=== PATIENT | male | born 1985 | race Two or more races ===

== ENCOUNTER 2019-12-21 11:53 | Outpatient (REF) | payer MEDICARE, MEDICAID, SELFPAY ==
[2019-12-21 13:50] LABS: MANUAL DIFF FLAG NO
[2019-12-21 13:59] LABS: Basophils Percent Auto 0.6 % (0-2); Eosinophils Percent Auto 0.6 % (0-4); Hematocrit 42.8 % (42-52); Hemoglobin 13.4 g/dl (14.0-18.0); Imm Gran Abs Auto 0.02 X10*3/uL (0.00-0.03); Imm Gran Pct Auto 0.3 % (0.0-0.4); Lymphocytes Absolute Auto 2.6 X10*3/uL (1.2-4.9); Lymphocytes Percent Auto 40.7 % (20-40); Mean Corpuscular HGB Conc 31.3 g/dl (31.0-36.0); Mean Corpuscular Hemoglobin 26.1 pg (27.0-33.0); Mean Corpuscular Volume 83.4 fL (80-98); Mean Platelet Volume 9.7 fL (9.4-12.4); Monocytes Absolute Auto 0.5 X10*3/uL (0.1-1.2); Monocytes Percent Auto 7.9 % (2-11); Neutrophils Absolute Auto 3.2 X10*3/uL (2.0-8.3); Neutrophils Percent Auto 49.9 % (45-73); Platelet Count 263 X10*3/uL (160-400); Red Blood Count 5.13 X10*6/uL (4.60-5.80); Red Cell Distribution Width 15.4 % (11.0-16.0); White Blood Count 6.5 X10*3/uL (4.8-10.8)
[2019-12-21 14:29] LABS: Estimated Average Glucose 151 mg/dL; Hemoglobin A1c % 6.9 %
[2019-12-21 14:31] LABS: Anion Gap 16 (12-20); Blood Urea Nitrogen 10 mg/dL (9-16); Calcium 9.2 mg/dL (8.4-10.2); Carbon Dioxide 20 mmol/L (22-29); Chloride 106 mmol/L (96-108); Estimated Glomerular Filt Rate > 60; Glucose Random 181 mg/dL (60-115); Potassium 4.1 mmol/l (3.3-5.1); Sodium 138 mmol/L (135-145)
[2019-12-21 14:47] LABS: TSH reflex Free T4 1.07 mIU/mL (0.32-4.0)
[2019-12-23 06:56] LABS: LDL Cholesterol Direct 110 mg/dL (<100)
== END 2019-12-21 11:54 | disposition home or self-care (01) ==
LOC: HO.HMGCLDS 11:53
PROVIDERS: PCP Internal Medicine; Visit Provider Internal Medicine
DX: E78.9 Disorder of lipoprotein metabolism, unspecified (principal); Z72.0 Tobacco use; K21.9 Gastro-esophageal reflux disease without esophagitis; J45.909 Unspecified asthma, uncomplicated; E13.9 Other specified diabetes mellitus without complications; Z79.4 Long term (current) use of insulin; F33.9 Major depressive disorder, recurrent, unspecified; F41.1 Generalized anxiety disorder
CPT/HCPCS: 36415; 80048; 83036; 83721; 84443; 85025

== ENCOUNTER 2020-10-24 13:14 | Outpatient (REF) | payer MEDICARE, MEDICAID, SELFPAY ==
[2020-10-24 14:01] LABS: Hematocrit 41.4 % (42-52)
[2020-10-24 14:19] LABS: Creatinine Urine 161.81 mg/dL
[2020-10-24 14:34] LABS: Estimated Average Glucose 160 mg/dL; Hemoglobin A1c % 7.2 %
[2020-10-24 14:35] LABS: Alanine Aminotransferase 22 U/L (0-40); Albumin Level 4.1 g/dL (3.5-5.0); Alkaline Phosphatase 72 U/L (39-117); Anion Gap 13 (12-20); Aspartate Amino Transferase 11 U/L (5-37); Bilirubin Direct < 0.2 mg/dL (0.0-0.5); Bilirubin Total 0.2 mg/dL (0.0-1.0); Blood Urea Nitrogen 9 mg/dL (9-16); Calcium 9.1 mg/dL (8.4-10.2); Carbon Dioxide 22 mmol/L (22-29); Chloride 108 mmol/L (96-108); Estimated Glomerular Filt Rate > 60; Glucose Random 206 mg/dL (60-115); Potassium 4.4 mmol/L (3.3-5.1); Sodium 139 mmol/L (135-145); Total Protein 6.8 g/dL (6.5-8.0)
[2020-10-24 14:40] LABS: Microalbum/Creatinine Ratio Ur 9.2 ug/mg cr
[2020-10-25 08:12] LABS: Syphilis Screen Nonreactive (Nonreactive)
[2020-10-25 08:30] LABS: HBc Num1 0.05 S/CO (0.00-0.79); HBsAGNum1 0.22 S/CO (0.00-0.99); HIV AB/AG Nonreactive (Nonreactive); HIV Num 1 0.08 S/CO (0.00-0.99); Hepatitis A Antibody IgM 0.18 Index (0-0.79); Hepatitis B Core Antibody Nonreactive (Nonreactive); Hepatitis B Surface Antigen Negative (Negative); ~HepC Num1 0.08 S/CO (0.00-0.79); ~Hepatitis A Antibody IgM Nonreactive (Nonreactive); ~Hepatitis C Antibody Nonreactive (Nonreactive)
[2020-10-25 08:42] LABS: HBS Num1 19.54 mIU/mL (0-7.99); ~Hepatitis B Surface Antibody REACTIVE (Nonreactive)
[2020-10-25 15:47] LABS: Herpes Simplex Type 2 IgG <0.90 index
== END 2020-10-24 13:15 | disposition home or self-care (01) ==
LOC: HO.HMGCLDS 13:14
PROVIDERS: PCP Internal Medicine; Visit Provider Internal Medicine
DX: E78.9 Disorder of lipoprotein metabolism, unspecified (principal); E66.01 Morbid (severe) obesity due to excess calories; Z68.42 Body mass index [BMI] 45.0-49.9, adult; E11.65 Type 2 diabetes mellitus with hyperglycemia; I10 Essential (primary) hypertension; J45.40 Moderate persistent asthma, uncomplicated; Z20.2 Contact with and (suspected) exposure to infections with a predominantly sexual mode of transmission; Z79.4 Long term (current) use of insulin; Z72.0 Tobacco use
CPT/HCPCS: 36415; 80053; 82043; 82248; 83036; 85014; 85018; 86695; 86696; 86704; 86706; 86709; 86780; 86803; 87340; 87389

== ENCOUNTER → 2020-11-28 13:37 | Outpatient (BNVA) | payer MEDICARE, MEDICAID, SELFPAY | PROVIDERS: PCP Internal Medicine; Visit Provider Nurse Practitioner Gerontology | DX: E11.65 Type 2 diabetes mellitus with hyperglycemia (principal); E78.5 Hyperlipidemia, unspecified; I10 Essential (primary) hypertension; F17.200 Nicotine dependence, unspecified, uncomplicated; E66.09 Other obesity due to excess calories; F41.8 Other specified anxiety disorders; Z68.41 Body mass index [BMI] 40.0-44.9, adult; J30.2 Other seasonal allergic rhinitis; T78.49XA Other allergy, initial encounter; Z88.8 Allergy status to other drugs, medicaments and biological substances; Z79.4 Long term (current) use of insulin; Z79.899 Other long term (current) drug therapy | CPT/HCPCS: 82947; Q3014 ==

== ENCOUNTER → 2020-12-12 12:22 | Outpatient (BNVA) | payer MEDICARE, MEDICAID, SELFPAY | PROVIDERS: PCP Internal Medicine; Visit Provider Nurse Practitioner Gerontology | DX: E11.65 Type 2 diabetes mellitus with hyperglycemia (principal); E78.5 Hyperlipidemia, unspecified; E66.01 Morbid (severe) obesity due to excess calories; I10 Essential (primary) hypertension; Z79.4 Long term (current) use of insulin; Z68.42 Body mass index [BMI] 45.0-49.9, adult | CPT/HCPCS: 82947; 99212 ==

== ENCOUNTER 2020-12-13 14:01 | Outpatient (REF) | payer MEDICARE, MEDICAID, SELFPAY ==
--- NOTE | ~2020-12-13 | XR_ITS ---
EXAMINATION: XR CHEST CLINICAL INFORMATION: Unspecified asthma. Acute exacerbation. COMPARISON: 03/02/2019 TECHNIQUE: 2 views of the chest were obtained. FINDINGS: Lungs are well-inflated and clear. Trachea is midline in position. No interstitial disease, consolidation or mass. No pulmonary edema, pleural effusion or pneumothorax. Cardiac silhouette and pulmonary vessels are normal in size. The mediastinum and samuel have normal contour. There are several old, healed left anterior rib fractures. Otherwise, the visualized bones, and upper abdomen, are unremarkable. XR/XR chest 2V IMPRESSION: No acute cardiopulmonary abnormality.
== END 2020-12-13 14:02 | disposition home or self-care (01) ==
LOC: HO.HMGCX 14:01
PROVIDERS: PCP Internal Medicine; Visit Provider Physician Assistant Medical
DX: J45.901 Unspecified asthma with (acute) exacerbation (principal); R05.9 Cough, unspecified
CPT/HCPCS: 71046

== ENCOUNTER 2020-12-13 14:36 | Outpatient (REF) | payer MEDICARE, MEDICAID, SELFPAY | END 2020-12-13 14:37 | disposition home or self-care (01) | LOC: HO.LAB 14:36 | PROVIDERS: Visit Provider Physician Assistant Medical | DX: Z20.822 Contact with and (suspected) exposure to COVID-19 (principal); R05.9 Cough, unspecified; J45.901 Unspecified asthma with (acute) exacerbation | CPT/HCPCS: U0003; U0005 ==

== ENCOUNTER 2021-02-12 14:33 | Outpatient (REF) | payer MEDICARE, MEDICAID, SELFPAY ==
[2021-02-12 16:54] LABS: Estimated Average Glucose 163 mg/dL; Hemoglobin A1c % 7.3 %
[2021-02-12 16:56] LABS: Alanine Aminotransferase 22 U/L (0-40); Albumin Level 4.2 g/dL (3.5-5.0); Alkaline Phosphatase 57 U/L (39-117); Anion Gap 13 (12-20); Aspartate Amino Transferase 17 U/L (5-37); Bilirubin Total 0.4 mg/dL (0.0-1.0); Blood Urea Nitrogen 7 mg/dL (9-16); Calcium 9.5 mg/dL (8.4-10.2); Carbon Dioxide 22 mmol/L (22-29); Chloride 107 mmol/L (96-108); Cholesterol 175 mg/dL; Estimated Glomerular Filt Rate > 60; Glucose Fasting 120 mg/dL (60-99); HDL Cholesterol 33 mg/dL; LDL Cholesterol Calculated 119 mg/dl; Potassium 3.6 mmol/L (3.3-5.1); Sodium 138 mmol/L (135-145); Triglycerides 116 mg/dL
[2021-02-14 02:32] LABS: LDL Cholesterol Direct 129 mg/dL (<100)
== END 2021-02-12 14:34 | disposition home or self-care (01) ==
LOC: HO.HMGCLDS 14:33
PROVIDERS: Absent Provider Nurse Practitioner Gerontology; PCP Internal Medicine; Visit Provider Internal Medicine
DX: E11.65 Type 2 diabetes mellitus with hyperglycemia (principal); E66.01 Morbid (severe) obesity due to excess calories; E78.9 Disorder of lipoprotein metabolism, unspecified; I10 Essential (primary) hypertension; J45.40 Moderate persistent asthma, uncomplicated; K21.9 Gastro-esophageal reflux disease without esophagitis; Z68.42 Body mass index [BMI] 45.0-49.9, adult; Z72.0 Tobacco use; Z79.4 Long term (current) use of insulin
CPT/HCPCS: 36415; 80048; 80053; 80061; 83036; 83721

== ENCOUNTER → 2021-07-03 13:39 | Outpatient (BNVA) | payer MEDICARE, MEDICAID, SELFPAY | PROVIDERS: PCP Internal Medicine; Visit Provider Nurse Practitioner Gerontology | DX: E78.5 Hyperlipidemia, unspecified (principal); E66.01 Morbid (severe) obesity due to excess calories; I10 Essential (primary) hypertension; E11.65 Type 2 diabetes mellitus with hyperglycemia; Z79.4 Long term (current) use of insulin; Z68.41 Body mass index [BMI] 40.0-44.9, adult | CPT/HCPCS: 82947; 83036; 99212 ==

== ENCOUNTER 2022-10-04 14:12 | Outpatient (AMB) | payer MEDICARE, MEDICAID, SELFPAY ==
[2022-10-04 14:14] VITALS: BP 140/90; PULSE 107; O2SAT 97; BMI 37.8
--- NOTE | 2022-10-04 14:14 | MHC.PC.OV ---
Vital Signs 10/04/22 14:14 Height 5 ft 9 in Weight 256 lb 4 oz BMI 37.8 BP 140/90 H Blood Pressure Location Lt brachial Position Sitting Pulse 107 H Pulse Source Pulse Oximeter Pulse Oximetry (%) 97 Oxygen Delivery Method Room Air Intake Visit Reasons: Medication follow up, due for diabetic eye exam Allergies iodine [IODINE] Allergy (Unknown, Verified 10/04/22 14:15) RASH, unknown Environmental Allergy (Unknown, Uncoded 01/11/22 15:40) Unknown Loverisol Allergy (Unknown, Uncoded 01/11/22 15:40) unknown SEASONAL ALLERGIES Allergy (Unknown, Uncoded 01/11/22 15:40) ASTHMA Medication List - Last Reconciled 10/04/22 by Manav Jones MD albuterol sulfate 90 mcg/actuation (ProAir HFA) 2 puffs inhalation Q4H PRN albuterol sulfate 90 mcg/actuation 2 puffs inhalation Q6H PRN 30 days alcohol swabs (Alcohol Prep Pads) 2 pad topical DAILY 90 days blood sugar diagnostic (EmergentDetectionuch Ultra Test strips) 4x daily blood-glucose meter (EmergentDetectionuch Ultra2 Meter kit) As directed bupropion HCl 150 mg PO QAM bupropion HCl 300 mg PO DAILY divalproex 500 mg PO BID dulaglutide (Trulicity) 0.75 mg (0.5 mL) subcut QWEEK hydroxyzine HCl 10 mg PO BEDTIME PRN insulin glargine U-300 conc (Toujeo Max U-300 SoloStar) 80 units (0.2667 mL) subcut DAILY lancets (FreeStyle Lancets) As directed 3 times a day lancets (Wenjuan.comTouch UltraSoft Lancets) 4x daily loratadine 10 mg PO DAILY losartan 25 mg PO QAM metoprolol tartrate 50 mg PO BID montelukast 10 mg PO BEDTIME pantoprazole 40 mg PO DAILY 90 days pen needle, diabetic (Comfort EZ Pen [place]) USE DIRECTED ONCE DAILY risperidone 3 mg PO simvastatin 80 mg PO BEDTIME 90 days topiramate 200 mg PO BID Tobacco use date assessed: 10/04/22 Dental Screening Dental Screen Date: 10/04/22 Did you have a dental visit in the last 12 months?: Yes Did you have a dental problem in the last 6 months where you did not have access to dental care?: No Was dental information given to patient?: No HPI Medication follow up, due for diabetic eye exam HPI Details Patient is a 37-year-old male came in today for his follow-up appointment, He was last seen December of last year and did not come in for follow-up after that Patient is currently on Toujeo 80 units, Trulicity 0.75 mg/week Intolerant of metformin due to diarrhea Hemoglobin A1c is due Asthma is stable patient is taking Symbicort 2 puffs b.i.d.. Patient is also on montelukast. Hypertension: Patient is taking losartan 25 mg daily and metoprolol 50 mg b.i.d. blood pressure is slightly elevated today at 140/90 Dyspepsia stable with omeprazole 40 mg, need refill Patient is also on simvastatin 80 mg for lipid control Patient have intellectual disability And psychiatric illness which is being managed by psychiatry Patient also is obese with a BMI of 37.8 losing weight gradually Due for labs Follow-up 3 months [facility] Medical History Anxiety, generalized Asthma Bipolar disorder Chronic GERD Current use of insulin Depression, major, recurrent DM2 (diabetes mellitus, type 2) Essential hypertension History of alcohol abuse Hyperlipidemia LDL goal <100 Lipid disorder Obesity due to excess calories Schizophrenia Sleep apnea Suicide attempt by multiple drug overdose Tobacco abuse Type 2 diabetes mellitus with hyperglycemia, with long-term current use of insulin Surgical History History of foot surgery History of surgery Family History Father No problems noted. Mother Breast cancer Diabetes Mental health disorder Paternal Aunt Diabetes Social History Household Members: None Housing: Apartment Alcohol intake: former Patient Tobacco Use Status: Current everyday Tobacco user Cigarette Packs Per Day: 0.5 e-Cigarette/Vaping Use: Never Used Substance Use Type: Marijuana Current occupational status: unemployed Cognitive needs: No Hearing needs: No Vision needs: No Questionnaire Thrive Questionnaire Date Thrive assessed: 05/15/21 AUDIT C Alcohol Use Questionnaire (AUDIT-C) 1. How often do you have a drink containing alcohol?: 2-4 times a month 2. How many drinks containing alcohol do you have on a typical day when you are drinking?: 1 or 2 3. How often do you have six or more drinks on one occasion?: Never Total Score: 2 Score Reviewed/Action Taken: Yes KOKI-7 AMB Questionnaire KOIK-7 Date KOKI - 7 assessed: 05/15/21 Source: Developed by Drs. Gianfranco Cardoso, Cait Centeno, Mark Montano and colleagues, with an educational janice from [employer]. Review of Systems Const Denies chills and Denies fever(s) ENT Denies epistaxis and Denies nasal discharge Card Denies chest pain Resp Denies chest congestion, Denies cough and Denies hemoptysis GI Denies diarrhea and Denies nausea Skin/Breast Denies rash Neuro Reports no additional complaints Psych Reports no additional complaints Endo Reports no additional complaints Physical exam (Primary Care) Vital Signs: Last Vital Signs Pulse 107 H 10/04/22 14:14 BP 140/90 H 10/04/22 14:14 Pulse Ox 97 10/04/22 14:14 Oxygen Delivery Method Room Air 10/04/22 14:14 BMI result Body Mass Index 37.8 Tobacco/Smoking Status: Tobacco use Status Tobacco use date assessed 10/04/22 10/04/22 14:19 Patient Tobacco Use Status Current everyday Tobacco 10/04/22 14:16 e-Cigarette/Vaping Use Never Used 10/04/22 14:19 Thrive Assessment: Date of Thrive Assessment Date Thrive assessed 05/15/21 10/04/22 14:16 Const General: cooperative, comfortable and no acute distress Orientation/consciousness: patient oriented x3 HENMN Head: Yes normocephalic Eyes General: appearance normal, both eyes and all related structures Neck Neck: Yes supple Resp Effort & Inspection: normal respiratory effort, no cough and no stridor Cardio Rhythm: regular rhythm Heart sounds: S1 normal heart sound present and S2 normal heart sound present Skin General skin exam: turgor normal Neuro General: patient oriented x3, tone normal and moves all extremities Extrem Right lower extremity: no edema Left lower extremity: no edema Assessment and Plan Assessment & Plan (1) DM2 (diabetes mellitus, type 2): Code(s): E11.9 - Type 2 diabetes mellitus without complications (2) Psychiatric illness: Code(s): F99 - Mental disorder, not otherwise specified (3) Intellectual disability: Code(s): F79 - Unspecified intellectual disabilities (4) Lipid disorder: Code(s): E78.9 - Disorder of lipoprotein metabolism, unspecified (5) Current use of insulin: Code(s): 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 (6) Tobacco abuse: Code(s): Z72.0 - Tobacco use (7) Hyperlipidemia LDL goal <100: Code(s): E78.5 - Hyperlipidemia, unspecified (8) Type 2 diabetes mellitus with hyperglycemia, with long-term current use of insulin: Code(s): E11.65 - Type 2 diabetes mellitus with hyperglycemia; 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 (9) Depression, major, recurrent: Code(s): F33.9 - Major depressive disorder, recurrent, unspecified (10) Anxiety, generalized: Code(s): F41.1 - Generalized anxiety disorder (11) Chronic GERD: Code(s): K21.9 - Gastro-esophageal reflux disease without esophagitis (12) Schizophrenia: Code(s): F20.9 - Schizophrenia, unspecified (13) Obesity due to excess calories: Code(s): E66.09 - Other obesity due to excess calories Qualifiers: Obesity classification: adult class 3 (BMI >= 40) Serious obesity comorbidity presence: with serious comorbidity Body mass index: BMI 45.0-49.9 Qualified Code(s): E66.01 - Morbid (severe) obesity due to excess calories; Z68.42 - Body mass index [BMI] 45.0-49.9, adult (14) Essential hypertension: Code(s): I10 - Essential (primary) hypertension (15) Asthma, moderate persistent: Code(s): J45.40 - Moderate persistent asthma, uncomplicated Plan Patient is a 37-year-old male came in today for his follow-up appointment, He was last seen December of last year and did not come in for follow-up after that Patient is currently on Toujeo 80 units, Trulicity 0.75 mg/week Intolerant of metformin due to diarrhea Hemoglobin A1c is due Asthma is stable patient is taking Symbicort 2 puffs b.i.d.. Patient is also on montelukast. Hypertension: Patient is taking losartan 25 mg daily and metoprolol 50 mg b.i.d. blood pressure is slightly elevated today at 140/90 Dyspepsia stable with omeprazole 40 mg, need refill Patient is also on simvastatin 80 mg for lipid control Patient have intellectual disability And psychiatric illness which is being managed by psychiatry Patient also is obese with a BMI of 37.8 losing weight gradually Due for labs Follow-up 3 months Orders: Orders Comprehensive Met. 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 Hemoglobin A1c Today E11.65 - Type 2 diabetes mellitus with hyperglycemia, E11.9 - Type 2 diabetes mellitus without complications, E78.5 - Hyperlipidemia, unspecified, E78.9 - Disorder of lipoprotein metabolism, unspecified, F79 - Unspecified intellectual disabilities, F99 - Mental disorder, not otherwise specified, Z72.0 - Tobacco use, 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 LDL Cholesterol Direct Today E11.65 - Type 2 diabetes mellitus with hyperglycemia, E11.9 - Type 2 diabetes mellitus without complications, E78.5 - Hyperlipidemia, unspecified, E78.9 - Disorder of lipoprotein metabolism, unspecified, F79 - Unspecified intellectual disabilities, F99 - Mental disorder, not otherwise specified, Z72.0 - Tobacco use, Z79.4 - snf (current) use of insulin TSH reflex Free T4 Today E11.65 - Type 2 diabetes mellitus with hyperglycemia, E11.9 - Type 2 diabetes mellitus without complications, E78.5 - Hyperlipidemia, unspecified, E78.9 - Disorder of lipoprotein metabolism, unspecified, F79 - Unspecified intellectual disabilities, F99 - Mental disorder, not otherwise specified, Z72.0 - Tobacco use, 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 Microalbumin, Random (w Creat) Today E11.65 - Type 2 diabetes mellitus with hyperglycemia, E11.9 - Type 2 diabetes mellitus without complications, E78.5 - Hyperlipidemia, unspecified, E78.9 - Disorder of lipoprotein metabolism, unspecified, F79 - Unspecified intellectual disabilities, F99 - Mental disorder, not otherwise specified, Z72.0 - Tobacco use, 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 Complete Blood Count Auto Diff Today E11.65 - Type 2 diabetes mellitus with hyperglycemia, E11.9 - Type 2 diabetes mellitus without complications, E78.5 - Hyperlipidemia, unspecified, E78.9 - Disorder of lipoprotein metabolism, unspecified, F79 - Unspecified intellectual disabilities, F99 - Mental disorder, not otherwise specified, Z72.0 - Tobacco use, 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 Medications: Refilled pantoprazole 40 mg PO DAILY 90 tabs 0RF 90 days simvastatin 80 mg PO BEDTIME 90 tabs 0RF 90 days E78.9 - Disorder of lipoprotein metabolism, unspecified metoprolol tartrate 50 mg PO BID 180 tabs 0RF losartan 25 mg PO QAM 90 tabs 0RF loratadine 10 mg PO DAILY 90 tabs 0RF dulaglutide (Trulicity) 0.75 mg (0.5 mL) subcut QWEEK 6 mL 2RF E11.65 - Type 2 diabetes mellitus with hyperglycemia insulin glargine U-300 conc (Toujeo Max U-300 SoloStar) 80 units (0.2667 mL) subcut DAILY 24 mL 1RF E11.65 - Type 2 diabetes mellitus with hyperglycemia, Z79.4 - snf (current) use of insulin Coding Level of Care Code Est Pt Level 4 (10687) Diagnoses DM2 (diabetes mellitus, type 2) E11.9 Psychiatric illness F99 Intellectual disability F79 Lipid disorder E78.9 Current use of insulin Z79.4 Tobacco abuse Z72.0 Hyperlipidemia LDL goal <100 E78.5 Type 2 diabetes mellitus with hyperglycemia, with long-term current use of insulin E11.65; Z79.4 Depression, major, recurrent F33.9 Anxiety, generalized F41.1 Chronic GERD K21.9 Schizophrenia F20.9 Obesity due to excess calories E66.01; Z68.42 Obesity classification: adult class 3 (BMI >= 40) Serious obesity comorbidity presence: with serious comorbidity Body mass index: BMI 45.0-49.9 Essential hypertension I10 Asthma, moderate persistent J45.40
== END 2022-10-04 14:38 | disposition home or self-care (01) ==
PROVIDERS: PCP Internal Medicine; Visit Provider Internal Medicine
DX: E11.65 Type 2 diabetes mellitus with hyperglycemia (principal); Z79.4 Long term (current) use of insulin; F33.9 Major depressive disorder, recurrent, unspecified; K21.9 Gastro-esophageal reflux disease without esophagitis; F99 Mental disorder, not otherwise specified; F79 Unspecified intellectual disabilities; E78.9 Disorder of lipoprotein metabolism, unspecified; Z72.0 Tobacco use; E78.5 Hyperlipidemia, unspecified; F41.1 Generalized anxiety disorder; F20.9 Schizophrenia, unspecified; E66.01 Morbid (severe) obesity due to excess calories
CPT/HCPCS: 99214

== ENCOUNTER 2022-10-04 14:40 | Outpatient (REF) | payer MEDICARE, MEDICAID, SELFPAY ==
[2022-10-04 16:41] LABS: MANUAL DIFF FLAG NO
[2022-10-04 16:48] LABS: Basophils Percent Auto 0.5 % (0-2); Eosinophils Absolute Auto 0.1 X10*3/uL (0.0-0.4); Eosinophils Percent Auto 0.6 % (0-4); Hematocrit 39.1 % (42.0-52.0); Hemoglobin 12.5 g/dl (14.0-18.0); Imm Gran Abs Auto 0.04 X10*3/uL (0.00-0.03); Imm Gran Pct Auto 0.5 % (0.0-0.4); Lymphocytes Absolute Auto 2.2 X10*3/uL (1.2-4.9); Lymphocytes Percent Auto 25.6 % (20-40); Mean Corpuscular Hemoglobin 24.1 pg (27.0-33.0); Mean Corpuscular Volume 75.5 fL (80.0-98.0); Mean Platelet Volume 9.8 fL (9.4-12.4); Monocytes Absolute Auto 0.7 X10*3/uL (0.1-1.2); Monocytes Percent Auto 8.6 % (2-11); Neutrophils Absolute Auto 5.5 x10*3/uL (2.0-8.3); Neutrophils Percent Auto 64.2 % (45-73); Platelet Count 326 X10*3/uL (160-400); Red Blood Count 5.18 X10*6/uL (4.60-5.80); Red Cell Distribution Width 16.5 % (11.0-16.0); White Blood Count 8.6 X10*3/uL (4.8-10.8)
[2022-10-04 17:24] LABS: Alanine Aminotransferase 14 U/L (0-40); Albumin Level 4.5 g/dL (3.5-5.0); Alkaline Phosphatase 57 U/L (39-117); Anion Gap 14 (12-20); Aspartate Amino Transferase 12 U/L (5-37); Bilirubin Total 0.3 mg/dL (0.0-1.0); Blood Urea Nitrogen 11 mg/dL (9-16); Calcium 10.7 mg/dL (8.4-10.2); Carbon Dioxide 23 mmol/L (22-29); Chloride 107 mmol/L (96-108); Estimated Glomerular Filt Rate > 60; Glucose Random 135 mg/dL (60-115); Potassium 4.1 mmol/L (3.3-5.1); Sodium 140 mmol/L (135-145); Total Protein 7.9 g/dL (6.5-8.0)
[2022-10-05 03:23] LABS: Estimated Average Glucose 111 mg/dL; Hemoglobin A1c % 5.5 %
[2022-10-05 16:09] LABS: LDL Cholesterol Direct 99 mg/dL (<100)
== END 2022-10-04 14:41 | disposition home or self-care (01) ==
LOC: HO.HMGCLDS 14:40
PROVIDERS: PCP Internal Medicine; Visit Provider Internal Medicine
DX: E11.65 Type 2 diabetes mellitus with hyperglycemia (principal); E78.5 Hyperlipidemia, unspecified; E78.9 Disorder of lipoprotein metabolism, unspecified; F79 Unspecified intellectual disabilities; F99 Mental disorder, not otherwise specified; Z72.0 Tobacco use; Z79.4 Long term (current) use of insulin
CPT/HCPCS: 36415; 80053; 83036; 83721; 84443; 85025

== ENCOUNTER 2023-01-08 14:06 | Outpatient (AMB) | payer MEDICARE, MEDICAID, SELFPAY ==
--- NOTE | 2023-01-08 14:10 | A.OFFPC_ITS ---
Vital Signs 01/08/23 14:12 Height 5 ft 9 in Weight 256 lb BMI 37.8 BP 110/74 Blood Pressure Location Rt brachial Position Sitting Pulse 84 Pulse Source Pulse Oximeter Pulse Oximetry (%) 98 Oxygen Delivery Method Room Air Intake Visit Reasons: 3 month follow up Allergies iodine [IODINE] Allergy (Unknown, Verified 01/08/23 14:13) RASH, unknown Environmental Allergy (Unknown, Uncoded 01/08/23 14:13) Unknown Loverisol Allergy (Unknown, Uncoded 01/08/23 14:13) unknown SEASONAL ALLERGIES Allergy (Unknown, Uncoded 01/08/23 14:13) ASTHMA Medication List - Last Reconciled 01/08/23 by Manav Jones MD albuterol sulfate 90 mcg/actuation (ProAir HFA) 2 puffs inhalation Q4H PRN albuterol sulfate 90 mcg/actuation 2 puffs inhalation Q6H PRN 30 days alcohol swabs (Alcohol Prep Pads) 2 pad topical BID 90 days blood sugar diagnostic (Confideuch Ultra Test strips) 4x daily blood-glucose meter (Confideuch Ultra2 Meter kit) As directed bupropion HCl 150 mg PO QAM bupropion HCl 300 mg PO DAILY divalproex 500 mg PO BID dulaglutide (Trulicity) 0.75 mg (0.5 mL) subcut QWEEK hydroxyzine HCl 10 mg PO BEDTIME PRN insulin glargine U-300 conc (Toujeo Max U-300 SoloStar) 60 units (0.2 mL) subcut DAILY lancets 4x daily lancets (FreeStyle Lancets) As directed 3 times a day loratadine 10 mg PO DAILY losartan 25 mg PO QAM metoprolol tartrate 50 mg PO BID montelukast 10 mg PO BEDTIME pantoprazole 40 mg PO DAILY 90 days pen needle, diabetic (Comfort EZ Pen [place]) USE DIRECTED ONCE DAILY risperidone 3 mg PO simvastatin 80 mg PO BEDTIME 90 days topiramate 200 mg PO BID Tobacco use date assessed: 01/08/23 Dental Screening Dental Screen Date: 01/08/23 Did you have a dental visit in the last 12 months?: Yes Did you have a dental problem in the last 6 months where you did not have access to dental care?: No Was dental information given to patient?: Patient has dentist HPI 3 month follow up HPI Details Patient is a 37-year-old male came in today for his follow-up appointment Patient is currently on Toujeo 60 units, Trulicity 0.75 mg/week Intolerant of metformin due to diarrhea His last hemoglobin A1c was 5.5% in September that is when his Toujeo from 80 units to 60 units Asthma is stable patient is taking Symbicort 2 puffs b.i.d.. Patient is also on montelukast. Hypertension: Patient is taking losartan 25 mg daily and metoprolol 50 mg b.i.d. blood pressure is well controlled Dyspepsia stable with omeprazole 40 mg, need refill Patient is also on simvastatin 80 mg for lipid control Patient have intellectual disability Patient have a history of schizophrenia, major depression and anxiety Currently taking medication through Psychiatry Patient also is obese with a BMI of 37.8 losing weight gradually Labs to be done before next visit/order placed Follow-up 3 months [facility] Medical History DM2 (diabetes mellitus, type 2) Bipolar disorder Obesity due to excess calories Hyperlipidemia LDL goal <100 Essential hypertension Type 2 diabetes mellitus with hyperglycemia, with long-term current use of insulin Sleep apnea Tobacco abuse Suicide attempt by multiple drug overdose History of alcohol abuse Schizophrenia Lipid disorder Chronic GERD Asthma Anxiety, generalized Depression, major, recurrent Current use of insulin Surgical History History of foot surgery History of surgery Family History Father No problems noted. Mother Breast cancer Diabetes Mental health disorder Paternal Aunt Diabetes Social History Household Members: None Housing: Apartment Alcohol intake: former Patient Tobacco Use Status: Current everyday Tobacco user Cigarette Packs Per Day: 0.5 e-Cigarette/Vaping Use: Never Used Substance Use Type: Marijuana Current occupational status: unemployed Cognitive needs: No Hearing needs: No Vision needs: No Questionnaire PHQ-9 Over the last 2 weeks, how often have you been bothered by any of the following problems? 1. Little interest or pleasure in doing things: not at all 2. Feeling down, depressed, or hopeless: not at all 3. Trouble falling or staying asleep, or sleeping too much: not at all 4. Feeling tired or having little energy: not at all 5. Poor appetite or overeating: not at all 6. Feeling bad about yourself - or that you are a failure or have let yourself or your family down: not at all 7. Trouble concentrating on things, such as reading the newspaper or watching television: not at all 8. Moving or speaking so slowly that other people could have noticed. Or the opposite - being so fidgety or restless that you have been moving around a lot more than usual: not at all 9. Thoughts that you would be better off or of hurting yourself in some way: not at all Total score: 0 Depression Screening Interpretation: Negative Depression Screening Done: Yes 79252 - PHQ-9 Billing: Yes Source: Developed by Drs. Gianfranco Cardoso, Cait Centeno, Mark Montano and colleagues, with an educational janice from [employer]. Thrive Questionnaire Date Thrive assessed: 01/08/23 I am a: Patient What is your living situation today?: I have a steady place to live Within the past 12 months, did the food you bought not last and you didn't have the money to get more?: Never true Within the past 12 months, did you worry whether your food would run out before you got money to buy more?: Never true Do you have trouble paying for medicines?: No Do you have trouble getting transportation to medical appointments?: No Do you have trouble paying your heating and electricity bill?: No Do you have trouble taking care of your child, family member or friend?: No Do you have trouble with day-to-day activities such as bathing, preparing meals, shopping, managing finances, etc.?: No Are you currently unemployed and looking for a job?: No Are you interested in more education?: No Please select the resources that you would like help with: None Currently or been in a relationship where the following occur: no concerns reported KOKI-7 AMB Questionnaire KOKI-7 Date KOKI - 7 assessed: 01/08/23 Feeling nervous, anxious, or on edge: 0 = Not at all Not being able to stop or control worryin = Not at all Worrying too much about different things: 0 = Not at all Trouble relaxin = Not at all Being so restless that it is hard to sit still: 0 = Not at all Becoming easily annoyed or irritable: 0 = Not at all Feeling afraid as if something awful might happen: 0 = Not at all Total KOKI-7 score (0-4 normal; 5-9 mild; 10-14 moderate; 15-21 severe): 0 Source: Developed by Drs. Gianfranco Cardoso, Cait Centeno, Mark Montano and colleagues, with an educational janice from [employer]. KOKI-7 Assessment Billing KOKI-7 Assessment Tool: KOKI-7 Assessment 40616 Review of Systems Const Denies chills and Denies fever(s) ENT Denies epistaxis and Denies nasal discharge Card Denies chest pain Resp Denies chest congestion, Denies cough and Denies hemoptysis GI Denies diarrhea and Denies nausea Skin/Breast Denies rash Neuro Reports no additional complaints Psych Reports no additional complaints Endo Reports no additional complaints Physical exam (Primary Care) Vital Signs: Last Vital Signs Pulse 84 01/08/23 14:12 BP 110/74 01/08/23 14:12 Pulse Ox 98 01/08/23 14:12 Oxygen Delivery Method Room Air 01/08/23 14:12 BMI result Body Mass Index 37.8 Tobacco/Smoking Status: Tobacco use Status Tobacco use date assessed 01/08/23 01/08/23 14:13 Patient Tobacco Use Status Current everyday Tobacco 01/08/23 14:12 e-Cigarette/Vaping Use Never Used 01/08/23 14:12 PHQ-9: PHQ-9 Score PHQ-9: Total score 0 01/08/23 14:18 Depression Screening Interpretation: Negative Thrive Assessment: Date of Thrive Assessment Date Thrive assessed 01/08/23 01/08/23 14:18 Currently or been in a relationship where the following occur: no concerns reported Const General: cooperative, comfortable and no acute distress Orientation/consciousness: patient oriented x3 HENLA Head: Yes normocephalic Eyes General: appearance normal, both eyes and all related structures Neck Neck: Yes supple Resp Effort & Inspection: normal respiratory effort, no cough and no stridor Cardio Rhythm: regular rhythm Heart sounds: S1 normal heart sound present and S2 normal heart sound present Skin General skin exam: turgor normal Neuro General: patient oriented x3, tone normal and moves all extremities Extrem Right lower extremity: no edema Left lower extremity: no edema Assessment and Plan Assessment & Plan (1) Type 1 diabetes mellitus with morbid obesity: Code(s): E10.69 - Type 1 diabetes mellitus with other specified complication; E66.01 - Morbid (severe) obesity due to excess calories (2) Asthma, moderate persistent: Code(s): J45.40 - Moderate persistent asthma, uncomplicated Qualifiers: Asthma complication type: uncomplicated Qualified Code(s): J45.40 - Moderate persistent asthma, uncomplicated (3) Essential hypertension: Code(s): I10 - Essential (primary) hypertension (4) Obesity due to excess calories: Code(s): E66.09 - Other obesity due to excess calories Qualifiers: Obesity classification: adult class 3 (BMI >= 40) Serious obesity comorbidity presence: with serious comorbidity Body mass index: BMI 45.0-49.9 Qualified Code(s): E66.01 - Morbid (severe) obesity due to excess calories; Z68.42 - Body mass index [BMI] 45.0-49.9, adult (5) Schizophrenia: Code(s): F20.9 - Schizophrenia, unspecified Qualifiers: Schizophrenia type: paranoid schizophrenia Qualified Code(s): F20.0 - Paranoid schizophrenia (6) Lipid disorder: Code(s): E78.9 - Disorder of lipoprotein metabolism, unspecified (7) Chronic GERD: Code(s): K21.9 - Gastro-esophageal reflux disease without esophagitis (8) Depression, major, recurrent: Code(s): F33.9 - Major depressive disorder, recurrent, unspecified Qualifiers: Active/Remission status: in partial remission Qualified Code(s): F33.41 - Major depressive disorder, recurrent, in partial remission (9) Current use of insulin: Code(s): Z79.4 - intermodal customer service (current) use of insulin Plan Patient is a 37-year-old male came in today for his follow-up appointment Patient is currently on Toujeo 60 units, Trulicity 0.75 mg/week Intolerant of metformin due to diarrhea His last hemoglobin A1c was 5.5% in September that is when his Toujeo from 80 units to 60 units Asthma is stable patient is taking Symbicort 2 puffs b.i.d.. Patient is also on montelukast. Hypertension: Patient is taking losartan 25 mg daily and metoprolol 50 mg b.i.d. blood pressure is well controlled Dyspepsia stable with omeprazole 40 mg, need refill Patient is also on simvastatin 80 mg for lipid control Patient have intellectual disability Patient have a history of schizophrenia, major depression and anxiety Currently taking medication through Psychiatry Patient also is obese with a BMI of 37.8 losing weight gradually Labs to be done before next visit/order placed Follow-up 3 months Orders: Orders Hemoglobin A1c Today E10.69 - Type 1 diabetes mellitus with other specified complication, E66.01 - Morbid (severe) obesity due to excess calories, E66.09 - Other obesity due to excess calories, E78.9 - Disorder of lipoprotein metabolism, unspecified, F20.9 - Schizophrenia, unspecified, F33.9 - Major depressive disorder, recurrent, unspecified, I10 - Essential (primary) hypertension, J45.40 - Moderate persistent asthma, uncomplicated, K21.9 - Gastro-esophageal reflux disease without esophagitis, Z79.4 - intermodal customer service (current) use of insulin Complete Blood Count Auto Diff Today E10.69 - Type 1 diabetes mellitus with other specified complication, E66.01 - Morbid (severe) obesity due to excess calories, E66.09 - Other obesity due to excess calories, E78.9 - Disorder of lipoprotein metabolism, unspecified, F20.9 - Schizophrenia, unspecified, F33.9 - Major depressive disorder, recurrent, unspecified, I10 - Essential (primary) hypertension, J45.40 - Moderate persistent asthma, uncomplicated, K21.9 - Gastro-esophageal reflux disease without esophagitis, Z79.4 - intermodal customer service (current) use of insulin Microalbumin, Random (w Creat) Today E10.69 - Type 1 diabetes mellitus with other specified complication, E66.01 - Morbid (severe) obesity due to excess calories, E66.09 - Other obesity due to excess calories, E78.9 - Disorder of lipoprotein metabolism, unspecified, F20.9 - Schizophrenia, unspecified, F33.9 - Major depressive disorder, recurrent, unspecified, I10 - Essential (primary) hypertension, J45.40 - Moderate persistent asthma, uncomplicated, K21.9 - Gastro-esophageal reflux disease without esophagitis, Z79.4 - long-term (current) use of 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 Panel Today E10.69 - Type 1 diabetes mellitus with other specified complication, E66.01 - Morbid (severe) obesity due to excess calories, E66.09 - Other obesity due to excess calories, E78.9 - Disorder of lipoprotein metabolism, unspecified, F20.9 - Schizophrenia, unspecified, F33.9 - Major depressive disorder, recurrent, unspecified, I10 - Essential (primary) hypertension, J45.40 - Moderate persistent asthma, uncomplicated, K21.9 - Gastro-esophageal reflux disease without esophagitis, Z79.4 - long-term (current) use of insulin LDL Cholesterol Direct Today E10.69 - Type 1 diabetes mellitus with other specified complication, E66.01 - Morbid (severe) obesity due to excess calories, E66.09 - Other obesity due to excess calories, E78.9 - Disorder of lipoprotein metabolism, unspecified, F20.9 - Schizophrenia, unspecified, F33.9 - Major depressive disorder, recurrent, unspecified, I10 - Essential (primary) hypertension, J45.40 - Moderate persistent asthma, uncomplicated, K21.9 - Gastro-esophageal reflux disease without esophagitis, Z79.4 - intermodal customer service (current) use of insulin Medications: Changed From insulin glargine U-300 conc (Toujeo Max U-300 SoloStar) 60 units (0.2 mL) subcut DAILY 24 mL 1RF E11.65 - Type 2 diabetes mellitus with hyperglycemia, Z79.4 - intermodal customer service (current) use of insulin To insulin glargine U-300 conc (Toujeo Max U-300 SoloStar) 50 units (0.1667 mL) subcut DAILY 24 mL 1RF E11.65 - Type 2 diabetes mellitus with hyperglycemia, Z79.4 - intermodal customer service (current) use of insulin From insulin glargine U-300 conc (Toujeo Max U-300 SoloStar) 50 units (0.1667 mL) subcut DAILY 24 mL 1RF E11.65 - Type 2 diabetes mellitus with hyperglycemia, Z79.4 - long-term (current) use of insulin To insulin glargine U-300 conc (Toujeo Max U-300 SoloStar) 60 units (0.2 mL) subcut DAILY 24 mL 1RF E11.65 - Type 2 diabetes mellitus with hyperglycemia, Z79.4 - intermodal customer service (current) use of insulin Coding Level of Care Code Est Pt Level 4 (03682) Diagnoses Type 1 diabetes mellitus with morbid obesity E10.69; E66.01 Moderate persistent asthma without complication J45.40 Asthma complication type: uncomplicated Essential hypertension I10 Class 3 severe obesity due to excess calories with serious comorbidity and body mass index (BMI) of 45.0 to 49.9 in adult E66.01; Z68.42 Obesity classification: adult class 3 (BMI >= 40) Serious obesity comorbidity presence: with serious comorbidity Body mass index: BMI 45.0-49.9 Paranoid schizophrenia F20.0 Schizophrenia type: paranoid schizophrenia Lipid disorder E78.9 Chronic GERD K21.9 Recurrent major depressive disorder, in partial remission F33.41 Active/Remission status: in partial remission Current use of insulin Z79.4 Additional Codes KOKI-7 Assessment Billing - OKKI-7 Assessment Tool: KOKI-7 Assessment [id number] ([id number])
[2023-01-08 14:12] VITALS: BP 110/74; PULSE 84; O2SAT 98; BMI 37.8
== END 2023-01-08 15:33 | disposition home or self-care (01) ==
PROVIDERS: PCP Internal Medicine; Visit Provider Internal Medicine
DX: E10.69 Type 1 diabetes mellitus with other specified complication (principal); E66.01 Morbid (severe) obesity due to excess calories; Z68.42 Body mass index [BMI] 45.0-49.9, adult; F20.0 Paranoid schizophrenia; F33.41 Major depressive disorder, recurrent, in partial remission; Z79.4 Long term (current) use of insulin; J45.40 Moderate persistent asthma, uncomplicated; I10 Essential (primary) hypertension; E78.9 Disorder of lipoprotein metabolism, unspecified; K21.9 Gastro-esophageal reflux disease without esophagitis
CPT/HCPCS: 99214

== ENCOUNTER 2023-07-08 15:18 | Outpatient (AMB) | payer MEDICARE, MEDICAID, SELFPAY ==
--- NOTE | 2023-07-08 15:22 | A.OFFPC_ITS ---
Vital Signs 07/08/23 15:23 Height 5 ft 9 in Weight 245 lb 6 oz BMI 36.2 BP 126/82 Blood Pressure Location Rt brachial Position Sitting Pulse 87 Pulse Source Pulse Oximeter Pulse Oximetry (%) 98 Oxygen Delivery Method Room Air Intake Visit Reasons: 9 month follow up Allergies iodine [IODINE] Allergy (Unknown, Verified 07/08/23 15:28) RASH, unknown Environmental Allergy (Unknown, Uncoded 01/08/23 14:13) Unknown Loverisol Allergy (Unknown, Uncoded 01/08/23 14:13) unknown SEASONAL ALLERGIES Allergy (Unknown, Uncoded 01/08/23 14:13) ASTHMA Medication List - Last Reconciled 07/08/23 by Manav Jones MD albuterol sulfate 90 mcg/actuation (ProAir HFA) 2 puffs inhalation Q4H PRN albuterol sulfate 90 mcg/actuation 2 puffs inhalation Q6H PRN 30 days alcohol swabs (Alcohol Prep Pads) 2 pad topical BID 90 days blood sugar diagnostic (OneTouch Ultra Test strips) 4x daily blood-glucose meter ([employer] Holding[employer] Ultra2 Meter kit) As directed bupropion HCl XL 150 mg PO QAM bupropion HCl XL 300 mg PO DAILY divalproex 500 mg PO BID dulaglutide (Trulicity) 0.75 mg (0.5 mL) subcut QWEEK hydroxyzine HCl 10 mg PO BEDTIME PRN insulin glargine U-300 conc (Toujeo Max U-300 SoloStar) 60 units (0.2 mL) subcut DAILY lancets 4x daily lancets (FreeStyle Lancets) As directed 3 times a day loratadine 10 mg PO DAILY losartan 25 mg PO QAM metoprolol tartrate 50 mg PO BID montelukast 10 mg PO BEDTIME pen needle, diabetic (Comfort EZ Pen Sparks) USE DIRECTED ONCE DAILY risperidone 3 mg PO simvastatin 80 mg PO BEDTIME 90 days topiramate 200 mg PO BID Tobacco use date assessed: 07/08/23 Dental Screening Dental Screen Date: 07/08/23 Did you have a dental visit in the last 12 months?: No Did you have a dental problem in the last 6 months where you did not have access to dental care?: No Was dental information given to patient?: No HPI 9 month follow up HPI Details Patient is a 38-year-old male came in today for his follow-up appointment Patient was last seen December of last year He is due for labs, order placed Patient is currently on Toujeo 60 units, Trulicity 0.75 mg/week, Intolerant of metformin due to diarrhea His last hemoglobin A1c was well-controlled Asthma is stable patient is taking Symbicort 2 puffs b.i.d.. Patient is also on montelukast. Hypertension: Patient is taking losartan 25 mg daily and metoprolol 50 mg b.i.d. blood pressure is well controlled Dyspepsia stable with omeprazole 40 mg, need refill Patient is also on simvastatin 80 mg for lipid control Patient have intellectual disability Patient have a history of schizophrenia, major depression and anxiety Currently taking medication through Psychiatry BMI is elevated, he is losing weight gradually Follow-up 3 months [facility] Medical History DM2 (diabetes mellitus, type 2) Bipolar disorder Obesity due to excess calories Hyperlipidemia LDL goal <100 Essential hypertension Type 2 diabetes mellitus with hyperglycemia, with long-term current use of insulin Sleep apnea Tobacco abuse Suicide attempt by multiple drug overdose History of alcohol abuse Schizophrenia Lipid disorder Chronic GERD Asthma Anxiety, generalized Depression, major, recurrent Current use of insulin Surgical History History of foot surgery History of surgery Family History Father No problems noted. Mother Breast cancer Diabetes Mental health disorder Paternal Aunt Diabetes Social History Household Members: None Housing: Apartment Alcohol intake: former Patient Tobacco Use Status: Current everyday Tobacco user Cigarette Packs Per Day: 0.5 e-Cigarette/Vaping Use: Never Used Substance Use Type: Marijuana Current occupational status: unemployed Cognitive needs: No Hearing needs: No Vision needs: No Questionnaire PHQ-9 Over the last 2 weeks, how often have you been bothered by any of the following problems? 1. Little interest or pleasure in doing things: not at all 2. Feeling down, depressed, or hopeless: not at all 3. Trouble falling or staying asleep, or sleeping too much: not at all 4. Feeling tired or having little energy: not at all 5. Poor appetite or overeating: not at all 6. Feeling bad about yourself - or that you are a failure or have let yourself or your family down: not at all 7. Trouble concentrating on things, such as reading the newspaper or watching television: not at all 8. Moving or speaking so slowly that other people could have noticed. Or the opposite - being so fidgety or restless that you have been moving around a lot more than usual: not at all 9. Thoughts that you would be better off or of hurting yourself in some way: not at all Total score: 0 Depression Screening Interpretation: Negative Depression Screening Done: Yes 55128 - PHQ-9 Billing: Yes Source: Developed by Drs. Gianfranco Cardoso, Cait Centeno, Mark Montano and colleagues, with an educational janice from [employer]. Thrive Questionnaire Date Thrive assessed: 07/08/23 I am a: Patient What is your living situation today?: I have a steady place to live Within the past 12 months, did the food you bought not last and you didn't have the money to get more?: Never true Within the past 12 months, did you worry whether your food would run out before you got money to buy more?: Never true Do you have trouble paying for medicines?: No Do you have trouble getting transportation to medical appointments?: No Do you have trouble paying your heating and electricity bill?: No Do you have trouble taking care of your child, family member or friend?: No Do you have trouble with day-to-day activities such as bathing, preparing meals, shopping, managing finances, etc.?: No Are you currently unemployed and looking for a job?: No Are you interested in more education?: No Please select the resources that you would like help with: None Currently or been in a relationship where the following occur: no concerns reported THRIVE Score: 0 AUDIT C Alcohol Use Questionnaire (AUDIT-C) 1. How often do you have a drink containing alcohol?: 2-4 times a month 2. How many drinks containing alcohol do you have on a typical day when you are drinking?: 1 or 2 3. How often do you have six or more drinks on one occasion?: Never Total Score: 2 Score Reviewed/Action Taken: Yes KOKI-7 AMB Questionnaire KOKI-7 Date KOKI - 7 assessed: 07/08/23 Feeling nervous, anxious, or on edge: 0 = Not at all Not being able to stop or control worryin = Not at all Worrying too much about different things: 0 = Not at all Trouble relaxin = Not at all Being so restless that it is hard to sit still: 0 = Not at all Becoming easily annoyed or irritable: 0 = Not at all Feeling afraid as if something awful might happen: 0 = Not at all Total KOKI-7 score (0-4 normal; 5-9 mild; 10-14 moderate; 15-21 severe): 0 Source: Developed by Drs. Gianfranco Cardoso, Cait Centeno, Mark Montano and colleagues, with an educational janice from [employer]. KOKI-7 Assessment Billing KOKI-7 Assessment Tool: KOKI-7 Assessment 76960 Review of Systems Const Denies chills and Denies fever(s) ENT Denies epistaxis and Denies nasal discharge Card Denies chest pain Resp Denies chest congestion, Denies cough and Denies hemoptysis GI Denies diarrhea and Denies nausea Skin/Breast Denies rash Neuro Reports no additional complaints Psych Reports no additional complaints Endo Reports no additional complaints Physical exam (Primary Care) Vital Signs: Last Vital Signs Pulse 87 07/08/23 15:23 BP 126/82 07/08/23 15:23 Pulse Ox 98 07/08/23 15:23 Oxygen Delivery Method Room Air 07/08/23 15:23 BMI result Body Mass Index 36.2 Tobacco/Smoking Status: Tobacco use Status Tobacco use date assessed 07/08/23 07/08/23 15:28 Patient Tobacco Use Status Current everyday Tobacco 07/08/23 15:28 e-Cigarette/Vaping Use Never Used 07/08/23 15:28 PHQ-9: PHQ-9 Score PHQ-9: Total score 0 07/08/23 15:43 Depression Screening Interpretation: Negative Thrive Assessment: Date of Thrive Assessment Date Thrive assessed 07/08/23 07/08/23 15:43 Currently or been in a relationship where the following occur: no concerns reported Const General: cooperative, comfortable and no acute distress Orientation/consciousness: patient oriented x3 HENMT Head: Yes normocephalic Eyes General: appearance normal, both eyes and all related structures Neck Neck: Yes supple Resp Effort & Inspection: normal respiratory effort, no cough and no stridor Cardio Rhythm: regular rhythm Heart sounds: S1 normal heart sound present and S2 normal heart sound present Skin General skin exam: turgor normal Neuro General: patient oriented x3, tone normal and moves all extremities Extrem Right lower extremity: no edema Left lower extremity: no edema Assessment and Plan Assessment & Plan (1) Essential hypertension: Code(s): I10 - Essential (primary) hypertension (2) Type 2 diabetes mellitus with hyperglycemia, with long-term current use of insulin: Code(s): E11.65 - Type 2 diabetes mellitus with hyperglycemia; Z79.4 - MCC (current) use of insulin (3) Asthma, moderate persistent: Code(s): J45.40 - Moderate persistent asthma, uncomplicated Qualifiers: Asthma complication type: uncomplicated Qualified Code(s): J45.40 - Moderate persistent asthma, uncomplicated (4) Lipid disorder: Code(s): E78.9 - Disorder of lipoprotein metabolism, unspecified (5) Chronic GERD: Code(s): K21.9 - Gastro-esophageal reflux disease without esophagitis (6) Schizophrenia: Code(s): F20.9 - Schizophrenia, unspecified Qualifiers: Schizophrenia type: paranoid schizophrenia Qualified Code(s): F20.0 - Paranoid schizophrenia (7) Tobacco abuse: Code(s): Z72.0 - Tobacco use (8) Depression, major, recurrent: Code(s): F33.9 - Major depressive disorder, recurrent, unspecified Qualifiers: Active/Remission status: in partial remission Qualified Code(s): F33.41 - Major depressive disorder, recurrent, in partial remission (9) Current use of insulin: Code(s): Z79.4 - long term care social worker (current) use of insulin (10) Anxiety, generalized: Code(s): F41.1 - Generalized anxiety disorder (11) Obesity due to excess calories: Code(s): E66.09 - Other obesity due to excess calories Qualifiers: Body mass index: BMI 45.0-49.9 Obesity classification: adult class 3 (BMI >= 40) Serious obesity comorbidity presence: with serious comorbidity Qualified Code(s): E66.01 - Morbid (severe) obesity due to excess calories; Z68.42 - Body mass index [BMI] 45.0-49.9, adult (12) Intellectual disability: Code(s): F79 - Unspecified intellectual disabilities Plan Patient is a 38-year-old male came in today for his follow-up appointment Patient was last seen December of last year He is due for labs, order placed Patient is currently on Toujeo 60 units, Trulicity 0.75 mg/week, Intolerant of metformin due to diarrhea His last hemoglobin A1c was well-controlled Asthma is stable patient is taking only albuterol inhaler as needed. Patient is also on montelukast. Hypertension: Patient is taking losartan 25 mg daily and metoprolol 50 mg b.i.d. blood pressure is well controlled Dyspepsia stable with omeprazole 40 mg, need refill Patient is also on simvastatin 80 mg for lipid control Patient have intellectual disability Patient have a history of schizophrenia, major depression and anxiety Currently taking medication through Psychiatry BMI is elevated, he is losing weight gradually Follow-up 3 months Orders: Orders Hemoglobin A1c Today E11.65 - Type 2 diabetes mellitus with hyperglycemia, E66.01 - Morbid (severe) obesity due to excess calories, E78.9 - Disorder of lipoprotein metabolism, unspecified, F20.0 - Paranoid schizophrenia, F33.41 - Major depressive disorder, recurrent, in partial remission, F41.1 - Generalized anxiety disorder, F79 - Unspecified intellectual disabilities, I10 - Essential (primary) hypertension, J45.40 - Moderate persistent asthma, uncomplicated, K21.9 - Gastro-esophageal reflux disease without esophagitis, Z68.42 - Body mass index [BMI] 45.0-49.9, adult, Z72.0 - Tobacco use, Z79.4 - MCC (current) use of 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 Panel Today E11.65 - Type 2 diabetes mellitus with hyperglycemia, E66.01 - Morbid (severe) obesity due to excess calories, E78.9 - Disorder of lipoprotein metabolism, unspecified, F20.0 - Paranoid schizophrenia, F33.41 - Major depressive disorder, recurrent, in partial remission, F41.1 - Generalized anxiety disorder, F79 - Unspecified intellectual disabilities, I10 - Essential (primary) hypertension, J45.40 - Moderate persistent asthma, uncomplicated, K21.9 - Gastro-esophageal reflux disease without esophagitis, Z68.42 - Body mass index [BMI] 45.0-49.9, adult, Z72.0 - Tobacco use, Z79.4 - long term care social worker (current) use of insulin LDL Cholesterol Direct Today E11.65 - Type 2 diabetes mellitus with hyperglycemia, E66.01 - Morbid (severe) obesity due to excess calories, E78.9 - Disorder of lipoprotein metabolism, unspecified, F20.0 - Paranoid schizophrenia, F33.41 - Major depressive disorder, recurrent, in partial remission, F41.1 - Generalized anxiety disorder, F79 - Unspecified intellectual disabilities, I10 - Essential (primary) hypertension, J45.40 - Moderate persistent asthma, uncomplicated, K21.9 - Gastro-esophageal reflux disease without esophagitis, Z68.42 - Body mass index [BMI] 45.0-49.9, adult, Z72.0 - Tobacco use, Z79.4 - long term care social worker (current) use of insulin Complete Blood Count Auto Diff Today E11.65 - Type 2 diabetes mellitus with hyperglycemia, E66.01 - Morbid (severe) obesity due to excess calories, E78.9 - Disorder of lipoprotein metabolism, unspecified, F20.0 - Paranoid schizophrenia, F33.41 - Major depressive disorder, recurrent, in partial remission, F41.1 - Generalized anxiety disorder, F79 - Unspecified intellectual disabilities, I10 - Essential (primary) hypertension, J45.40 - Moderate persistent asthma, uncomplicated, K21.9 - Gastro-esophageal reflux disease without esophagitis, Z68.42 - Body mass index [BMI] 45.0-49.9, adult, Z72.0 - Tobacco use, Z79.4 - MCC (current) use of insulin Microalbumin, Random (w Creat) Today E11.65 - Type 2 diabetes mellitus with hyperglycemia, E66.01 - Morbid (severe) obesity due to excess calories, E78.9 - Disorder of lipoprotein metabolism, unspecified, F20.0 - Paranoid schizophrenia, F33.41 - Major depressive disorder, recurrent, in partial remission, F41.1 - Generalized anxiety disorder, F79 - Unspecified intellectual disabilities, I10 - Essential (primary) hypertension, J45.40 - Moderate persistent asthma, uncomplicated, K21.9 - Gastro-esophageal reflux disease without esophagitis, Z68.42 - Body mass index [BMI] 45.0-49.9, adult, Z72.0 - Tobacco use, Z79.4 - MCC (current) use of insulin Medications: Refilled albuterol sulfate 90 mcg/actuation 2 puffs inhalation Q6H PRN 6.7 grams 4RF shortness of breath or wheezing 30 days Coding Level of Care Code Est Pt Level 4 (62943) Complex EM visit Add On G2211 Diagnoses Essential hypertension I10 Type 2 diabetes mellitus with hyperglycemia, with long-term current use of insulin E11.65; Z79.4 Moderate persistent asthma without complication J45.40 Asthma complication type: uncomplicated Lipid disorder E78.9 Chronic GERD K21.9 Paranoid schizophrenia F20.0 Schizophrenia type: paranoid schizophrenia Tobacco abuse Z72.0 Recurrent major depressive disorder, in partial remission F33.41 Active/Remission status: in partial remission Current use of insulin Z79.4 Anxiety, generalized F41.1 Class 3 severe obesity due to excess calories with serious comorbidity and body mass index (BMI) of 45.0 to 49.9 in adult E66.01; Z68.42 Body mass index: BMI 45.0-49.9 Obesity classification: adult class 3 (BMI >= 40) Serious obesity comorbidity presence: with serious comorbidity Intellectual disability F79 Additional Codes KOKI-7 Assessment Billing - KOKI-7 Assessment Tool: KOKI-7 Assessment [id number] ([id number])
[2023-07-08 15:23] VITALS: BP 126/82; PULSE 87; O2SAT 98; BMI 36.2
== END 2023-07-08 15:45 | disposition home or self-care (01) ==
PROVIDERS: PCP Internal Medicine; Visit Provider Internal Medicine
DX: E11.65 Type 2 diabetes mellitus with hyperglycemia (principal); Z79.4 Long term (current) use of insulin; F20.0 Paranoid schizophrenia; F33.41 Major depressive disorder, recurrent, in partial remission; E66.01 Morbid (severe) obesity due to excess calories; Z68.42 Body mass index [BMI] 45.0-49.9, adult; I10 Essential (primary) hypertension; J45.40 Moderate persistent asthma, uncomplicated; E78.9 Disorder of lipoprotein metabolism, unspecified; K21.9 Gastro-esophageal reflux disease without esophagitis; Z72.0 Tobacco use; F41.1 Generalized anxiety disorder
CPT/HCPCS: 99214; G2211

== ENCOUNTER 2023-11-28 09:25 | Outpatient (AMB) | payer MEDICARE, MEDICAID, SELFPAY ==
--- NOTE | 2023-11-28 09:32 | MHC.PC.OV ---
Vital Signs 11/28/23 09:34 Height 5 ft 9 in Weight 240 lb 6 oz BMI 35.5 BP 124/76 Blood Pressure Location Rt brachial Position Sitting Pulse 80 Pulse Source Pulse Oximeter Pulse Oximetry (%) 98 Oxygen Delivery Method Room Air Intake Visit Reasons: Meds follow up Allergies iodine [IODINE] Allergy (Unknown, Verified 11/28/23 09:42) RASH, unknown Environmental Allergy (Unknown, Uncoded 01/08/23 14:13) Unknown Loverisol Allergy (Unknown, Uncoded 01/08/23 14:13) unknown SEASONAL ALLERGIES Allergy (Unknown, Uncoded 01/08/23 14:13) ASTHMA Medication List - Last Reconciled 11/28/23 by Manav Jones MD albuterol sulfate 90 mcg/actuation (ProAir HFA) 2 puffs inhalation Q4H PRN albuterol sulfate 90 mcg/actuation 2 puffs inhalation Q6H PRN 30 days alcohol swabs (Alcohol Prep Pads) 2 pad topical BID 90 days blood sugar diagnostic (Bourbon & BootsTouch Ultra Test strips) 4x daily blood-glucose meter (Bourbon & BootsTouch Ultra2 Meter kit) As directed bupropion HCl XL 150 mg PO QAM divalproex 500 mg PO BID dulaglutide (Trulicity) 0.75 mg (0.5 mL) subcut QWEEK hydroxyzine HCl 25 mg PO QID insulin glargine U-300 conc (Toujeo Max U-300 SoloStar) 60 units (0.2 mL) subcut DAILY lancets 4x daily lancets (FreeStyle Lancets) As directed 3 times a day loratadine 10 mg PO DAILY losartan 25 mg PO QAM melatonin 6 mg PO BEDTIME metoprolol tartrate 50 mg PO BID montelukast 10 mg PO BEDTIME omeprazole 40 mg PO DAILY pen needle, diabetic (Comfort EZ Pen [place]) USE DIRECTED ONCE DAILY risperidone 3 mg PO simvastatin 80 mg PO BEDTIME 90 days topiramate 200 mg PO BID Tobacco use date assessed: 11/28/23 Dental Screening Dental Screen Date: 11/28/23 Did you have a dental visit in the last 12 months?: Yes Did you have a dental problem in the last 6 months where you did not have access to dental care?: No Was dental information given to patient?: Patient has dentist HPI Meds follow up HPI Details Patient is a 38-year-old male came in today for his follow-up appointment Patient has become noncompliant with her office visits Last time seen was June of this year He also has not done any labs since last year Patient is currently on Toujeo 60 units, Trulicity 0.75 mg/week, Intolerant of metformin due to diarrhea Due for hemoglobin check Asthma is stable patient is taking Symbicort 2 puffs b.i.d.. Patient is also on montelukast. Hypertension: Patient is taking losartan 25 mg daily and metoprolol 50 mg b.i.d. blood pressure is well controlled Dyspepsia stable with omeprazole 40 mg, need refill Patient is also on simvastatin 80 mg for lipid control Patient have intellectual disability have a history of schizophrenia, major depression and anxiety Currently taking medication through Psychiatry BMI is elevated, he is losing weight gradually Follow-up 3 months [facility] Medical History DM2 (diabetes mellitus, type 2) Bipolar disorder Obesity due to excess calories Hyperlipidemia LDL goal <100 Essential hypertension Type 2 diabetes mellitus with hyperglycemia, with long-term current use of insulin Sleep apnea Tobacco abuse Suicide attempt by multiple drug overdose History of alcohol abuse Schizophrenia Lipid disorder Chronic GERD Asthma Anxiety, generalized Depression, major, recurrent Current use of insulin Surgical History History of foot surgery History of surgery Family History Father No problems noted. Mother Breast cancer Diabetes Mental health disorder Paternal Aunt Diabetes Social History Household Members: None Housing: Apartment Alcohol intake: former Patient Tobacco Use Status: Current everyday Tobacco user Cigarette Packs Per Day: 0.5 e-Cigarette/Vaping Use: Never Used Substance Use Type: Marijuana Current occupational status: unemployed Cognitive needs: No Hearing needs: No Vision needs: No Questionnaire PHQ-9 Over the last 2 weeks, how often have you been bothered by any of the following problems? 1. Little interest or pleasure in doing things: not at all 2. Feeling down, depressed, or hopeless: not at all 3. Trouble falling or staying asleep, or sleeping too much: not at all 4. Feeling tired or having little energy: not at all 5. Poor appetite or overeating: not at all 6. Feeling bad about yourself - or that you are a failure or have let yourself or your family down: not at all 7. Trouble concentrating on things, such as reading the newspaper or watching television: nearly every day 8. Moving or speaking so slowly that other people could have noticed. Or the opposite - being so fidgety or restless that you have been moving around a lot more than usual: not at all 9. Thoughts that you would be better off or of hurting yourself in some way: not at all Total score: 3 Depression Screening Interpretation: Negative Depression Screening Done: Yes 25389 - PHQ-9 Billing: Yes Source: Developed by Drs. Gianfranco Cardoso, Cait Centeno, Mark Montano and colleagues, with an educational janice from [employer]. Thrive Questionnaire Date Thrive assessed: 11/28/23 I am a: Patient What is your living situation today?: I do not have a steady places to live I am temporarily staying with others Within the past 12 months, did the food you bought not last and you didn't have the money to get more?: Often true Within the past 12 months, did you worry whether your food would run out before you got money to buy more?: Often true Do you have trouble paying for medicines?: Yes Do you have trouble getting transportation to medical appointments?: Yes Do you have trouble paying your heating and electricity bill?: Yes Do you have trouble taking care of your child, family member or friend?: Yes Do you have trouble with day-to-day activities such as bathing, preparing meals, shopping, managing finances, etc.?: I choose not to answer this question Are you interested in more education?: I choose not to answer this question Please select the resources that you would like help with: Housing/Senior Care, Food, Paying for medicine, Transportation, Utilities, Daily support and Job search/training Currently or been in a relationship where the following occur: I choose not to answer THRIVE Score: 5 AUDIT C Alcohol Use Questionnaire (AUDIT-C) 1. How often do you have a drink containing alcohol?: 2-4 times a month 2. How many drinks containing alcohol do you have on a typical day when you are drinking?: 3 or 4 3. How often do you have six or more drinks on one occasion?: Less than monthly Total Score: 4 Score Reviewed/Action Taken: Yes KOKI-7 AMB Questionnaire KOKI-7 Date KOKI - 7 assessed: 07/08/23 Feeling nervous, anxious, or on edge: 2 = More than half the days Not being able to stop or control worryin = Several days Worrying too much about different things: 1 = Several days Trouble relaxin = Several days Being so restless that it is hard to sit still: 1 = Several days Becoming easily annoyed or irritable: 1 = Several days Feeling afraid as if something awful might happen: 0 = Not at all Total KOKI-7 score (0-4 normal; 5-9 mild; 10-14 moderate; 15-21 severe): 7 Source: Developed by Drs. Gianfranco Cardoso, Cait Centeno, Mark Montano and colleagues, with an educational janice from [employer]. KOKI-7 Assessment Billing KOKI-7 Assessment Tool: KOKI-7 Assessment 74133 Review of Systems Const Denies chills and Denies fever(s) ENT Denies epistaxis and Denies nasal discharge Card Denies chest pain Resp Denies chest congestion, Denies cough and Denies hemoptysis GI Denies diarrhea and Denies nausea Skin/Breast Denies rash Neuro Reports no additional complaints Psych Reports no additional complaints Endo Reports no additional complaints Physical exam (Primary Care) Vital Signs: Last Vital Signs Pulse 80 11/28/23 09:34 BP 124/76 11/28/23 09:34 Pulse Ox 98 11/28/23 09:34 Oxygen Delivery Method Room Air 11/28/23 09:34 BMI result Body Mass Index 35.5 Tobacco/Smoking Status: Tobacco use Status Tobacco use date assessed 11/28/23 11/28/23 09:43 Patient Tobacco Use Status Current everyday Tobacco 11/28/23 09:33 e-Cigarette/Vaping Use Never Used 11/28/23 09:33 PHQ-9: PHQ-9 Score PHQ-9: Total score 3 11/28/23 09:51 Depression Screening Interpretation: Negative Thrive Assessment: Date of Thrive Assessment Date Thrive assessed 11/28/23 11/28/23 09:43 Currently or been in a relationship where the following occur: I choose not to answer Const General: cooperative, comfortable and no acute distress Orientation/consciousness: patient oriented x3 HENMT Head: Yes normocephalic Eyes General: appearance normal, both eyes and all related structures Neck Neck: Yes supple Resp Effort & Inspection: normal respiratory effort, no cough and no stridor Cardio Rhythm: regular rhythm Heart sounds: S1 normal heart sound present and S2 normal heart sound present Skin General skin exam: turgor normal Neuro General: patient oriented x3, tone normal and moves all extremities Extrem Right lower extremity: no edema Left lower extremity: no edema Coding Level of Care Code Est Pt Level 4 (39460) Complex EM visit Add On G2211 Diagnoses Type 2 diabetes mellitus with hyperglycemia, with long-term current use of insulin E11.65; Z79.4 Essential hypertension I10 Class 3 severe obesity due to excess calories with serious comorbidity and body mass index (BMI) of 45.0 to 49.9 in adult E66.01; Z68.42 Body mass index: BMI 45.0-49.9 Obesity classification: adult class 3 (BMI >= 40) Serious obesity comorbidity presence: with serious comorbidity Tobacco abuse Z72.0 Paranoid schizophrenia F20.0 Schizophrenia type: paranoid schizophrenia Lipid disorder E78.9 Chronic GERD K21.9 Anxiety, generalized F41.1 Recurrent major depressive disorder, in partial remission F33.41 Active/Remission status: in partial remission Moderate persistent asthma without complication J45.40 Asthma complication type: uncomplicated Intellectual disability F79 Additional Codes KOKI-7 Assessment Billing - KOKI-7 Assessment Tool: KOKI-7 Assessment 44755 ([id number]) Assessment & Plan Assessment & Plan (1) Type 2 diabetes mellitus with hyperglycemia, with long-term current use of insulin: Code(s): E11.65 - Type 2 diabetes mellitus with hyperglycemia; Z79.4 - extermination supervisor (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) use of insulin Category: Medical (2) Essential hypertension: Code(s): I10 - Essential (primary) hypertension Category: Medical (3) Obesity due to excess calories: Code(s): E66.09 - Other obesity due to excess calories Category: Medical Qualifiers: Body mass index: BMI 45.0-49.9 Obesity classification: adult class 3 (BMI >= 40) Serious obesity comorbidity presence: with serious comorbidity Qualified Code(s): E66.01 - Morbid (severe) obesity due to excess calories; Z68.42 - Body mass index [BMI] 45.0-49.9, adult (4) Tobacco abuse: Code(s): Z72.0 - Tobacco use Category: Medical (5) Schizophrenia: Code(s): F20.9 - Schizophrenia, unspecified Category: Medical Qualifiers: Schizophrenia type: paranoid schizophrenia Qualified Code(s): F20.0 - Paranoid schizophrenia (6) Lipid disorder: Code(s): E78.9 - Disorder of lipoprotein metabolism, unspecified Category: Medical (7) Chronic GERD: Code(s): K21.9 - Gastro-esophageal reflux disease without esophagitis Category: Medical (8) Anxiety, generalized: Code(s): F41.1 - Generalized anxiety disorder Category: Medical (9) Depression, major, recurrent: Code(s): F33.9 - Major depressive disorder, recurrent, unspecified Category: Medical Qualifiers: Active/Remission status: in partial remission Qualified Code(s): F33.41 - Major depressive disorder, recurrent, in partial remission (10) Asthma, moderate persistent: Code(s): J45.40 - Moderate persistent asthma, uncomplicated Category: Medical Qualifiers: Asthma complication type: uncomplicated Qualified Code(s): J45.40 - Moderate persistent asthma, uncomplicated (11) Intellectual disability: Code(s): F79 - Unspecified intellectual disabilities Category: Medical Plan Patient is a 38-year-old male came in today for his follow-up appointment Patient has become noncompliant with her office visits Last time seen was June of this year He also has not done any labs since last year Patient is currently on Toujeo 60 units, Trulicity 0.75 mg/week, Intolerant of metformin due to diarrhea Due for hemoglobin check Asthma is stable patient is taking Symbicort 2 puffs b.i.d.. Patient is also on montelukast. Hypertension: Patient is taking losartan 25 mg daily and metoprolol 50 mg b.i.d. blood pressure is well controlled Dyspepsia stable with omeprazole 40 mg, need refill Patient is also on simvastatin 80 mg for lipid control Patient have intellectual disability have a history of schizophrenia, major depression and anxiety Currently taking medication through Psychiatry BMI is elevated, he is losing weight gradually Follow-up 3 months Medications: New omeprazole 40 mg PO DAILY 90 caps 0RF Refilled insulin glargine U-300 conc (Toujeo Max U-300 SoloStar) 60 units (0.2 mL) subcut DAILY 24 mL 1RF E11.65 - Type 2 diabetes mellitus with hyperglycemia, Z79.4 - long-term (current) use of insulin loratadine 10 mg PO DAILY 90 tabs 2RF losartan 25 mg PO QAM 90 tabs 0RF metoprolol tartrate 50 mg PO BID 180 tabs 2RF dulaglutide (Trulicity) 0.75 mg (0.5 mL) subcut QWEEK 6 mL 1RF E11.65 - Type 2 diabetes mellitus with hyperglycemia montelukast 10 mg PO BEDTIME 90 tabs 2RF simvastatin 80 mg PO BEDTIME 90 tabs 0RF 90 days E78.9 - Disorder of lipoprotein metabolism, unspecified
[2023-11-28 09:34] VITALS: BP 124/76; PULSE 80; O2SAT 98; BMI 35.5
== END 2023-11-28 09:50 | disposition home or self-care (01) ==
PROVIDERS: PCP Internal Medicine; Visit Provider Internal Medicine
DX: E11.65 Type 2 diabetes mellitus with hyperglycemia (principal); Z79.4 Long term (current) use of insulin; E66.813 Obesity, class 3; Z68.42 Body mass index [BMI] 45.0-49.9, adult; F20.0 Paranoid schizophrenia; F33.41 Major depressive disorder, recurrent, in partial remission; I10 Essential (primary) hypertension; Z72.0 Tobacco use; E78.9 Disorder of lipoprotein metabolism, unspecified; K21.9 Gastro-esophageal reflux disease without esophagitis; F41.1 Generalized anxiety disorder; J45.40 Moderate persistent asthma, uncomplicated

== ENCOUNTER → 2023-11-28 09:25 | Outpatient (BNVA) | payer MEDICARE, MEDICAID, SELFPAY | PROVIDERS: PCP Internal Medicine; Visit Provider Internal Medicine | DX: E11.65 Type 2 diabetes mellitus with hyperglycemia (principal); Z79.4 Long term (current) use of insulin; I10 Essential (primary) hypertension; E66.01 Morbid (severe) obesity due to excess calories; Z68.42 Body mass index [BMI] 45.0-49.9, adult; F20.0 Paranoid schizophrenia; K21.9 Gastro-esophageal reflux disease without esophagitis; F41.1 Generalized anxiety disorder; F33.41 Major depressive disorder, recurrent, in partial remission; Z72.0 Tobacco use | CPT/HCPCS: 96127; 99212 ==

== ENCOUNTER 2023-11-28 09:51 | Outpatient (REF) | payer MEDICARE, MEDICAID, SELFPAY ==
[2023-11-28 13:06] LABS: MANUAL DIFF FLAG NO
[2023-11-28 13:10] LABS: Basophils Percent Auto 0.5 % (0-2); Eosinophils Absolute Auto 0.1 X10*3/uL (0.0-0.4); Eosinophils Percent Auto 1.5 % (0-4); Hematocrit 37.3 % (42.0-52.0); Hemoglobin 11.2 g/dl (14.0-18.0); Imm Gran Abs Auto 0.02 X10*3/uL (0.00-0.03); Imm Gran Pct Auto 0.3 % (0.0-0.4); Lymphocytes Absolute Auto 2.7 X10*3/uL (1.2-4.9); Lymphocytes Percent Auto 45.1 % (20-40); Mean Corpuscular Volume 73.4 fL (80.0-98.0); Mean Platelet Volume 9.6 fL (9.4-12.4); Monocytes Absolute Auto 0.6 X10*3/uL (0.1-1.2); Monocytes Percent Auto 10.5 % (2-11); Neutrophils Absolute Auto 2.6 x10*3/uL (2.0-8.3); Neutrophils Percent Auto 42.1 % (45-73); Platelet Count 247 X10*3/uL (160-400); Red Blood Count 5.08 X10*6/uL (4.60-5.80); Red Cell Distribution Width 19.9 % (11.0-16.0); White Blood Count 6.1 X10*3/uL (4.8-10.8)
[2023-11-28 13:33] LABS: Estimated Average Glucose 111 mg/dL; Hemoglobin A1C 105.6682 umol/L; Hemoglobin A1c % 5.5 % (<6.0); Total Hemoglobin (HGBA1C) 2852.3457 umol/L
[2023-11-28 13:51] LABS: Alanine Aminotransferase 14 U/L (0-40); Albumin Level 4.2 g/dL (3.5-5.0); Alkaline Phosphatase 61 U/L (39-117); Anion Gap 10 (12-20); Aspartate Amino Transferase 10 U/L (5-37); Bilirubin Total 0.2 mg/dL (0.0-1.0); Blood Urea Nitrogen 11 mg/dL (9-16); Calcium 9.6 mg/dL (8.4-10.2); Carbon Dioxide 25 mmol/L (22-29); Chloride 108 mmol/L (96-108); Estimated Glomerular Filt Rate > 60; Glucose Random 121 mg/dL (60-115); Sodium 139 mmol/L (135-145); Total Protein 7.4 g/dL (6.5-8.0)
[2023-11-28 14:16] LABS: Creatinine Urine 106.57 mg/dL; Microalbum/Creatinine Ratio Ur 7.5 ug/mg cr (<30)
[2023-12-01 14:43] LABS: LDL Cholesterol Direct 109 mg/dL (<100)
== END 2023-11-28 09:52 | disposition home or self-care (01) ==
LOC: HO.HMGCLDS 09:51
PROVIDERS: PCP Internal Medicine; Visit Provider Internal Medicine
DX: E78.9 Disorder of lipoprotein metabolism, unspecified (principal); K21.9 Gastro-esophageal reflux disease without esophagitis; F20.0 Paranoid schizophrenia; Z72.0 Tobacco use; F33.41 Major depressive disorder, recurrent, in partial remission; Z79.4 Long term (current) use of insulin; F41.1 Generalized anxiety disorder; I10 Essential (primary) hypertension; E66.01 Morbid (severe) obesity due to excess calories; Z68.42 Body mass index [BMI] 45.0-49.9, adult; E11.65 Type 2 diabetes mellitus with hyperglycemia; J45.40 Moderate persistent asthma, uncomplicated; F79 Unspecified intellectual disabilities
CPT/HCPCS: 36415; 80053; 82043; 82570; 83036; 83721; 85025

== ENCOUNTER 2024-03-12 11:49 | Outpatient (REF) | payer MEDICARE, MEDICAID, SELFPAY ==
[2024-03-12 16:05] LABS: MANUAL DIFF FLAG NO
[2024-03-12 16:11] LABS: Basophils Percent Auto 0.6 % (0-2); Eosinophils Absolute Auto 0.1 X10*3/uL (0.0-0.4); Eosinophils Percent Auto 2.1 % (0-4); Hematocrit 38.1 % (42.0-52.0); Hemoglobin 11.8 g/dl (14.0-18.0); Imm Gran Abs Auto 0.02 X10*3/uL (0.00-0.03); Imm Gran Pct Auto 0.3 % (0.0-0.4); Lymphocytes Absolute Auto 2.3 X10*3/uL (1.2-4.9); Lymphocytes Percent Auto 36.8 % (20-40); Mean Corpuscular Hemoglobin 23.1 pg (27.0-33.0); Mean Corpuscular Volume 74.7 fL (80.0-98.0); Mean Platelet Volume 9.9 fL (9.4-12.4); Monocytes Absolute Auto 0.7 X10*3/uL (0.1-1.2); Monocytes Percent Auto 10.8 % (2-11); Neutrophils Absolute Auto 3.1 x10*3/uL (2.0-8.3); Neutrophils Percent Auto 49.4 % (45-73); Platelet Count 245 X10*3/uL (160-400); Red Cell Distribution Width 19.9 % (11.0-16.0); White Blood Count 6.3 X10*3/uL (4.8-10.8)
[2024-03-12 16:40] LABS: Estimated Average Glucose 120 mg/dL; Hemoglobin A1C 124.0862 umol/L; Hemoglobin A1c % 5.8 % (<6.0); Total Hemoglobin (HGBA1C) 3115.3301 umol/L
[2024-03-12 16:48] LABS: Creatinine Urine 176.17 mg/dL; Microalbum/Creatinine Ratio Ur 4.5 ug/mg cr (<30)
[2024-03-12 17:10] LABS: Alanine Aminotransferase 34 U/L (0-40); Albumin Level 4.1 g/dL (3.5-5.0); Alkaline Phosphatase 56 U/L (39-117); Anion Gap 9 (12-20); Aspartate Amino Transferase 22 U/L (5-37); Bilirubin Total 0.2 mg/dL (0.0-1.0); Blood Urea Nitrogen 10 mg/dL (9-16); Calcium 9.2 mg/dL (8.4-10.2); Carbon Dioxide 24 mmol/L (22-29); Chloride 112 mmol/L (96-108); Estimated Glomerular Filt Rate > 60; Glucose Random 95 mg/dL (60-115); Potassium 4.1 mmol/L (3.3-5.1); Sodium 141 mmol/L (135-145); TSH reflex Free T4 1.17 uIU/mL (0.32-4.0); Total Protein 7.6 g/dL (6.5-8.0)
[2024-03-15 05:19] LABS: LDL Cholesterol Direct 81 mg/dL (<100)
== END 2024-03-12 11:50 | disposition home or self-care (01) ==
LOC: HO.HMGCLDS 11:49
PROVIDERS: PCP Internal Medicine; Visit Provider Internal Medicine
DX: Z00.00 Encounter for general adult medical examination without abnormal findings (principal); E10.69 Type 1 diabetes mellitus with other specified complication; E66.01 Morbid (severe) obesity due to excess calories; F79 Unspecified intellectual disabilities; J45.40 Moderate persistent asthma, uncomplicated; I10 Essential (primary) hypertension; F20.0 Paranoid schizophrenia; E78.9 Disorder of lipoprotein metabolism, unspecified; K21.9 Gastro-esophageal reflux disease without esophagitis; F41.1 Generalized anxiety disorder; F33.41 Major depressive disorder, recurrent, in partial remission; J06.9 Acute upper respiratory infection, unspecified; Z72.0 Tobacco use; Z79.4 Long term (current) use of insulin
CPT/HCPCS: 36415; 80053; 82043; 82570; 83036; 83721; 84443; 85025; 96127; 99212

== ENCOUNTER 2024-03-12 11:49 | Outpatient (AMB) | payer MEDICARE, MEDICAID, SELFPAY ==
--- NOTE | 2024-03-12 11:56 | A.OFFPC_ITS ---
Vital Signs 03/12/24 11:57 Height 5 ft 9 in Intake Visit Reasons: AWV Allergies iodine [IODINE] Allergy (Unknown, Verified 03/12/24 11:57) RASH, unknown Environmental Allergy (Unknown, Uncoded 01/08/23 14:13) Unknown Loverisol Allergy (Unknown, Uncoded 01/08/23 14:13) unknown SEASONAL ALLERGIES Allergy (Unknown, Uncoded 01/08/23 14:13) ASTHMA Tobacco use date assessed: 03/12/24 Dental Screening Dental Screen Date: 03/12/24 [facility] Medical History DM2 (diabetes mellitus, type 2) Bipolar disorder Obesity due to excess calories Hyperlipidemia LDL goal <100 Essential hypertension Type 2 diabetes mellitus with hyperglycemia, with long-term current use of insulin Sleep apnea Tobacco abuse Suicide attempt by multiple drug overdose History of alcohol abuse Schizophrenia Lipid disorder Chronic GERD Asthma Anxiety, generalized Depression, major, recurrent Current use of insulin Surgical History History of foot surgery History of surgery Family History Father No problems noted. Mother Breast cancer Diabetes Mental health disorder Paternal Aunt Diabetes Social History Household Members: None Housing: Apartment Alcohol intake: former Patient Tobacco Use Status: Current everyday Tobacco user Cigarette Packs Per Day: 0.5 e-Cigarette/Vaping Use: Never Used Substance Use Type: Marijuana Current occupational status: unemployed Cognitive needs: No Hearing needs: No Vision needs: No Questionnaire PHQ-9 Over the last 2 weeks, how often have you been bothered by any of the following problems? 1. Little interest or pleasure in doing things: not at all 2. Feeling down, depressed, or hopeless: not at all 3. Trouble falling or staying asleep, or sleeping too much: not at all 4. Feeling tired or having little energy: not at all 5. Poor appetite or overeating: several days 6. Feeling bad about yourself - or that you are a failure or have let yourself or your family down: not at all 7. Trouble concentrating on things, such as reading the newspaper or watching television: nearly every day 8. Moving or speaking so slowly that other people could have noticed. Or the opposite - being so fidgety or restless that you have been moving around a lot more than usual: not at all 9. Thoughts that you would be better off or of hurting yourself in some way: not at all Total score: 4 Source: Developed by Drs. Gianfranco Cardoso, Cait Centeno, Mark Montano and colleagues, with an educational janice from [employer]. Thrive Questionnaire Date Thrive assessed: 03/12/24 KOKI-7 AMB Questionnaire KOKI-7 Date KOKI - 7 assessed: 07/08/23 Source: Developed by Drs. Gianfranco Cardoso, Cait Centeno, Mark Montano and colleagues, with an educational janice from [employer]. Physical exam (Primary Care) Tobacco/Smoking Status: Tobacco use Status Tobacco use date assessed 11/28/23 11/28/23 09:43 Patient Tobacco Use Status Current everyday Tobacco 11/28/23 09:33 e-Cigarette/Vaping Use Never Used 11/28/23 09:33 Thrive Assessment: Date of Thrive Assessment Date Thrive assessed 03/12/24 03/12/24 11:50 Coding
[2024-03-12 11:57] VITALS: BP 122/74; PULSE 86; O2SAT 98; BMI 39.1
--- NOTE | 2024-03-12 12:07 | A.OFFVIS_ITS ---
Intake Vital Signs 03/12/24 11:57 Height 5 ft 9 in Weight 265 lb 2 oz BMI 39.1 BP 122/74 Blood Pressure Location Lt brachial Position Sitting Pulse 86 Pulse Source Pulse Oximeter Pulse Oximetry (%) 98 Oxygen Delivery Method Room Air Intake Visit Reasons: AWV Allergies iodine [IODINE] Allergy (Unknown, Verified 03/12/24 11:57) RASH, unknown Environmental Allergy (Unknown, Uncoded 01/08/23 14:13) Unknown Loverisol Allergy (Unknown, Uncoded 01/08/23 14:13) unknown SEASONAL ALLERGIES Allergy (Unknown, Uncoded 01/08/23 14:13) ASTHMA Medication List - Last Reconciled 03/12/24 by Manav Jones MD albuterol sulfate 90 mcg/actuation (ProAir HFA) 2 puffs inhalation Q4H PRN albuterol sulfate 90 mcg/actuation 2 puffs inhalation Q6H PRN 30 days alcohol swabs (Alcohol Prep Pads) 2 pad topical BID 90 days blood sugar diagnostic ([place] LithotripsyTouch Ultra Test strips) 4x daily blood-glucose meter ([employer] Ultra2 Meter kit) As directed bupropion HCl XL 150 mg PO QAM divalproex 500 mg PO BID dulaglutide (Trulicity) 0.75 mg (0.5 mL) subcut QWEEK hydroxyzine HCl 25 mg PO QID insulin glargine U-300 conc (Toujeo Max U-300 SoloStar) 60 units (0.2 mL) subcut DAILY lancets 4x daily lancets (FreeStyle Lancets) As directed 3 times a day loratadine 10 mg PO DAILY losartan 25 mg PO QAM melatonin 6 mg PO BEDTIME metoprolol tartrate 50 mg PO BID montelukast 10 mg PO BEDTIME omeprazole 40 mg PO DAILY pen needle, diabetic (Comfort EZ Pen [place]) USE DIRECTED ONCE DAILY risperidone 3 mg PO simvastatin 80 mg PO BEDTIME 90 days topiramate 200 mg PO BID HPI AWV HPI Details Health Maintenance - Recommendation for annual eye examinat ion was discussed. - Instruction to obtain a blood test as part of routine health evaluation, as it was last performed approximately four months ago. Assessment and Plan 38-year-old male with a history of diabe lety mellitus, major depression, anxiety, allergies, hypertension chronic GERD, obesity, lipid disorder psychiatric disorder Established with Psychiatry presenting with acute cough of approximately two weeks duration, without accompanying fever or chills. The cough severity is considerable, and despite the use of DayQuil, symptoms persist. Lung auscultation reveals clear breath sounds. Routine health maintenance is also addressed with instructions for a blood test and a recommendation for an annual eye examination. 2. Acute Cough Persistent cough over two weeks with clear lung sounds upon examination. Prescribed medication to be taken once in the morning and once at night to alleviate symptoms. Monitor response to treatment. 3. Eye Examination Recommended an annual eye exam, with arrangements for scheduling an appointment for the patient. [facility] The patient resides with his sister, who may assist with health appointments and care arrangements. HPI Comments History of Present Illness Details AWV medical/social history reviewed Past medical history reviewed [facility] / care team list updated Surgical/ hospitalization history reviewed Current medications including OTC and supplements reviewed Family history reviewed Tobacco controlled form updated Alcohol use form updated Illicit drug use in social history reviewed Current diagnosis of depression screening updated Appropriate PHQ 2/PHQ-9 completed MMSE completed . Fall risk: Assessed Fall history: None Have you had any falls with injury in the past year? No Have you had 2 or more falls in the past year? No Fall risk assessment completed HRA filled out by the patient reviewed by provider and scanned . Examination IPPE/AWE: Balance intact Romberg intact Tandem walk intact walk-in turn intact rise from sit to stand intact . Hearing whisper test pass Medication list reviewed, patient is stable on medications All other providers patient is seeing discussed and noted PPP handed to patient [facility] Medical History DM2 (diabetes mellitus, type 2) Bipolar disorder Obesity due to excess calories Hyperlipidemia LDL goal <100 Essential hypertension Type 2 diabetes mellitus with hyperglycemia, with long-term current use of insulin Sleep apnea Tobacco abuse Suicide attempt by multiple drug overdose History of alcohol abuse Schizophrenia Lipid disorder Chronic GERD Asthma Anxiety, generalized Depression, major, recurrent Current use of insulin Surgical History History of foot surgery History of surgery Family History Father No problems noted. Mother Breast cancer Diabetes Mental health disorder Paternal Aunt Diabetes Social History Household Members: None Housing: Apartment Alcohol intake: former Patient Tobacco Use Status: Current everyday Tobacco user Cigarette Packs Per Day: 0.5 e-Cigarette/Vaping Use: Never Used Substance Use Type: Marijuana Current occupational status: unemployed Cognitive needs: No Hearing needs: No Vision needs: No Questionnaire Medicare Wellness Checkup What gender do you identify with?: male During the past 4 weeks, how much have you been bothered by emotional problems such as feeling anxious, depressed, irritable, sad or downhearted, and blue?: moderately During the past 4 weeks, has your physical & emotional health limited your social activities with family, friends, neighbors, or groups?: not at all During the past 4 weeks, how much bodily pain have you generally had?: no pain During the past 4 weeks, was someone available to help you if you needed & wanted help?: yes, quite a bit During the past 4 weeks, what was the hardest physical activity you could do for at least 2 minutes?: very light Can you get to places out of walking distance without help? (For eg., can you travel alone on buses, taxis or drive your car?): Yes Can you go shopping for groceries or clothes without someone's help?: Yes Can you prepare your own meals?: Yes Can you do your housework without help?: No Because of any health problems, do you need the help of another person with your personal care needs such as eating, bathing, dressing or getting around the house?: No Can you handle your own money without help?: No During the past 4 weeks, how would you rate your health in general?: poor During the past 4 weeks how have things been going for you?: good & bad parts about equal Are you having difficulties driving your car?: not applicable, I don't use a car Do you always fasten your seat belt when you are in a car?: no During past 4 weeks, have you been bothered by the following: never: Falling or dizzy when standing up, Trouble eating well? and Teeth or denture problems?, seldom: Sexual problems? and Tiredness or fatigue? and sometimes: Problems using the telephone? Have you fallen 2 or more times in the past year?: No Are you afraid of falling?: No Are you a smoker?: yes, but I'm not ready to quit During the past 4 weeks, how many drinks of wine, beer, or other alcoholic beverages did you have?: 1 drink or less per week Do you exercise for about 20 minutes 3 or more times a week?: no, I usually do not exercise this much Have you been given information to help with the following?: yes: Hazards in your house that might hurt you? and yes: Keeping track of your medications? How often do you have trouble taking medicines the way you have been told to take them?: sometimes I take medicine as prescribed How confident are you that you can control & manage most of your health problems?: not very confident What is your race?: or origin or descent Mini Mental State Exam (MMSE) Orientation What is the (year) (season) (date) (day) (month)?: year, season, date, day and month Where are we (state) (county) (town or city) (hospital) (floor)?: state, county, town or city, hospital/clinic and floor Score Score: 10 Activity of Daily Living Bathing - sponge bath, tub bath or shower: receives no assistance (gets in/out by self, if usual bathing means Dressing - getting clothes from closets & drawers, including inner/outer garments & fasteners.: gets clothes & gets completely dressed without help Toileting - going to the 'toilet room' for urine/bowel elimination & cleaning self/arranging clothes: goes to toilet room, cleans self, arranges clothes without help Transfer: moves in & out of bed and chair without help (may use support object) Continence: controls urination/bowel movements completely by self Feeding: feeds self without help Total Score: 0 Information obtained from: patient Using telephone: independent Traveling: needs assistance Shopping: needs assistance Preparing meals: needs assistance Housework: needs assistance Taking medicine: needs assistance Managing money: dependent PHQ-9 Over the last 2 weeks, how often have you been bothered by any of the following problems? 1. Little interest or pleasure in doing things: not at all 2. Feeling down, depressed, or hopeless: not at all 3. Trouble falling or staying asleep, or sleeping too much: not at all 4. Feeling tired or having little energy: not at all 5. Poor appetite or overeating: several days 6. Feeling bad about yourself - or that you are a failure or have let yourself or your family down: not at all 7. Trouble concentrating on things, such as reading the newspaper or watching television: nearly every day 8. Moving or speaking so slowly that other people could have noticed. Or the opposite - being so fidgety or restless that you have been moving around a lot more than usual: not at all 9. Thoughts that you would be better off or of hurting yourself in some way: not at all Total score: 4 Depression Screening Interpretation: Negative Depression Screening Done: Yes 68377 - PHQ-9 Billing: Yes Source: Developed by Drs. Gianfranco Cardoso, Cait Centeno, Mark Montano and colleagues, with an educational janice from [employer]. Review of Systems Const Denies chills and Denies fever(s) ENT Denies epistaxis and Denies nasal discharge Card Denies chest pain Resp Denies chest congestion and Denies hemoptysis GI Denies diarrhea and Denies nausea Skin/Breast Denies rash Neuro Reports no additional complaints Psych Reports no additional complaints Endo Reports no additional complaints Physical Exam Vital Signs: Last Vital Signs Pulse 86 03/12/24 11:57 BP 122/74 03/12/24 11:57 Pulse Ox 98 03/12/24 11:57 Oxygen Delivery Method Room Air 03/12/24 11:57 BMI result Body Mass Index 39.1 Const General: cooperative, comfortable and no acute distress Orientation/consciousness: patient oriented x3 HEENT Head: Yes normocephalic Eyes General: appearance normal, both eyes and all related structures Neck Other: Supple Neck: Yes supple Resp Effort & Inspection: normal respiratory effort, no cough and no stridor Cardio Rhythm: regular rhythm Heart sounds: S1 normal heart sound present and S2 normal heart sound present Skin General skin exam: turgor normal Neuro Other: Motor sensory intact General: patient oriented x3, tone normal and moves all extremities Extrem Other: No lower extremity swelling. Right lower extremity: no edema Left lower extremity: no edema Psych Other: Normal effect, speech clear Assessment & Plan Assessment & Plan (1) Medicare annual wellness visit, subsequent: Code(s): Z00.00 - Encounter for general adult medical examination without abnormal findings (2) Type 1 diabetes mellitus with morbid obesity: Code(s): E10.69 - Type 1 diabetes mellitus with other specified complication; E66.01 - Morbid (severe) obesity due to excess calories (3) Intellectual disability: Code(s): F79 - Unspecified intellectual disabilities (4) Asthma, moderate persistent: Code(s): J45.40 - Moderate persistent asthma, uncomplicated Qualifiers: Asthma complication type: uncomplicated Qualified Code(s): J45.40 - Moderate persistent asthma, uncomplicated (5) Essential hypertension: Code(s): I10 - Essential (primary) hypertension (6) Tobacco abuse: Code(s): Z72.0 - Tobacco use (7) Schizophrenia: Code(s): F20.9 - Schizophrenia, unspecified Qualifiers: Schizophrenia type: paranoid schizophrenia Qualified Code(s): F20.0 - Paranoid schizophrenia (8) Lipid disorder: Code(s): E78.9 - Disorder of lipoprotein metabolism, unspecified (9) Chronic GERD: Code(s): K21.9 - Gastro-esophageal reflux disease without esophagitis (10) Anxiety, generalized: Code(s): F41.1 - Generalized anxiety disorder (11) Current use of insulin: Code(s): 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 - Instruction to obtain a blood test as part of routine health evaluation, as it was last performed approximately four months ago. Assessment and Plan 38-year-old male with a history of diabetes mellitus, major depression, anxiety, allergies, hypertension chronic GERD, obesity, lipid disorder psychiatric disorder Established with Psychiatry presenting with acute cough of approximately two weeks duration, without accompanying fever or chills. The cough severity is considerable, and despite the use of DayQuil, symptoms persist. Lung auscultation reveals clear breath sounds. Routine health maintenance is also addressed with instructions for a blood test and a recommendation for an annual eye examination. 2. Acute Cough Persistent cough over two weeks with clear lung sounds upon examination. Prescribed medication to be taken once in the morning and once at night to alleviate symptoms. Monitor response to treatment. 3. Eye Examination Recommended an annual eye exam, with arrangements for scheduling an appointment for the patient. [facility] The patient resides with his sister, who may assist with health appointments and care arrangements. Orders: Orders Comprehensive Met. 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 LDL Cholesterol Direct Today E10.69 - Type 1 diabetes mellitus with other specified complication, E66.01 - Morbid (severe) obesity due to excess calories, E78.9 - Disorder of lipoprotein metabolism, unspecified, F20.0 - Paranoid schizophrenia, F33.41 - Major depressive disorder, recurrent, in partial remission, F41.1 - Generalized anxiety disorder, F79 - Unspecified intellectual disabilities, I10 - Essential (primary) hypertension, J45.40 - Moderate persistent asthma, uncomplicated, K21.9 - Gastro-esophageal reflux disease without esophagitis, Z72.0 - Tobacco use, Z79.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 Hemoglobin A1c Today E10.69 - Type 1 diabetes mellitus with other specified complication, E66.01 - Morbid (severe) obesity due to excess calories, E78.9 - Disorder of lipoprotein metabolism, unspecified, F20.0 - Paranoid schizophrenia, F33.41 - Major depressive disorder, recurrent, in partial remission, F41.1 - Generalized anxiety disorder, F79 - Unspecified intellectual disabilities, I10 - Essential (primary) hypertension, J45.40 - Moderate persistent asthma, uncomplicated, K21.9 - Gastro-esophageal reflux disease without esophagitis, Z72.0 - Tobacco use, Z79.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 Complete Blood Count Auto Diff Today E10.69 - Type 1 diabetes mellitus with other specified complication, E66.01 - Morbid (severe) obesity due to excess calories, E78.9 - Disorder of lipoprotein metabolism, unspecified, F20.0 - Paranoid schizophrenia, F33.41 - Major depressive disorder, recurrent, in partial remission, F41.1 - Generalized anxiety disorder, F79 - Unspecified intellectual disabilities, I10 - Essential (primary) hypertension, J45.40 - Moderate persistent asthma, uncomplicated, K21.9 - Gastro-esophageal reflux di sease without esophagitis, Z72.0 - Tobacco use, Z79.4 - jail (current) use of insulin TSH reflex Free T4 Today E10.69 - Type 1 diabetes mellitus with other specified complication, E66.01 - Morbid (severe) obesity due to excess calories, E78.9 - Disorder of lipoprotein metabolism, unspecified, F20.0 - Paranoid schizophrenia, F33.41 - Major depressive disorder, recurrent, in partial remission, F41.1 - Generalized anxiety disorder, F79 - Unspecified intellectual disabilities, I10 - Essential (primary) hypertension, J45.40 - Moderate persistent asthma, uncomplicated, K21.9 - Gastro-esophageal reflux disease without esophagitis, Z72.0 - Tobacco use, Z79.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 Microalbumin, Random (w Creat) Today E10.69 - Type 1 diabetes mellitus with other specified complication, E66.01 - Morbid (severe) obesity due to excess calories, E78.9 - Disorder of lipoprotein metabolism, unspecified, F20.0 - Paranoid schizophrenia, F33.41 - Major depressive disorder, recurrent, in partial remission, F41.1 - Generalized anxiety disorder, F79 - Unspecified intellectual disabilities, I10 - Essential (primary) hypertension, J45.40 - Moderate persistent asthma, uncomplicated, K21.9 - Gastro-esophageal reflux disease without esophagitis, Z72.0 - Tobacco use, Z79.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 Referrals Ophthalmology Referral E11.9 - Type 2 diabetes mellitus without complications, Z01.00 - Encounter for examination of eyes and vision without abnormal findings Medications: New benzonatate 100 mg PO BID PRN 20 caps 0RF cough Quality Reporting (2019) Depression/Bipolar (159/160/161/177) PHQ-9: Total score: 4 Coding Level of Care Code Medicare Subsequent (G0439) Est Pt Level 4 (93366) Diagnoses Medicare annual wellness visit, subsequent Z00.00 Type 1 diabetes mellitus with morbid obesity E10.69; E66.01 Intellectual disability F79 Moderate persistent asthma without complication J45.40 Asthma complication type: uncomplicated Essential hypertension I10 Tobacco abuse Z72.0 Paranoid schizophrenia F20.0 Schizophrenia type: paranoid schizophrenia Lipid disorder E78.9 Chronic GERD K21.9 Anxiety, generalized F41.1 Current use of insulin Z79.4 Recurrent major depressive disorder, in partial remission F33.41 Active/Remission status: in partial remission Viral upper respiratory tract infection J06.9 URI type: unspecified viral URI CPT Codes Advance Care Planning - Time spent: 1-15 minutes, not on file ([id number]) Additional Codes PHQ-9 - 25339 - PHQ-9 Billing: Yes ([id number]) Advance Care Planning Forms completed: MOLST Time spent: 1-15 minutes, not on file
== END 2024-03-12 12:28 | disposition home or self-care (01) ==
PROVIDERS: PCP Internal Medicine; Visit Provider Internal Medicine
DX: Z00.00 Encounter for general adult medical examination without abnormal findings (principal); E10.69 Type 1 diabetes mellitus with other specified complication; E66.01 Morbid (severe) obesity due to excess calories; F20.0 Paranoid schizophrenia; Z79.4 Long term (current) use of insulin; F33.41 Major depressive disorder, recurrent, in partial remission; Z68.39 Body mass index [BMI] 39.0-39.9, adult; F79 Unspecified intellectual disabilities; J45.40 Moderate persistent asthma, uncomplicated; I10 Essential (primary) hypertension; Z72.0 Tobacco use; E78.9 Disorder of lipoprotein metabolism, unspecified; K21.9 Gastro-esophageal reflux disease without esophagitis; F41.1 Generalized anxiety disorder; J06.9 Acute upper respiratory infection, unspecified

== ENCOUNTER → 2024-04-30 10:27 | Outpatient (BNVA) | payer MEDICARE, MEDICAID, SELFPAY | PROVIDERS: PCP Internal Medicine ==

== ENCOUNTER 2024-06-15 12:48 | Outpatient (REF) | payer MEDICARE, MEDICAID, SELFPAY ==
[2024-06-15 16:10] LABS: MANUAL DIFF FLAG NO
[2024-06-15 16:24] LABS: Basophils Percent Auto 0.3 % (0-2); Eosinophils Absolute Auto 0.1 X10*3/uL (0.0-0.4); Eosinophils Percent Auto 0.8 % (0-4); Hematocrit 36.8 % (42.0-52.0); Hemoglobin 11.4 g/dl (14.0-18.0); Imm Gran Abs Auto 0.02 X10*3/uL (0.00-0.03); Imm Gran Pct Auto 0.3 % (0.0-0.4); Lymphocytes Absolute Auto 2.1 X10*3/uL (1.2-4.9); Lymphocytes Percent Auto 32.9 % (20-40); Mean Corpuscular Hemoglobin 23.7 pg (27.0-33.0); Mean Corpuscular Volume 76.3 fL (80.0-98.0); Mean Platelet Volume 9.2 fL (9.4-12.4); Monocytes Absolute Auto 0.6 X10*3/uL (0.1-1.2); Monocytes Percent Auto 9.6 % (2-11); Neutrophils Absolute Auto 3.6 x10*3/uL (2.0-8.3); Neutrophils Percent Auto 56.1 % (45-73); Platelet Count 261 X10*3/uL (160-400); Red Blood Count 4.82 X10*6/uL (4.60-5.80); Red Cell Distribution Width 16.8 % (11.0-16.0); White Blood Count 6.4 X10*3/uL (4.8-10.8)
[2024-06-15 16:34] LABS: Estimated Average Glucose 134 mg/dL; Hemoglobin A1c % 6.3 % (<6.0); Total Hemoglobin (HGBA1C) 2963.6225 umol/L
[2024-06-15 19:57] LABS: Alanine Aminotransferase 16 U/L (0-40); Anion Gap 13 (12-20); Aspartate Amino Transferase 18 U/L (5-37); Bilirubin Total 0.2 mg/dL (0.0-1.0); Blood Urea Nitrogen 12 mg/dL (9-16); Calcium 9.3 mg/dL (8.4-10.2); Carbon Dioxide 22 mmol/L (22-29); Chloride 109 mmol/L (96-108); Estimated Glomerular Filt Rate > 60; Glucose Random 144 mg/dL (60-115); Potassium 3.7 mmol/L (3.3-5.1); Sodium 140 mmol/L (135-145); Total Protein 7.1 g/dL (6.5-8.0)
[2024-06-15 20:18] LABS: Alkaline Phosphatase 70 U/L (39-117)
[2024-06-16 08:33] LABS: HBS Num1 12.68 mIU/mL (0-7.99); HIV AB/AG Nonreactive (Nonreactive); HIV Num 1 0.06 S/CO (0.00-0.99); ~HepC Num1 0.13 S/CO (0.00-0.79); ~Hepatitis B Surface Antibody REACTIVE (Nonreactive); ~Hepatitis C Antibody Nonreactive (Nonreactive)
[2024-06-16 08:47] LABS: Syphilis Screen Nonreactive (Nonreactive)
[2024-06-16 12:54] LABS: Herpes Simplex Type 2 IgG <0.90 index
[2024-06-16 23:59] LABS: LDL Cholesterol Direct 89 mg/dL (<100)
== END 2024-06-15 12:49 | disposition home or self-care (01) ==
LOC: HO.HMGCLDS 12:48
PROVIDERS: PCP Internal Medicine; Visit Provider Internal Medicine
DX: E11.65 Type 2 diabetes mellitus with hyperglycemia (principal); I10 Essential (primary) hypertension; J45.40 Moderate persistent asthma, uncomplicated; F33.41 Major depressive disorder, recurrent, in partial remission; F41.1 Generalized anxiety disorder; F79 Unspecified intellectual disabilities; K21.9 Gastro-esophageal reflux disease without esophagitis; E78.9 Disorder of lipoprotein metabolism, unspecified; F20.0 Paranoid schizophrenia; E66.01 Morbid (severe) obesity due to excess calories; Z68.42 Body mass index [BMI] 45.0-49.9, adult; Z79.4 Long term (current) use of insulin; Z20.2 Contact with and (suspected) exposure to infections with a predominantly sexual mode of transmission
CPT/HCPCS: 36415; 80053; 83036; 83721; 85025; 86695; 86696; 86706; 86780; 86803; 87389; 99212

== ENCOUNTER 2024-06-15 12:48 | Outpatient (AMB) | payer MEDICARE, MEDICAID, SELFPAY ==
--- NOTE | 2024-06-15 12:56 | MHC.PC.OV ---
Vital Signs 06/15/24 13:00 Height 5 ft 9 in Weight 267 lb BMI 39.4 BP 112/72 Blood Pressure Location Rt brachial Position Sitting Respiration 16 Pulse 93 Pulse Source Pulse Oximeter Temp 98.3 F Temp Source Oral Pulse Oximetry (%) 98 Oxygen Delivery Method Room Air Intake Visit Reasons: 3m follow up Allergies iodine [IODINE] Allergy (Unknown, Verified 06/15/24 13:00) RASH, unknown Environmental Allergy (Unknown, Uncoded 06/15/24 13:00) Unknown Loverisol Allergy (Unknown, Uncoded 06/15/24 13:00) unknown SEASONAL ALLERGIES Allergy (Unknown, Uncoded 06/15/24 13:00) ASTHMA Medication List - Last Reconciled 06/15/24 by Manav Jones MD acetaminophen 650 mg PO .Q8 PRN albuterol sulfate 90 mcg/actuation 2 puffs inhalation Q4H PRN alcohol swabs (Alcohol Prep Pads) 2 pad topical BID 90 days benzonatate 100 mg PO BID PRN blood sugar diagnostic ([employer] Ultra Test strips) 4x daily blood-glucose meter (O2 Medtech Ultra2 Meter kit) As directed budesonide-formoterol 160-4.5 mcg/actuation (Symbicort) 2 puffs inhalation BID bupropion HCl XL 150 mg PO QAM divalproex 500 mg PO .daily at night dulaglutide (Trulicity) 1.5 mg subcut QWEEK hydroxyzine HCl 25 mg PO DAILY PRN ibuprofen 400 mg PO Q6H PRN insulin glargine U-300 conc (Toujeo Max U-300 SoloStar) 60 units (0.2 mL) subcut DAILY lancets 4x daily lancets (FreeStyle Lancets) As directed 3 times a day loratadine 10 mg PO DAILY losartan 25 mg PO QAM melatonin 6 mg PO BEDTIME metoprolol tartrate 50 mg PO BID montelukast 10 mg PO BEDTIME omeprazole 40 mg PO DAILY pen needle, diabetic (Comfort EZ Pen [place]) USE DIRECTED ONCE DAILY risperidone 3 mg PO DAILY simvastatin 80 mg PO BEDTIME 90 days topiramate 200 mg PO BID Tobacco use date assessed: 06/15/24 Dental Screening Dental Screen Date: 06/15/24 Did you have a dental visit in the last 12 months?: No Did you have a dental problem in the last 6 months where you did not have access to dental care?: No Was dental information given to patient?: Patient has dentist HPI 3m follow up HPI Details History - The patient is a 38-year-old male presenting for regular f.u apt history of diabetes mellitus, major depression, anxiety, allergies, hypertension chronic GERD, obesity, lipid disorder psychiatric disorder Established with Psychiatry - The patient has a history of Type 2 Diabetes Mellitus managed with Trulicity 1.5 mg and long-acting insulin 60 units. - Reports being visited by a nursing service for insulin administration and glucose monitoring. - The last documented HbA1c was 5.5, indicating good diabetes control. - Concerns regarding lack of blood pressure checks and verification of diabetes-related health records . - Current problems include the complexity of medication management and ensuring accurate communications and documentation between healthcare providers. Medications - Trulicity 1.5 mg, once a week, for Type 2 Diabetes Mellitus. - Long-acting insulin, 60 units (adjusted to 55 units), daily for Type 2 Diabetes Mellitus. these meds are missing in his med list, his medication care manager brought in today patient is requesting STD check today [facility] - Nursing service involved in daily insulin administration and glucose monitoring. - Healthcare provider coordination noted to be necessary for medication and blood pressure management. Patient Instructions - Return for laboratory testing every three months. - Reduce insulin dose to 55 units starting immediately. - Ensure blood sugar is monitored daily by nursing staff. - Follow up with healthcare provider in three months or sooner if issues arise. - continue other meds Review of Systems General: No fever no chills neurological: No headaches no dizzines ear nose throat: No sore throat no hearing difficulty no ear pain cardiovascular: No syncope, no chest pain, no palpitations gastrointestinal: No nausea vomiting or diarrhea endocrine: No polyuria polydipsia no heat intolerance genitourinary: No dysuria skin: No new complaints Physical Exam general: No acute distress HEENT: No acute findings neck: Supple respiratory system: Able to talk in full sentences, no audible wheeze no stridor cardiovascular: S1-S2 RRR gastrointestinal: No pain extremities: No new findings 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 awake oriented x3 motor sensory intact skin: Normal turgor [facility] Medical History DM2 (diabetes mellitus, type 2) Bipolar disorder Obesity due to excess calories Hyperlipidemia LDL goal <100 Essential hypertension Type 2 diabetes mellitus with hyperglycemia, with long-term current use of insulin Sleep apnea Tobacco abuse Suicide attempt by multiple drug overdose History of alcohol abuse Schizophrenia Lipid disorder Chronic GERD Asthma Anxiety, generalized Depression, major, recurrent Current use of insulin Surgical History History of foot surgery History of surgery Family History Father No problems noted. Mother Breast cancer Diabetes Mental health disorder Paternal Aunt Diabetes Social History Household Members: None Housing: Apartment Alcohol intake: former Patient Tobacco Use Status: Current everyday Tobacco user Cigarette Packs Per Day: 0.5 e-Cigarette/Vaping Use: Never Used Substance Use Type: Marijuana Current occupational status: unemployed Cognitive needs: No Hearing needs: No Vision needs: No Questionnaire Thrive Questionnaire Date Thrive assessed: 06/15/24 I am a: Parent/Caregiver What is your living situation today?: I do not have a steady places to live I am staying at a senior care Within the past 12 months, did the food you bought not last and you didn't have the money to get more?: Often true Within the past 12 months, did you worry whether your food would run out before you got money to buy more?: Often true Do you have trouble paying for medicines?: Yes Do you have trouble getting transportation to medical appointments?: Yes Do you have trouble paying your heating and electricity bill?: Yes Do you have trouble taking care of your child, family member or friend?: I choose not to answer this question Do you have trouble with day-to-day activities such as bathing, preparing meals, shopping, managing finances, etc.?: Yes Are you currently unemployed and looking for a job?: Yes Are you interested in more education?: No Please select the resources that you would like help with: Housing/Longterm Currently or been in a relationship where the following occur: I choose not to answer THRIVE Score: 5 AUDIT C Alcohol Use Questionnaire (AUDIT-C) 1. How often do you have a drink containing alcohol?: 2-4 times a month 2. How many drinks containing alcohol do you have on a typical day when you are drinking?: 3 or 4 3. How often do you have six or more drinks on one occasion?: Less than monthly Total Score: 4 KOKI-7 AMB Questionnaire KOKI-7 Date KOKI - 7 assessed: 07/08/23 Feeling nervous, anxious, or on edge: 1 = Several days Not being able to stop or control worryin = Not at all Worrying too much about different things: 0 = Not at all Trouble relaxin = Not at all Being so restless that it is hard to sit still: 0 = Not at all Becoming easily annoyed or irritable: 1 = Several days Feeling afraid as if something awful might happen: 0 = Not at all Total KOKI-7 score (0-4 normal; 5-9 mild; 10-14 moderate; 15-21 severe): 2 Source: Developed by Drs. Gianfranco Cardoso, Cait Centeno, Mark Montano and colleagues, with an educational janice from [employer]. Physical exam (Primary Care) Vital Signs: Last Vital Signs Temp 98.3 F 06/15/24 13:00 Pulse 93 06/15/24 13:00 Resp 16 06/15/24 13:00 BP 112/72 06/15/24 13:00 Pulse Ox 98 06/15/24 13:00 Oxygen Delivery Method Room Air 06/15/24 13:00 BMI result Body Mass Index 39.4 Tobacco/Smoking Status: Tobacco use Status Tobacco use date assessed 06/15/24 06/15/24 13:03 Patient Tobacco Use Status Current everyday Tobacco 06/15/24 12:57 e-Cigarette/Vaping Use Never Used 06/15/24 12:57 Thrive Assessment: Date of Thrive Assessment Date Thrive assessed 06/15/24 06/15/24 12:57 Currently or been in a relationship where the following occur: I choose not to answer Coding Level of Care Code Est Pt Level 4 (62022) Complex EM visit Add On G2211 Diagnoses Type 2 diabetes mellitus with hyperglycemia, with long-term current use of insulin E11.65; Z79.4 Essential hypertension I10 Moderate persistent asthma without complication J45.40 Asthma complication type: uncomplicated STD exposure Z20.2 Recurrent major depressive disorder, in partial remission F33.41 Active/Remission status: in partial remission Anxiety, generalized F41.1 Intellectual disability F79 Chronic GERD K21.9 Lipid disorder E78.9 Paranoid schizophrenia F20.0 Schizophrenia type: paranoid schizophrenia Class 3 severe obesity due to excess calories with serious comorbidity and body mass index (BMI) of 45.0 to 49.9 in adult E66.01; Z68.42 Body mass index: BMI 45.0-49.9 Obesity classification: adult class 3 (BMI >= 40) Serious obesity comorbidity presence: with serious comorbidity Assessment & Plan Assessment & Plan (1) Type 2 diabetes mellitus with hyperglycemia, with long-term current use of insulin: Code(s): E11.65 - Type 2 diabetes mellitus with hyperglycemia; Z79.4 - custodial (current) use of insulin Category: Medical (2) Essential hypertension: Code(s): I10 - Essential (primary) hypertension Category: Medical (3) Asthma, moderate persistent: Code(s): J45.40 - Moderate persistent asthma, uncomplicated Category: Medical Qualifiers: Asthma complication type: uncomplicated Qualified Code(s): J45.40 - Moderate persistent asthma, uncomplicated (4) STD exposure: Code(s): Z20.2 - Contact with and (suspected) exposure to infections with a predominantly sexual mode of transmission Category: Medical (5) Depression, major, recurrent: Code(s): F33.9 - Major depressive disorder, recurrent, unspecified Category: Medical Qualifiers: Active/Remission status: in partial remission Qualified Code(s): F33.41 - Major depressive disorder, recurrent, in partial remission (6) Anxiety, generalized: Code(s): F41.1 - Generalized anxiety disorder Category: Medical (7) Intellectual disability: Code(s): F79 - Unspecified intellectual disabilities Category: Medical (8) Chronic GERD: Code(s): K21.9 - Gastro-esophageal reflux disease without esophagitis Category: Medical (9) Lipid disorder: Code(s): E78.9 - Disorder of lipoprotein metabolism, unspecified Category: Medical (10) Schizophrenia: Code(s): F20.9 - Schizophrenia, unspecified Category: Medical Qualifiers: Schizophrenia type: paranoid schizophrenia Qualified Code(s): F20.0 - Paranoid schizophrenia (11) Obesity due to excess calories: Code(s): E66.09 - Other obesity due to excess calories Category: Medical Qualifiers: Body mass index: BMI 45.0-49.9 Obesity classification: adult class 3 (BMI >= 40) Serious obesity comorbidity presence: with serious comorbidity Qualified Code(s): E66.01 - Morbid (severe) obesity due to excess calories; Z68.42 - Body mass index [BMI] 45.0-49.9, adult Plan History - The patient is a 38-year-old male presenting for regular f.u apt history of diabetes mellitus, major depression, anxiety, allergies, hypertension chronic GERD, obesity, lipid disorder psychiatric disorder Established with Psychiatry - The patient has a history of Type 2 Diabetes Mellitus managed with Trulicity 1.5 mg and long-acting insulin 60 units. - Reports being visited by a nursing service for insulin administration and glucose monitoring. - The last documented HbA1c was 5.5, indicating good diabetes control. - Concerns regarding lack of blood pressure checks and verification of diabetes-related health records . - Current problems include the complexity of medication management and ensuring accurate communications and documentation between healthcare providers. Medications - Trulicity 1.5 mg, once a week, for Type 2 Diabetes Mellitus. - Long-acting insulin, 60 units (adjusted to 55 units), daily for Type 2 Diabetes Mellitus. these meds are missing in his med list, his medication care manager brought in today patient is requesting STD check today [facility] - Nursing service involved in daily insulin administration and glucose monitoring. - Healthcare provider coordination noted to be necessary for medication and blood pressure management. Patient Instructions - Return for laboratory testing every three months. - Reduce insulin dose to 55 units starting immediately. - Ensure blood sugar is monitored daily by nursing staff. - Follow up with healthcare provider in three months or sooner if issues arise. - continue other meds Orders: Orders Hemoglobin A1c Today E11.65 - Type 2 diabetes mellitus with hyperglycemia, E66.01 - Morbid (severe) obesity due to excess calories, E78.9 - Disorder of lipoprotein metabolism, unspecified, F20.0 - Paranoid schizophrenia, F33.41 - Major depressive disorder, recurrent, in partial remission, F41.1 - Generalized anxiety disorder, F79 - Unspecified intellectual disabilities, I10 - Essential (primary) hypertension, J45.40 - Moderate persistent asthma, uncomplicated, K21.9 - Gastro-esophageal reflux disease without esophagitis, Z20.2 - Contact with and (suspected) exposure to infections with a predominantly sexual mode of transmission, Z68.42 - Body mass index [BMI] 45.0-49.9, adult, 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 LDL Cholesterol Direct Today E11.65 - Type 2 diabetes mellitus with hyperglycemia, E66.01 - Morbid (severe) obesity due to excess calories, E78.9 - Disorder of lipoprotein metabolism, unspecified, F20.0 - Paranoid schizophrenia, F33.41 - Major depressive disorder, recurrent, in partial remission, F41.1 - Generalized anxiety disorder, F79 - Unspecified intellectual disabilities, I10 - Essential (primary) hypertension, J45.40 - Moderate persistent asthma, uncomplicated, K21.9 - Gastro-esophageal reflux disease without esophagitis, Z20.2 - Contact with and (suspected) exposure to infections with a predominantly sexual mode of transmission, Z68.42 - Body mass index [BMI] 45.0-49.9, adult, 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 Hepatitis B Surface Antibody Today E11.65 - Type 2 diabetes mellitus with hyperglycemia, E66.01 - Morbid (severe) obesity due to excess calories, E78.9 - Disorder of lipoprotein metabolism, unspecified, F20.0 - Paranoid schizophrenia, F33.41 - Major depressive disorder, recurrent, in partial remission, F41.1 - Generalized anxiety disorder, F79 - Unspecified intellectual disabilities, I10 - Essential (primary) hypertension, J45.40 - Moderate persistent asthma, uncomplicated, K21.9 - Gastro-esophageal reflux disease without esophagitis, Z20.2 - Contact with and (suspected) exposure to infections with a predominantly sexual mode of transmission, Z68.42 - Body mass index [BMI] 45.0-49.9, adult, Z79.4 - custodial (current) use of insulin Herpes Simplex Virus Ab IgG Today E11.65 - Type 2 diabetes mellitus with hyperglycemia, E66.01 - Morbid (severe) obesity due to excess calories, E78.9 - Disorder of lipoprotein metabolism, unspecified, F20.0 - Paranoid schizophrenia, F33.41 - Major depressive disorder, recurrent, in partial remission, F41.1 - Generalized anxiety disorder, F79 - Unspecified intellectual disabilities, I10 - Essential (primary) hypertension, J45.40 - Moderate persistent asthma, uncomplicated, K21.9 - Gastro-esophageal reflux disease without esophagitis, Z20.2 - Contact with and (suspected) exposure to infections with a predominantly sexual mode of transmission, Z68.42 - Body mass index [BMI] 45.0-49.9, adult, 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 Syphilis Screen Today E11.65 - Type 2 diabetes mellitus with hyperglycemia, E66.01 - Morbid (severe) obesity due to excess calories, E78.9 - Disorder of lipoprotein metabolism, unspecified, F20.0 - Paranoid schizophrenia, F33.41 - Major depressive disorder, recurrent, in partial remission, F41.1 - Generalized anxiety disorder, F79 - Unspecified intellectual disabilities, I10 - Essential (primary) hypertension, J45.40 - Moderate persistent asthma, uncomplicated, K21.9 - Gastro-esophageal reflux disease without esophagitis, Z20.2 - Contact with and (suspected) exposure to infections with a predominantly sexual mode of transmission, Z68.42 - Body mass index [BMI] 45.0-49.9, adult, 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 Complete Blood Count Auto Diff Today E11.65 - Type 2 diabetes mellitus with hyperglycemia, E66.01 - Morbid (severe) obesity due to excess calories, E78.9 - Disorder of lipoprotein metabolism, unspecified, F20.0 - Paranoid schizophrenia, F33.41 - Major depressive disorder, recurrent, in partial remission, F41.1 - Generalized anxiety disorder, F79 - Unspecified intellectual disabilities, I10 - Essential (primary) hypertension, J45.40 - Moderate persistent asthma, uncomplicated, K21.9 - Gastro-esophageal reflux disease without esophagitis, Z20.2 - Contact with and (suspected) exposure to infections with a predominantly sexual mode of transmission, Z68.42 - Body mass index [BMI] 45.0-49.9, adult, 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 Panel Today E11.65 - Type 2 diabetes mellitus with hyperglycemia, E66.01 - Morbid (severe) obesity due to excess calories, E78.9 - Disorder of lipoprotein metabolism, unspecified, F20.0 - Paranoid schizophrenia, F33.41 - Major depressive disorder, recurrent, in partial remission, F41.1 - Generalized anxiety disorder, F79 - Unspecified intellectual disabilities, I10 - Essential (primary) hypertension, J45.40 - Moderate persistent asthma, uncomplicated, K21.9 - Gastro-esophageal reflux disease without esophagitis, Z20.2 - Contact with and (suspected) exposure to infections with a predominantly sexual mode of transmission, Z68.42 - Body mass index [BMI] 45.0-49.9, adult, Z79.4 - custodial (current) use of insulin HIV Ab/Ag Today E11.65 - Type 2 diabetes mellitus with hyperglycemia, E66.01 - Morbid (severe) obesity due to excess calories, E78.9 - Disorder of lipoprotein metabolism, unspecified, F20.0 - Paranoid schizophrenia, F33.41 - Major depressive disorder, recurrent, in partial remission, F41.1 - Generalized anxiety disorder, F79 - Unspecified intellectual disabilities, I10 - Essential (primary) hypertension, J45.40 - Moderate persistent asthma, uncomplicated, K21.9 - Gastro-esophageal reflux disease without esophagitis, Z20.2 - Contact with and (suspected) exposure to infections with a predominantly sexual mode of transmission, Z68.42 - Body mass index [BMI] 45.0-49.9, adult, Z79.4 - custodial (current) use of insulin Hepatitis C Antibody Today E11.65 - Type 2 diabetes mellitus with hyperglycemia, E66.01 - Morbid (severe) obesity due to excess calories, E78.9 - Disorder of lipoprotein metabolism, unspecified, F20.0 - Paranoid schizophrenia, F33.41 - Major depressive disorder, recurrent, in partial remission, F41.1 - Generalized anxiety disorder, F79 - Unspecified intellectual disabilities, I10 - Essential (primary) hypertension, J45.40 - Moderate persistent asthma, uncomplicated, K21.9 - Gastro-esophageal reflux disease without esophagitis, Z20.2 - Contact with and (suspected) exposure to infections with a predominantly sexual mode of transmission, Z68.42 - Body mass index [BMI] 45.0-49.9, adult, Z79.4 - custodial (current) use of insulin Medications: Changed From insulin glargine U-300 conc (Toujeo Max U-300 SoloStar) 60 units (0.2 mL) subcut DAILY 24 mL 1RF E11.65 - Type 2 diabetes mellitus with hyperglycemia, 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
[2024-06-15 13:00] VITALS: BP 112/72; PULSE 93; RESP 16; TEMP 36.8; O2SAT 98; BMI 39.4
== END 2024-06-15 13:24 | disposition home or self-care (01) ==
LOC: HO.HMCC 12:49
PROVIDERS: PCP Internal Medicine; Visit Provider Internal Medicine
DX: E11.65 Type 2 diabetes mellitus with hyperglycemia (principal); Z79.4 Long term (current) use of insulin; F33.41 Major depressive disorder, recurrent, in partial remission; F20.0 Paranoid schizophrenia; E66.01 Morbid (severe) obesity due to excess calories; Z68.42 Body mass index [BMI] 45.0-49.9, adult; I10 Essential (primary) hypertension; J45.40 Moderate persistent asthma, uncomplicated; Z20.2 Contact with and (suspected) exposure to infections with a predominantly sexual mode of transmission; F41.1 Generalized anxiety disorder; F79 Unspecified intellectual disabilities; K21.9 Gastro-esophageal reflux disease without esophagitis

== ENCOUNTER 2024-09-15 13:01 | Outpatient (AMB) | payer MEDICARE, MEDICAID, SELFPAY ==
--- NOTE | 2024-09-15 13:02 | A.OFFPC_ITS ---
Vital Signs 09/15/24 13:08 Height 5 ft 9 in Weight 291 lb 4 oz BMI 43.0 BP 126/78 Blood Pressure Location Lt brachial Position Sitting Pulse 86 Pulse Source Pulse Oximeter Pulse Oximetry (%) 97 Intake Visit Reasons: 3m follow up Allergies iodine (IODINE) Allergy (Unknown, Verified 09/15/24 13:09) RASH, unknown Environmental Allergy (Unknown, Uncoded 06/15/24 13:00) Unknown Loverisol Allergy (Unknown, Uncoded 06/15/24 13:00) unknown SEASONAL ALLERGIES Allergy (Unknown, Uncoded 06/15/24 13:00) ASTHMA Medication List - Last Reconciled 09/15/24 by Manav Jones MD acetaminophen 650 mg PO .Q8 PRN albuterol sulfate 90 mcg/actuation 2 puffs inhalation Q4H PRN alcohol swabs (Alcohol Prep Pads) 2 pad topical BID 90 days blood sugar diagnostic (PropertyBridgeTouch Ultra Test strips) 4x daily blood-glucose meter (Adisn Ultra2 Meter kit) As directed budesonide-formoterol 160-4.5 mcg/actuation (Symbicort) 2 puffs inhalation BID bupropion HCl XL 150 mg PO QAM divalproex 500 mg PO .daily at night dulaglutide (Trulicity) 1.5 mg subcut QWEEK 90 days hydroxyzine HCl 25 mg PO DAILY PRN ibuprofen 400 mg PO Q6H PRN insulin glargine U-300 conc (Toujeo Max U-300 SoloStar) 55 units (0.1833 mL) subcut DAILY lancets 4x daily lancets (FreeStyle Lancets) As directed 3 times a day loratadine 10 mg PO DAILY losartan 25 mg PO QAM melatonin 6 mg PO BEDTIME metoprolol tartrate 50 mg PO BID montelukast 10 mg PO BEDTIME omeprazole 40 mg PO DAILY pen needle, diabetic (Comfort EZ Pen Sublette) USE DIRECTED ONCE DAILY risperidone 3 mg PO DAILY simvastatin 80 mg PO BEDTIME 90 days topiramate 200 mg PO BID Tobacco use date assessed: 06/15/24 Dental Screening Dental Screen Date: 06/15/24 HPI 3m follow up HPI Details History - The patient is a 39-year-old male pres enting with uncontrolled diabetes mellitus. - The patient reports consistently eleva mattie blood glucose levels, notably reaching 355 mg/dL as reported by a visiting nurse. Recent readings include 307 mg/dL. - The patient acknowledges dietary indis cretions, specifically consuming foods not conducive to diabetes management such as cookies and donuts, noting difficulty in adhering to dietary restrictions while in a rehabilitation facility due to being addicted to street drugs, and will be staying there for up to 6 m to a year - The current regimen of Trulicity (dula glutide) was erroneously dispensed at a dose of 0.75 mg instead of the prescribed 1.5 mg. - Patient self-administers insulin and T rulicity and suspect issues with medication dosing and management. - The patient is newly under the care of [facility], Medical History: - Lipid disorder - Psychiatric disorder - Gastroesophageal reflux disease (GERD) - Allergies - Asthma - Hypertension - Diabetes mellitus, insulin-dependent - Engagement with psychiatric services - Substance use disorder, currently in r ehabilitation for drug misuse Medications: - Loratadine 10 mg - Losartan 25 mg - Metoprolol 50 mg BID - Montelukast once daily - Omeprazole 40 mg - Simvastatin 80 mg - Insulin (self-administered) - Trulicity (erroneously supplied at 0.7 5 mg) Social History: - Currently residing in a rehabilitation facility for substance misuse with an estimated stay between seven and eight months to a year. - Reports difficulty in maintaining a di abetes-friendly diet due to the facility?s food offerings. Diagnostic Results: from 06/18 - Labs: - Hemoglobin A1c (May): 6.3% - Tests: - HIV: Negative - Hepatitis B immunity confirmed - Herpes simplex virus (cold sore virus) : Positive Problem List - Uncontrolled Type 2 Diabetes Mellitus - Lipid disorder - Psychiatric disorder - Gastroesophageal Reflux Disease (GERD) - Asthma - Essential Hypertension - Allergies - non compliance with diet Patient Instructions - Adjust Trulicity dose to 1.5 mg as pre scribed; ensure correct supply from the pharmacy. - Monitor blood glucose regularly and br ing any concerning readings to the attention of healthcare providers. - Adhere to a diabetes-friendly diet haylie iding high-sugar foods such as cookies and donuts. - Follow up with healthcare provider in three months for blood tests and diabetes management review. - continue other meds f/u 3 M, we will do labs at visit Review of Systems - General: No fever no chills - Neurological: No headaches no dizziness - Ear nose throat: No sore throat no hearing difficulty no ear pain - Cardiovascular: No syncope, no chest pain, no palpitations - Gastrointestinal: No nausea vomiting or diarrhea - Endocrine: No polyuria polydipsia no heat intolerance - Genitourinary: No dysuria , no blood in urine Physical Exam - General: No acute distress - HEENT: No acute findings - Neck: Supple - Respiratory system: Able to talk in f ull sentences, no audible wheeze - Cardiovascular: S1-S2 regular in rate and rhythm - Gastrointestinal: No pain - Extremities: No new findings - BUSINESS TRAINER: Alert awake oriented x3 motor se nsory intact - Skin: Normal turgor [facility] Medical History DM2 (diabetes mellitus, type 2) Bipolar disorder Obesity due to excess calories Hyperlipidemia LDL goal <100 Essential hypertension Type 2 diabetes mellitus with hyperglycemia, with long-term current use of insulin Sleep apnea Tobacco abuse Suicide attempt by multiple drug overdose History of alcohol abuse Schizophrenia Lipid disorder Chronic GERD Asthma Anxiety, generalized Depression, major, recurrent Current use of insulin Surgical History History of foot surgery History of surgery Family History Father No problems noted. Mother Breast cancer Diabetes Mental health disorder Paternal Aunt Diabetes Social History Household Members: None Housing: Apartment Alcohol intake: former Patient Tobacco Use Status: Current everyday Tobacco user Cigarette Packs Per Day: 0.5 e-Cigarette/Vaping Use: Never Used Substance Use Type: Marijuana Current occupational status: unemployed Cognitive needs: No Hearing needs: No Vision needs: No Questionnaire PHQ-9 Over the last 2 weeks, how often have you been bothered by any of the following problems? 1. Little interest or pleasure in doing things: not at all 2. Feeling down, depressed, or hopeless: not at all 3. Trouble falling or staying asleep, or sleeping too much: not at all 4. Feeling tired or having little energy: not at all 5. Poor appetite or overeating: several days 6. Feeling bad about yourself - or that you are a failure or have let yourself or your family down: not at all 7. Trouble concentrating on things, such as reading the newspaper or watching television: nearly every day 8. Moving or speaking so slowly that other people could have noticed. Or the opposite - being so fidgety or restless that you have been moving around a lot more than usual: not at all 9. Thoughts that you would be better off or of hurting yourself in some way: not at all Total score: 4 Depression Screening Interpretation: Negative Depression Screening Done: Yes 56077 - PHQ-9 Billing: Yes Source: Developed by Drs. Gianfranco Cardoso, Cait Centeno, Mark Montano and colleagues, with an educational janice from [employer]. Thrive Questionnaire Date Thrive assessed: 09/15/24 I am a: Parent/Caregiver What is your living situation today?: I do not have a steady places to live I am staying at a long-term Within the past 12 months, did the food you bought not last and you didn't have the money to get more?: Often true Within the past 12 months, did you worry whether your food would run out before you got money to buy more?: Often true Do you have trouble paying for medicines?: Yes Do you have trouble getting transportation to medical appointments?: Yes Do you have trouble paying your heating and electricity bill?: Yes Do you have trouble taking care of your child, family member or friend?: I choose not to answer this question Do you have trouble with day-to-day activities such as bathing, preparing meals, shopping, managing finances, etc.?: Yes Are you currently unemployed and looking for a job?: Yes Are you interested in more education?: No Please select the resources that you would like help with: Housing/Custodial Currently or been in a relationship where the following occur: I choose not to answer THRIVE Score: 5 KOKI-7 AMB Questionnaire KOKI-7 Date KOKI - 7 assessed: 09/15/24 Feeling nervous, anxious, or on edge: 1 = Several days Not being able to stop or control worryin = Not at all Worrying too much about different things: 0 = Not at all Trouble relaxin = Not at all Being so restless that it is hard to sit still: 0 = Not at all Becoming easily annoyed or irritable: 1 = Several days Feeling afraid as if something awful might happen: 0 = Not at all Total KOKI-7 score (0-4 normal; 5-9 mild; 10-14 moderate; 15-21 severe): 2 Source: Developed by Drs. Gianfranco Cardoso, Cait Centeno, Mark Montano and colleagues, with an educational janice from [employer]. KOKI-7 Assessment Billing KOKI-7 Assessment Tool: KOKI-7 Assessment 57890 Physical exam (Primary Care) Vital Signs: Last Vital Signs Pulse 86 09/15/24 13:08 BP 126/78 09/15/24 13:08 Pulse Ox 97 09/15/24 13:08 BMI result Body Mass Index 43.0 Tobacco/Smoking Status: Tobacco use Status Tobacco use date assessed 06/15/24 09/15/24 13:02 Patient Tobacco Use Status Current everyday Tobacco 09/15/24 13:02 e-Cigarette/Vaping Use Never Used 09/15/24 13:02 PHQ-9: PHQ-9 Score PHQ-9: Total score 4 09/15/24 13:10 Depression Screening Interpretation: Negative Thrive Assessment: Date of Thrive Assessment Date Thrive assessed 09/15/24 09/15/24 13:10 Currently or been in a relationship where the following occur: I choose not to answer Coding Level of Care Code Est Pt Level 4 (23770) Complex EM visit Add On G2211 Diagnoses Type 2 diabetes mellitus with hyperglycemia, with long-term current use of insulin E11.65; Z79.4 Essential hypertension I10 Moderate persistent asthma without complication J45.40 Asthma complication type: uncomplicated Recurrent major depressive disorder, in partial remission F33.41 Active/Remission status: in partial remission Anxiety, generalized F41.1 Intellectual disability F79 Chronic GERD K21.9 Lipid disorder E78.9 Paranoid schizophrenia F20.0 Schizophrenia type: paranoid schizophrenia Class 3 severe obesity due to excess calories with serious comorbidity and body mass index (BMI) of 45.0 to 49.9 in adult E66.01; Z68.42 Obesity classification: adult class 3 (BMI >= 40) Serious obesity comorbidity presence: with serious comorbidity Body mass index: BMI 45.0-49.9 Additional Codes KOKI-7 Assessment Billing - KOKI-7 Assessment Tool: KOKI-7 Assessment 42485 ([id number]) PHQ-9 - 57440 - PHQ-9 Billing: Yes ([id number]) Assessment & Plan Assessment & Plan (1) Type 2 diabetes mellitus with hyperglycemia, with long-term current use of insulin: Code(s): E11.65 - Type 2 diabetes mellitus with hyperglycemia; Z79.4 - residential (current) use of insulin Category: Medical (2) Essential hypertension: Code(s): I10 - Essential (primary) hypertension Category: Medical (3) Asthma, moderate persistent: Code(s): J45.40 - Moderate persistent asthma, uncomplicated Category: Medical Qualifiers: Asthma complication type: uncomplicated Qualified Code(s): J45.40 - Moderate persistent asthma, uncomplicated (4) Depression, major, recurrent: Code(s): F33.9 - Major depressive disorder, recurrent, unspecified Category: Medical Qualifiers: Active/Remission status: in partial remission Qualified Code(s): F33.41 - Major depressive disorder, recurrent, in partial remission (5) Anxiety, generalized: Code(s): F41.1 - Generalized anxiety disorder Category: Medical (6) Intellectual disability: Code(s): F79 - Unspecified intellectual disabilities Category: Medical (7) Chronic GERD: Code(s): K21.9 - Gastro-esophageal reflux disease without esophagitis Category: Medical (8) Lipid disorder: Code(s): E78.9 - Disorder of lipoprotein metabolism, unspecified Category: Medical (9) Schizophrenia: Code(s): F20.9 - Schizophrenia, unspecified Category: Medical Qualifiers: Schizophrenia type: paranoid schizophrenia Qualified Code(s): F20.0 - Paranoid schizophrenia (10) Obesity due to excess calories: Code(s): E66.09 - Other obesity due to excess calories Category: Medical Qualifiers: Obesity classification: adult class 3 (BMI >= 40) Serious obesity comorbidity presence: with serious comorbidity Body mass index: BMI 45.0-49.9 Qualified Code(s): E66.01 - Morbid (severe) obesity due to excess calories; Z68.42 - Body mass index [BMI] 45.0-49.9, adult Plan History - The patient is a 39-year-old male presenting with uncontrolled diabetes mellitus. - The patient reports consistently elevated blood glucose levels, notably reaching 355 mg/dL as reported by a visiting nurse. Recent readings include 307 mg/dL. - The patient acknowledges dietary indiscretions, specifically consuming foods not conducive to diabetes management such as cookies and donuts, noting difficulty in adhering to dietary restrictions while in a rehabilitation facility due to being addicted to street drugs, and will be staying there for up to 6 m to a year - The current regimen of Trulicity (dulaglutide) was erroneously dispensed at a dose of 0.75 mg instead of the prescribed 1.5 mg. - Patient self-administers insulin and Trulicity and suspect issues with medication dosing and management. - The patient is newly under the care of [facility], Medical History: - Lipid disorder - Psychiatric disorder - Gastroesophageal reflux disease (GERD) - Allergies - Asthma - Hypertension - Diabetes mellitus, insulin-dependent - Engagement with psychiatric services - Substance use disorder, currently in rehabilitation for drug misuse Medications: - Loratadine 10 mg - Losartan 25 mg - Metoprolol 50 mg BID - Montelukast once daily - Omeprazole 40 mg - Simvastatin 80 mg - Insulin (self-administered) - Trulicity (erroneously supplied at 0.75 mg) Social History: - Currently residing in a rehabilitation facility for substance misuse with an estimated stay between seven and eight months to a year. - Reports difficulty in maintaining a diabetes-friendly diet due to the facility?s food offerings. Diagnostic Results: from 06/18 - Labs: - Hemoglobin A1c (May): 6.3% - Tests: - HIV: Negative - Hepatitis B immunity confirmed - Herpes simplex virus (cold sore virus): Positive Problem List - Uncontrolled Type 2 Diabetes Mellitus - Lipid disorder - Psychiatric disorder - Gastroesophageal Reflux Disease (GERD) - Asthma - Essential Hypertension - Allergies - non compliance with diet Patient Instructions - Adjust Trulicity dose to 1.5 mg as prescribed; ensure correct supply from the pharmacy. - Monitor blood glucose regularly and bring any concerning readings to the attention of healthcare providers. - Adhere to a diabetes-friendly diet avoiding high-sugar foods such as cookies and donuts. - Follow up with healthcare provider in three months for blood tests and diabetes management review. - continue other meds f/u 3 M, we will do labs at visit Medications: Refilled dulaglutide (Trulicity) 1.5 mg subcut QWEEK 13 mL 1RF 90 days E11.65 - Type 2 diabetes mellitus with hyperglycemia
[2024-09-15 13:08] VITALS: BP 126/78; PULSE 86; O2SAT 97; BMI 43.0
== END 2024-09-15 13:18 | disposition home or self-care (01) ==
LOC: HO.HMCC 13:02
PROVIDERS: PCP Internal Medicine; Visit Provider Internal Medicine
DX: E11.65 Type 2 diabetes mellitus with hyperglycemia (principal); Z79.4 Long term (current) use of insulin; E66.01 Morbid (severe) obesity due to excess calories; Z68.42 Body mass index [BMI] 45.0-49.9, adult; F20.0 Paranoid schizophrenia; I10 Essential (primary) hypertension; J45.40 Moderate persistent asthma, uncomplicated; F33.41 Major depressive disorder, recurrent, in partial remission; F41.1 Generalized anxiety disorder; F79 Unspecified intellectual disabilities; K21.9 Gastro-esophageal reflux disease without esophagitis; E78.9 Disorder of lipoprotein metabolism, unspecified

== ENCOUNTER → 2024-09-15 13:01 | Outpatient (BNVA) | payer MEDICARE, MEDICAID, SELFPAY | PROVIDERS: PCP Internal Medicine; Visit Provider Internal Medicine | DX: E11.65 Type 2 diabetes mellitus with hyperglycemia (principal); I10 Essential (primary) hypertension; J45.40 Moderate persistent asthma, uncomplicated; F33.41 Major depressive disorder, recurrent, in partial remission; F41.1 Generalized anxiety disorder; F79 Unspecified intellectual disabilities; K21.9 Gastro-esophageal reflux disease without esophagitis; E78.9 Disorder of lipoprotein metabolism, unspecified; F20.0 Paranoid schizophrenia; E66.01 Morbid (severe) obesity due to excess calories; E66.813 Obesity, class 3; Z68.42 Body mass index [BMI] 45.0-49.9, adult; Z79.4 Long term (current) use of insulin | CPT/HCPCS: 96127; 99212 ==

== ENCOUNTER 2024-11-09 13:53 | Outpatient (AMB) | payer MEDICARE, MEDICAID, SELFPAY ==
[2024-11-09 13:56] VITALS: BP 118/80; PULSE 96; TEMP 36.7; O2SAT 99; BMI 46.4
--- NOTE | 2024-11-09 13:56 | MHC.OFFWIV ---
Intake Vital Signs 11/09/24 13:56 Height 5 ft 9 in Weight 314 lb BMI 46.4 BP 118/80 Blood Pressure Location Rt brachial Position Sitting Pulse 96 Pulse Source Pulse Oximeter Temp 98.1 F Temp Source Oral Pulse Oximetry (%) 99 Oxygen Delivery Method Room Air Intake Visit Reasons: EP pain in right leg Intake Note: pt presents with right calf pain with tightness and swelling Patient Tobacco Use Status: Current everyday Tobacco user Allergies iodine (IODINE) Allergy (Unknown, Verified 11/09/24 14:00) RASH, unknown Environmental Allergy (Unknown, Uncoded 06/15/24 13:00) Unknown Loverisol Allergy (Unknown, Uncoded 06/15/24 13:00) unknown SEASONAL ALLERGIES Allergy (Unknown, Uncoded 06/15/24 13:00) ASTHMA Do you need a note to return to daycare/school/sports/work: No HPI HPI Comments History of Present Illness Details History - The patient is a 39-year-old male presenting with right calf pain following increased physical activity. - The patient reports foot pain that began after a walk in [place] a few days ago, which was more than his usual activity level. - The pain started on the same day as the walk and is described as an aching pain, possibly related to tendon irritation. - The patient has been resting the foot and has tried Tylenol for pain relief. - The patient can walk normally and denies pain in his right foot. Physical Exam General: Cooperative, healthy appearing, comfortable, no acute distress and well developed Orientation: Patient oriented x3 Limitations: No limitations Head: Normal to inspection Ears: Hearing grossly normal bilaterally Nose: Normal External nose present Face and sinus: Normal facial exam Mouth: normal, moist oral mucosa Eyes: Appearance normal, both eyes and all related structures Neck: Normal visual inspection and Yes full ROM Respiratory: Normal respiratory effort and able to speak in complete sentences. Skin: no rashes or lesions noted Neuro: Patient oriented x3, gait normal Extremities: moving all extremities normally, no TTP along achilles on right side, no edema, erythema or warmth of skin along the right calf, negative Misti's. [facility] Medical History DM2 (diabetes mellitus, type 2) Bipolar disorder Obesity due to excess calories Hyperlipidemia LDL goal <100 Essential hypertension Type 2 diabetes mellitus with hyperglycemia, with long-term current use of insulin Sleep apnea Tobacco abuse Suicide attempt by multiple drug overdose History of alcohol abuse Schizophrenia Lipid disorder Chronic GERD Asthma Anxiety, generalized Depression, major, recurrent Current use of insulin Surgical History History of foot surgery History of surgery Family History Father No problems noted. Mother Breast cancer Diabetes Mental health disorder Paternal Aunt Diabetes Social History Household Members: None Housing: Apartment Alcohol intake: former Patient Tobacco Use Status: Current everyday Tobacco user Cigarette Packs Per Day: 0.5 e-Cigarette/Vaping Use: Never Used Substance Use Type: Marijuana Current occupational status: unemployed Cognitive needs: No Hearing needs: No Vision needs: No Review of Systems Const All systems reviewed & are unremarkable except as noted in HPI and below Physical Exam Vital Signs: Last Vital Signs Temp 98.1 F 11/09/24 13:56 Pulse 96 11/09/24 13:56 BP 118/80 11/09/24 13:56 Pulse Ox 99 11/09/24 13:56 Oxygen Delivery Method Room Air 11/09/24 13:56 BMI result Body Mass Index 46.4 Assessment & Plan Assessment & Plan (1) Right calf pain: Code(s): M79.661 - Pain in right lower leg Plan: Plan Patient was informed and verbally consented to the use of an ambient scribe for clinic note documentation during this visit Right calf musculoskeletal pain - Prescribed an anti-inflammatory medication to be taken every 12 hours for two to three days then as needed. - Advised to rest the foot and apply ice to reduce inflammation. - Instructed to avoid taking ibuprofen concurrently with the prescribed medication. - Follow-up with Dr. Jones if symptoms do not improve. Medications: New diclofenac sodium 50 mg PO Q12H PRN 20 tabs 0RF pain Coding Level of Care Code Est Pt Level 3 (47334) Diagnoses Right calf pain M79.661
== END 2024-11-09 14:29 | disposition home or self-care (01) ==
PROVIDERS: PCP Internal Medicine; Visit Provider Physician Assistant
DX: M79.661 Pain in right lower leg (principal)

== ENCOUNTER → 2024-11-09 13:53 | Outpatient (BNVA) | payer MEDICARE, MEDICAID, SELFPAY | PROVIDERS: PCP Internal Medicine; Visit Provider Physician Assistant | DX: M79.661 Pain in right lower leg (principal) | CPT/HCPCS: 99212 ==

== ENCOUNTER 2024-12-02 11:48 | Outpatient (AMB) | payer MEDICARE, MEDICAID, SELFPAY ==
--- NOTE | 2024-12-02 11:54 | MHC.OFFWIV ---
Intake Vital Signs 12/02/24 11:55 Height 5 ft 9 in Weight 314 lb BMI 46.4 BP 112/76 Blood Pressure Location Rt brachial Position Sitting Respiration 20 Pulse 98 Pulse Source Pulse Oximeter Temp 98.3 F Temp Source Oral Pulse Oximetry (%) 100 Oxygen Delivery Method Room Air Intake Visit Reasons: EP Blood sugar @400 8am, no symptoms Intake Note: Pt is here today for a walk in visit. Pt c/o high glucose readings in the morning. Patient Tobacco Use Status: Current everyday Tobacco user Allergies iodine (IODINE) Allergy (Unknown, Verified 12/02/24 11:58) RASH, unknown Environmental Allergy (Unknown, Uncoded 12/02/24 11:58) Unknown Loverisol Allergy (Unknown, Uncoded 12/02/24 11:58) unknown SEASONAL ALLERGIES Allergy (Unknown, Uncoded 12/02/24 11:58) ASTHMA HPI HPI Comments History of Present Illness Details 39 y/o Male patient who presents to the walk in clinic with c/o High Glucose readings this past few days. Reports usually his BG numbers range from 97 - 137. Reports that his BG readings have been elevated since Friday ranging at High 300's. He does admit to eating alot of unhealthy food choices this week - had a Pizza last night for Dinner. Reports that this morning his Sugar was 400 - his home Care Nurse advised to be evaluated at . He is currently prescribed Toujeo 55 units once daily and Trulicy 1.5 every week. In Office reading today was 325 (not fasting) - Pt is Asymptomatic. He does live in a fci, and all his meals are prepared for him. [facility] Medical History (Updated 12/02/24 @ 13:16 by Yeni Espinosa NP) Hyperglycemia due to type 2 diabetes mellitus DM2 (diabetes mellitus, type 2) Bipolar disorder Obesity due to excess calories Hyperlipidemia LDL goal <100 Essential hypertension Type 2 diabetes mellitus with hyperglycemia, with long-term current use of insulin Sleep apnea Tobacco abuse Suicide attempt by multiple drug overdose History of alcohol abuse Schizophrenia Lipid disorder Chronic GERD Asthma Anxiety, generalized Depression, major, recurrent Current use of insulin Surgical History History of foot surgery History of surgery Family History Father No problems noted. Mother Breast cancer Diabetes Mental health disorder Paternal Aunt Diabetes Social History Household Members: None Housing: Apartment Alcohol intake: former Patient Tobacco Use Status: Current everyday Tobacco user Cigarette Packs Per Day: 0.5 e-Cigarette/Vaping Use: Never Used Substance Use Type: Marijuana Current occupational status: unemployed Cognitive needs: No Hearing needs: No Vision needs: No Review of Systems Const All systems reviewed & are unremarkable except as noted in HPI and below Physical Exam Vital Signs: Last Vital Signs Temp 98.3 F 12/02/24 11:55 Pulse 98 12/02/24 11:55 Resp 20 12/02/24 11:55 BP 112/76 12/02/24 11:55 Pulse Ox 100 12/02/24 11:55 Oxygen Delivery Method Room Air 12/02/24 11:55 BMI result Body Mass Index 46.4 Const General: no acute distress Nutritional Appearance: obese morbidly obese Orientation/consciousness: patient oriented x3 GI Inspection: Yes obesity Neuro General: patient oriented x3, gait normal and moves all extremities Psych Speech and movement: Normal speech and movement present Results AMB Random Glucose (hemocue) AMB Random Glucose (hemocue) 322 mg/dL Last Edit by ANGELA Maciel on 12/02/24 12:04 AMB Urinalysis, Automated UA Leukoctes 0 Krystina/uL Last Edit by Severino Olivo CMA on 12/02/24 13:00 UA Nitrite Negative Last Edit by Severino Olivo CMA on 12/02/24 13:00 UA Urobilinogen 0.2 mg/dL Last Edit by Severino Olivo CMA on 12/02/24 13:00 UA Protein 0 mg/dL Last Edit by Severino Olivo CMA on 12/02/24 13:00 UA pH 6.5 Last Edit by Severino Olivo CMA on 12/02/24 13:00 UA Blood 25 Noble/uL Last Edit by Severino Olivo CMA on 12/02/24 13:00 UA Specific [place] 1.010 Last Edit by Severino Olivo CMA on 12/02/24 13:00 UA Ketone Negative Last Edit by Severino Olivo CMA on 12/02/24 13:00 UA Bilirubin 0 mg/dL Last Edit by Severino Olivo CMA on 12/02/24 13:00 UA Glucose 1000 mg/dL Last Edit by Severino Olivo CMA on 12/02/24 13:00 Results Reviewed Results Reviewed: Laboratory Last Values Random Glu (Clinic) 322 mg/dL 12/02/24 12:03 Urine pH (Auto) 6.5 12/02/24 12:59 Specific [place] (Auto) 1.010 12/02/24 12:59 Urine Protein (Auto) 0 mg/dL 12/02/24 12:59 Glucose (UA)(Auto) 1000 mg/dL 12/02/24 12:59 Urine Ketones (Auto) Negative 12/02/24 12:59 Urine Blood (Auto) 25 Noble/uL 12/02/24 12:59 Urine Nitrite (Auto) Negative 12/02/24 12:59 Urine Bilirubin (Auto) 0 mg/dL 12/02/24 12:59 Urine Urobilinogen (Auto) 0.2 mg/dL 12/02/24 12:59 Leukocyte Esterase (Auto) 0 Krystina/uL 12/02/24 12:59 Assessment & Plan Assessment & Plan (1) Hyperglycemia due to type 2 diabetes mellitus: Code(s): E11.65 - Type 2 diabetes mellitus with hyperglycemia Qualifiers: Diabetes mellitus chcf insulin use: with ferry terminal 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 Advised to check BG fasting in the AM and two hours after finishing Dinner. Keep a Log of the BG readings and bring to your appointment on 12/17/24. Strongly advised to make lifestyle changes; weight loss, avoid Carbs, oily foods and high Glucose. Urinalysis Positive for +1000 Glucose. Orders: Orders AMB Random Glucose (hemocue) Today Lexy Paris PA-C Z13.9 - Encounter for screening, unspecified AMB Urinalysis Automated Today Yeni Espinosa NP Z13.9 - Encounter for screening, unspecified Coding Level of Care Code Est Pt Level 4 (50937) Diagnoses Type 2 diabetes mellitus with hyperglycemia, with long-term current use of insulin E11.65; Z79.4 Diabetes mellitus ferry terminal supervisor insulin use: with ferry terminal supervisor use Time Spent (min) 20
[2024-12-02 11:55] VITALS: BP 112/76; PULSE 98; RESP 20; TEMP 36.8; O2SAT 100; BMI 46.4
== END 2024-12-02 13:46 | disposition home or self-care (01) ==
PROVIDERS: PCP Internal Medicine; Visit Provider Nurse Practitioner Family
DX: E11.65 Type 2 diabetes mellitus with hyperglycemia (principal); Z79.4 Long term (current) use of insulin; Z13.9 Encounter for screening, unspecified

== ENCOUNTER → 2024-12-02 11:48 | Outpatient (BNVA) | payer MEDICARE, MEDICAID, SELFPAY | PROVIDERS: PCP Internal Medicine; Visit Provider Nurse Practitioner Family | DX: E11.65 Type 2 diabetes mellitus with hyperglycemia (principal); Z79.4 Long term (current) use of insulin | CPT/HCPCS: 81003; 82948; 99212 ==

== ENCOUNTER 2024-12-08 08:20 | Outpatient (AMB) | payer MEDICARE, MEDICAID, SELFPAY ==
[2024-12-08 08:26] VITALS: BP 120/70; PULSE 89; O2SAT 97; BMI 46.4
--- NOTE | 2024-12-08 08:26 | AM.OFFWIN_ITS ---
Intake Vital Signs 12/08/24 08:26 Height 5 ft 9 in Weight 314 lb BMI 46.4 BP 120/70 Blood Pressure Location Lt brachial Position Sitting Pulse 89 Pulse Source Pulse Oximeter Pulse Oximetry (%) 97 Intake Visit Reasons: EP High blood sugar Patient Tobacco Use Status: Current everyday Tobacco user Allergies iodine (IODINE) Allergy (Unknown, Verified 12/08/24 08:28) RASH, unknown Environmental Allergy (Unknown, Uncoded 12/02/24 11:58) Unknown Loverisol Allergy (Unknown, Uncoded 12/02/24 11:58) unknown SEASONAL ALLERGIES Allergy (Unknown, Uncoded 12/02/24 11:58) ASTHMA Medication List - Last Reconciled 12/08/24 by Manav Jones MD acetaminophen 650 mg PO .Q8 PRN albuterol sulfate 90 mcg/actuation 2 puffs inhalation Q4H PRN alcohol swabs (Alcohol Prep Pads) 2 pad topical BID 90 days blood sugar diagnostic (OneTouch Ultra Test strips) 4x daily blood-glucose meter (Bounce Exchangeuch Ultra2 Meter kit) As directed budesonide-formoterol 160-4.5 mcg/actuation (Symbicort) 2 puffs inhalation BID bupropion HCl XL 150 mg PO QAM diclofenac sodium 50 mg PO Q12H PRN divalproex 500 mg PO .daily at night dulaglutide (Trulicity) 1.5 mg subcut QWEEK 90 days hydroxyzine HCl 25 mg PO DAILY PRN insulin glargine U-300 conc (Toujeo Max U-300 SoloStar) 55 units (0.1833 mL) subcut DAILY lancets 4x daily lancets (FreeStyle Lancets) As directed 3 times a day loratadine 10 mg PO DAILY losartan 25 mg PO QAM melatonin 6 mg PO BEDTIME metoprolol tartrate 50 mg PO BID montelukast 10 mg PO BEDTIME omeprazole 40 mg PO DAILY pen needle, diabetic (Comfort EZ Pen [place]) USE DIRECTED ONCE DAILY risperidone 3 mg PO DAILY simvastatin 80 mg PO BEDTIME 90 days topiramate 200 mg PO BID Do you need a note to return to daycare/school/sports/work: No HPI EP High blood sugar HPI Details History - The patient is a 39-year-old male pres enting with uncontrolled diabetes mellitus. - The patient reports consistently eleva mattie blood glucose levels, notably reaching 355 mg/dL as reported by a visiting nurse. Recent readings include 307 mg/dL. Sometimes going up in 400s - The patient acknowledges dietary indis cretions, specifically consuming foods not conducive to diabetes management such as cookies and donuts, noting difficulty in adhering to dietary restrictions while in a rehabilitation facility. Where he is residing due to history of cocaine abuse and also mental illness. - The current regimen of Trulicity 1.5 m g And he is on long-acting insulin 60 units in the morning. Problem List - Uncontrolled Type 2 Diabetes Mellitus - Psychiatric disorder Patient Instructions - continue Trulicity dose to 1.5 mg as p rescribed; - increase long-acting insulin to 70 uni ts, and add 2 units in the morning if fasting blood sugar is above 180 - follow-up 1 week - patient have nurse come in every [facility] to give the insulin Review of Systems - General: No fever no chills - Neurological: No headaches no dizziness - Ear nose throat: No sore throat no hearing difficulty no ear pain - Cardiovascular: No syncope, no chest pain, no palpitations - Gastrointestinal: No nausea vomiting or diarrhea Physical Exam - General: No acute distress - HEENT: No acute findings - Neck: Supple - Respiratory system: Able to talk in f ull sentences, no audible wheeze - Gastrointestinal: No pain - Extremities: No new findings - 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: Alert awake oriented x3 motor se nsory intact - Skin: Normal turgor PFSH Medical History Hyperglycemia due to type 2 diabetes mellitus DM2 (diabetes mellitus, type 2) Bipolar disorder Obesity due to excess calories Hyperlipidemia LDL goal <100 Essential hypertension Type 2 diabetes mellitus with hyperglycemia, with long-term current use of insulin Sleep apnea Tobacco abuse Suicide attempt by multiple drug overdose History of alcohol abuse Schizophrenia Lipid disorder Chronic GERD Asthma Anxiety, generalized Depression, major, recurrent Current use of insulin Surgical History History of foot surgery History of surgery Family History Father No problems noted. Mother Breast cancer Diabetes Mental health disorder Paternal Aunt Diabetes Social History Household Members: None Housing: Apartment Alcohol intake: former Patient Tobacco Use Status: Current everyday Tobacco user Cigarette Packs Per Day: 0.5 e-Cigarette/Vaping Use: Never Used Substance Use Type: Marijuana Current occupational status: unemployed Cognitive needs: No Hearing needs: No Vision needs: No Physical Exam Vital Signs: Last Vital Signs Pulse 89 12/08/24 08:26 BP 120/70 12/08/24 08:26 Pulse Ox 97 12/08/24 08:26 BMI result Body Mass Index 46.4 Results AMB Random Glucose (hemocue) AMB Random Glucose (hemocue) 272 mg/dL Last Edit by Severino Olivo CMA o n 12/08/24 08:35 Results Reviewed Results Reviewed: Laboratory Last Values Random Glu (Clinic) 272 mg/dL 12/08/24 08:32 Assessment & Plan Assessment & Plan (1) Uncontrolled diabetes mellitus: Qualifiers: Diabetes mellitus type: type 2 Glycemic state: with hyperglycemia Qualified Code(s): E11.65 - Type 2 diabetes mellitus with hyperglycemia (2) Current use of insulin: Code(s): Z79.4 - welder (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 - The patient reports consistently elevated blood glucose levels, notably reaching 355 mg/dL as reported by a visiting nurse. Recent readings include 307 mg/dL. Sometimes going up in 400s - The patient acknowledges dietary indiscretions, specifically consuming foods not conducive to diabetes management such as cookies and donuts, noting difficulty in adhering to dietary restrictions while in a rehabilitation facility. Where he is residing due to history of cocaine abuse and also mental illness. - The current regimen of Trulicity 1.5 mg And he is on long-acting insulin 60 units in the morning. Blood sugar is 276 at this time Problem List - Uncontrolled Type 2 Diabetes Mellitus - Psychiatric disorder Patient Instructions - continue Trulicity dose to 1.5 mg as prescribed; - increase long-acting insulin to 70 units, and add 2 units in the morning if fasting blood sugar is above 180 - follow-up 1 week - patient have nurse come in every morning to give the insulin Orders: Orders AMB Random Glucose (hemocue) Today E11.65 - Type 2 diabetes mellitus with hyperglycemia, Z79.4 - senior living (current) use of insulin Coding Level of Care Code Est Pt Level 4 (48103) Diagnoses Uncontrolled type 2 diabetes mellitus with hyperglycemia E11.65 Diabetes mellitus type: type 2 Glycemic state: with hyperglycemia Current use of insulin Z79.4 Paranoid schizophrenia F20.0 Schizophrenia type: paranoid schizophrenia
== END 2024-12-08 09:00 | disposition home or self-care (01) ==
PROVIDERS: PCP Internal Medicine; Visit Provider Internal Medicine
DX: E11.65 Type 2 diabetes mellitus with hyperglycemia (principal); Z79.4 Long term (current) use of insulin; F20.0 Paranoid schizophrenia

== ENCOUNTER → 2024-12-08 08:20 | Outpatient (BNVA) | payer MEDICARE, MEDICAID, SELFPAY | PROVIDERS: PCP Internal Medicine; Visit Provider Internal Medicine | DX: E11.65 Type 2 diabetes mellitus with hyperglycemia (principal); F20.0 Paranoid schizophrenia; Z79.4 Long term (current) use of insulin | CPT/HCPCS: 82948; 99212 ==

== ENCOUNTER 2024-12-14 12:47 | Outpatient (AMB) | payer MEDICARE, MEDICAID, SELFPAY ==
--- NOTE | 2024-12-14 12:50 | A.OFFPC_ITS ---
Vital Signs 12/14/24 12:51 Height 5 ft 9 in Weight 318 lb BMI 47.0 BP 124/86 Blood Pressure Location Lt brachial Position Sitting Respiration 16 Pulse 91 Pulse Source Pulse Oximeter Pulse Oximetry (%) 99 Intake Visit Reasons: 3m follow up Certified Nurses Aide Required: No Accompanied by: Self / Same As Patient Allergies iodine (IODINE) Allergy (Unknown, Verified 12/14/24 12:52) RASH, unknown Environmental Allergy (Unknown, Uncoded 12/02/24 11:58) Unknown Loverisol Allergy (Unknown, Uncoded 12/02/24 11:58) unknown SEASONAL ALLERGIES Allergy (Unknown, Uncoded 12/02/24 11:58) ASTHMA Medication List - Last Reconciled 12/14/24 by Manav Jones MD acetaminophen 650 mg PO .Q8 PRN albuterol sulfate 90 mcg/actuation 2 puffs inhalation Q4H PRN alcohol swabs (Alcohol Prep Pads) 2 pad topical BID 90 days blood sugar diagnostic (Hookeduch Ultra Test strips) 4x daily blood-glucose meter (Telepathy Ultra2 Meter kit) As directed budesonide-formoterol 160-4.5 mcg/actuation (Symbicort) 2 puffs inhalation BID bupropion HCl XL 150 mg PO QAM diclofenac sodium 50 mg PO Q12H PRN divalproex 500 mg PO .daily at night dulaglutide (Trulicity) 1.5 mg subcut QWEEK 90 days hydroxyzine HCl 25 mg PO DAILY PRN insulin glargine U-300 conc (Toujeo Max U-300 SoloStar) 55 units (0.1833 mL) subcut DAILY lancets 4x daily lancets (FreeStyle Lancets) As directed 3 times a day loratadine 10 mg PO DAILY losartan 25 mg PO QAM melatonin 6 mg PO BEDTIME metoprolol tartrate 50 mg PO BID montelukast 10 mg PO BEDTIME omeprazole 40 mg PO DAILY pen needle, diabetic (Comfort EZ Pen [place]) USE DIRECTED ONCE DAILY risperidone 3 mg PO DAILY simvastatin 80 mg PO BEDTIME 90 days topiramate 200 mg PO BID Tobacco use date assessed: 12/14/24 Dental Screening Dental Screen Date: 12/14/24 Did you have a dental visit in the last 12 months?: Yes Did you have a dental problem in the last 6 months where you did not have access to dental care?: No Was dental information given to patient?: Patient has dentist HPI 3m follow up HPI Details History of Present Illness The patient is a 39-year-old male presenting with uncontrolled diabetes mellitus. Diabetes Mellitus: - Reports an HbA1c of 9.8%, indicating u ncontrolled blood glucose levels. - Currently taking insulin, previously a dvised to take 70 units with an increase of 2 units daily until reaching 76 units. - Taking insulin in the afternoon gio zaragoza, initially advised for the morning administration. - Acknowledges a high-sugar diet, includ ing fast food consumption such as [employer]aco Nunez. - Aware of dietary modifications needed, such as switching to brown rice and wheat bread. Social History: - Lives with or has assistance from an i ndividual named hCata. - Nutritional intake includes fast food and sugary drinks; attempts to consume water and tea. - Previous attempts at modifying diet di scussed, including trying brown rice and wheat bread. - Reports smoking and vaping, with a nee d to reduce consumption. - Joins custodial meal planning with ma genoveva daily menus. - Recent psychiatrist appointment for [facility] health assessment. Diagnostic Results: - Labs: - HbA1c: 9.8%, indicating poor g lycemic control. Problem List - Uncontrolled Diabetes Mellitus Plan - Increase insulin to 80 units in the m orning and add an additional 20 units in the evening to better manage blood glucose levels. - Continue monitoring blood glucose lev els to evaluate the effectiveness of treatment adjustments. - Review and reinforce dietary modificat ions, emphasizing the importance of reducing high-sugar foods and incorporating more fruits and vegetables into the diet. - Discussion on smoking and vaping cessa tion was conducted, recommendation to reduce tobacco use discussed. - Follow-up in two weeks to assess glyce terence control and adjust the management plan if necessary. Review of Systems - General: No fever no chills - Neurological: No headaches no dizziness - Ear nose throat: No sore throat no hearing difficulty no ear pain - Cardiovascular: No syncope, no chest pain, no palpitations - Gastrointestinal: No nausea vomiting or diarrhea - Endocrine: No polyuria polydipsia no heat intolerance - Genitourinary: No dysuria , no blood in urine Physical Exam - General: No acute distress - HEENT: No acute findings - Neck: Supple - Respiratory system: Able to talk in f ull sentences, no audible wheeze - Cardiovascular: S1-S2 regular in rate and rhythm - Gastrointestinal: No pain - Extremities: No new findings - 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 RELIABILITY ENGINEER: Alert awake oriented x3 motor in tact - Skin: Normal turgor PFSH Medical History Hyperglycemia due to type 2 diabetes mellitus DM2 (diabetes mellitus, type 2) Bipolar disorder Obesity due to excess calories Hyperlipidemia LDL goal <100 Essential hypertension Type 2 diabetes mellitus with hyperglycemia, with long-term current use of insulin Sleep apnea Tobacco abuse Suicide attempt by multiple drug overdose History of alcohol abuse Schizophrenia Lipid disorder Chronic GERD Asthma Anxiety, generalized Depression, major, recurrent Current use of insulin Surgical History History of foot surgery History of surgery Family History Father No problems noted. Mother Breast cancer Diabetes Mental health disorder Paternal Aunt Diabetes Social History Household Members: None Housing: Apartment Alcohol intake: former Patient Tobacco Use Status: Current everyday Tobacco user Cigarette Packs Per Day: 0.5 e-Cigarette/Vaping Use: Never Used Substance Use Type: Marijuana Current occupational status: unemployed Cognitive needs: No Hearing needs: No Vision needs: No Questionnaire Thrive Questionnaire Date Thrive assessed: 06/15/24 I am a: Parent/Caregiver What is your living situation today?: I do not have a steady places to live I am staying at a fci Within the past 12 months, did the food you bought not last and you didn't have the money to get more?: Often true Within the past 12 months, did you worry whether your food would run out before you got money to buy more?: Often true Do you have trouble paying for medicines?: Yes Do you have trouble getting transportation to medical appointments?: Yes Do you have trouble paying your heating and electricity bill?: Yes Do you have trouble taking care of your child, family member or friend?: I choose not to answer this question Do you have trouble with day-to-day activities such as bathing, preparing meals, shopping, managing finances, etc.?: Yes Are you currently unemployed and looking for a job?: Yes Are you interested in more education?: No Please select the resources that you would like help with: Housing/Assisted Currently or been in a relationship where the following occur: I choose not to answer THRIVE Score: 5 KOKI-7 AMB Questionnaire KOKI-7 Date KOKI - 7 assessed: 09/15/24 Source: Developed by Drs. Gianfranco Cardoso, Cait Centeno, Mark Montano and colleagues, with an educational janice from [employer]. Physical exam (Primary Care) Vital Signs: Last Vital Signs Pulse 91 12/14/24 12:51 Resp 16 12/14/24 12:51 BP 124/86 12/14/24 12:51 Pulse Ox 99 12/14/24 12:51 BMI result Body Mass Index 47.0 Tobacco/Smoking Status: Tobacco use Status Tobacco use date assessed 12/14/24 12/14/24 12:57 Patient Tobacco Use Status Current everyday Tobacco 12/14/24 12:57 e-Cigarette/Vaping Use Never Used 12/14/24 12:57 Are you ready to quit: No Tobacco cessation counseling provided: Yes Relapse Prevention: discussed the importance of a supportive environment CPT code: 26392 - 4-10 Minutes Thrive Assessment: Date of Thrive Assessment Date Thrive assessed 06/15/24 12/14/24 12:57 Currently or been in a relationship where the following occur: I choose not to answer Results AMB Hemoglobin A1c AMB Hemoglobin A1c 9.8 % Last Edit by Severino Olivo CMA on 12/14/24 13: 44 Results Reviewed Results Reviewed: Laboratory Last Values Hgb A1c (Clinic) 9.8 % (4.0-6.0) H 12/14/24 13:43 Coding Level of Care Code Est Pt Level 3 (23780) Diagnoses Uncontrolled type 2 diabetes mellitus with hyperglycemia E11.65 Diabetes mellitus type: type 2 Glycemic state: with hyperglycemia Current use of insulin Z79.4 Tobacco abuse Z72.0 Additional Codes Vital Signs *Quality* - CPT code: 78185 - 4-10 Minutes ([id number]) Assessment & Plan Assessment & Plan (1) Uncontrolled diabetes mellitus: Category: Medical Qualifiers: Diabetes mellitus type: type 2 Glycemic state: with hyperglycemia Qualified Code(s): E11.65 - Type 2 diabetes mellitus with hyperglycemia (2) Current use of insulin: Code(s): Z79.4 - 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 - Currently taking insulin, previously advised to take 70 units with an increase of 2 units daily until reaching 76 units. - Taking insulin in the afternoon currently, initially advised for the morning administration. - Acknowledges a high-sugar diet, including fast food consumption such as Taco Nunez. - Aware of dietary modifications needed, such as switching to brown rice and wheat bread. Social History: - Lives with or has assistance from an individual named Chata. - Nutritional intake includes fast food and sugary drinks; attempts to consume water and tea. - Previous attempts at modifying diet discussed, including trying brown rice and wheat bread. - Reports smoking and vaping, with a need to reduce consumption. - Joins custodial meal planning with varying daily menus. - Recent psychiatrist appointment for mental health assessment. Diagnostic Results: - Labs: - HbA1c: 9.8%, indicating poor glycemic control. Problem List - Uncontrolled Diabetes Mellitus Plan - Increase insulin to 80 units in the morning and add an additional 20 units in the evening to better manage blood glucose levels. - Continue monitoring blood glucose levels to evaluate the effectiveness of treatment adjustments. - Review and reinforce dietary modifications, emphasizing the importance of reducing high-sugar foods and incorporating more fruits and vegetables into the diet. - Discussion on smoking and vaping cessation was conducted, recommendation to reduce tobacco use discussed. - Follow-up in two weeks to assess glycemic control and adjust the management plan if necessary. 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
[2024-12-14 12:51] VITALS: BP 124/86; PULSE 91; RESP 16; O2SAT 99; BMI 47.0
== END 2024-12-14 13:14 | disposition home or self-care (01) ==
LOC: HO.HMCC 12:48
PROVIDERS: PCP Internal Medicine; Visit Provider Internal Medicine
DX: E11.65 Type 2 diabetes mellitus with hyperglycemia (principal); Z79.4 Long term (current) use of insulin; Z72.0 Tobacco use; Z13.9 Encounter for screening, unspecified

== ENCOUNTER → 2024-12-14 12:47 | Outpatient (BNVA) | payer MEDICARE, MEDICAID, SELFPAY | PROVIDERS: PCP Internal Medicine; Visit Provider Internal Medicine | DX: E11.65 Type 2 diabetes mellitus with hyperglycemia (principal); Z79.4 Long term (current) use of insulin; Z72.0 Tobacco use | CPT/HCPCS: 83036; 99212 ==

== ENCOUNTER 2024-12-23 10:28 | Outpatient (AMB) | payer MEDICARE, MEDICAID, SELFPAY ==
--- NOTE | 2024-12-23 11:40 | MHC.AMNUTRGE ---
Intake Visit Reasons: Initial Nutrition Assessment Allergies iodine (IODINE) Allergy (Unknown, Verified 12/14/24 12:52) RASH, unknown Environmental Allergy (Unknown, Uncoded 12/02/24 11:58) Unknown Loverisol Allergy (Unknown, Uncoded 12/02/24 11:58) unknown SEASONAL ALLERGIES Allergy (Unknown, Uncoded 12/02/24 11:58) ASTHMA Nutrition Presentation Details: Met with patient and staff (Kavitha) at his [facility] program today to discuss diabetes management. Pt lives with several others who all take turns cooking. Kavitha reports that [employer] is now requiring that fund be spent on healthy food but the facility has not been provided with any specific guidelines. Pt also gets his one SNAP-HIP education provided. Pt has a locker where he can lock up non-perishable foods but overall his food is generally safe in the house. RD was able to sit in on a resident meeting where they planned out the menu for the week. Is currently still smoking and in the pre-contemplation phase in regard to cessation. Risks/benefits reviewed and patient agreed to have the CHW reach out to him for further discussion. Is now using 80u in the AM and 20 u PM but reports he regularly skips breakfast and was not quite ready to change this routine. May think about it moving forward. Does not do any intentional exercise right now but Kavitha may help patient get enrolled at the [facility] using senior financial consultant assistance. Does eat vegetables but agrees he could eat more. Reports he had tried a sensor in the past but it fell off. Could not really recall who helped with that process. Is open to an endocrine referral and trying the sensor again. Currently just checking fingersticks on occasion. Unstable SDH: Reports use of SNAP Food allergies/aversions: No Physical activity assessment: Reviewed Diet Assmnt Dietary counseling: diabetic diet and Mediterranean Who buys your food: other Who prepares/cooks your food: self and other Meal frequency: regular: lunch, dinner and snacks and irregular: breakfast Lifestyle Emotional Eating: Reports anxiety, comfort/relaxation and boredom Family support: Yes Exercise: No BS Monitoring Frequency of blood glucose monitorin times daily Assessment Nutrition recommendation: RD nutrition education Diagnosis Nutrition problem #1: food nutri know defi and undesirable food choices As related to (etiology) #1: lack of nutrit education, unsure how to apply info and physical inactivity As evidenced by (sign/symptom) #1: food recall, prior fail - chg behavior, knowledge deficit of diet, elevated FBS and elevated HgbA1c Monitoring/Goals Nutrition problem monitoring: total energy intake, HgbA1c, level of knowledge/skill, total PRO intake, glucose, fasting, total CHO intake and oral fluids Nutrition goal/outcome: list 3 diab diet goals (Increase fiber intake, eat breakfast 2-3 days/week, increase movement), HgbA1c <7% in 3 months, list 3 CHO foods and list 3 high fiber foods Outcome progress: verbalized understanding Learning/Education Readiness to learn: good Stages of change: action Educational materials provided: Yes (planning healthy meals, snack guide, HIP) Date of nutrition screenin12/23/24 Follow-up details: RD will call patient for next appointment in a few weeks after next MD appt Follow up Follow-up frequency: monthly Time Outcome assessment time: 60 minutes [facility] Medical History Hyperglycemia due to type 2 diabetes mellitus DM2 (diabetes mellitus, type 2) Bipolar disorder Obesity due to excess calories Hyperlipidemia LDL goal <100 Essential hypertension Type 2 diabetes mellitus with hyperglycemia, with long-term current use of insulin Sleep apnea Tobacco abuse Suicide attempt by multiple drug overdose History of alcohol abuse Schizophrenia Lipid disorder Chronic GERD Asthma Anxiety, generalized Depression, major, recurrent Current use of insulin Surgical History History of foot surgery History of surgery Family History Father No problems noted. 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
== END 2024-12-23 11:52 | disposition home or self-care (01) ==
LOC: HO.HMCCN 10:28
PROVIDERS: PCP Internal Medicine; Visit Provider Dietitian, Registered
DX: E11.65 Type 2 diabetes mellitus with hyperglycemia (principal); Z79.4 Long term (current) use of insulin

== ENCOUNTER → 2024-12-23 10:28 | Outpatient (BNVA) | payer MEDICARE, MEDICAID, SELFPAY | PROVIDERS: PCP Internal Medicine; Visit Provider Dietitian, Registered | DX: E11.65 Type 2 diabetes mellitus with hyperglycemia (principal); F17.210 Nicotine dependence, cigarettes, uncomplicated; Z71.6 Tobacco abuse counseling; Z79.4 Long term (current) use of insulin | CPT/HCPCS: 97802 ==

== ENCOUNTER 2024-12-29 11:31 | Outpatient (AMB) | payer MEDICARE, MEDICAID, SELFPAY ==
--- NOTE | 2024-12-29 11:37 | MHC.PC.OV ---
Vital Signs 12/29/24 11:38 Height 5 ft 9 in Weight 324 lb BMI 47.8 BP 118/82 Blood Pressure Location Lt brachial Position Sitting Pulse 96 Pulse Source Pulse Oximeter Pulse Oximetry (%) 97 Intake Visit Reasons: 2 weeks f/up Allergies iodine (IODINE) Allergy (Unknown, Verified 12/29/24 11:38) RASH, unknown Environmental Allergy (Unknown, Uncoded 12/02/24 11:58) Unknown Loverisol Allergy (Unknown, Uncoded 12/02/24 11:58) unknown SEASONAL ALLERGIES Allergy (Unknown, Uncoded 12/02/24 11:58) ASTHMA Medication List - Last Reconciled 12/29/24 by Manav Jones MD acetaminophen 650 mg PO .Q8 PRN albuterol sulfate 90 mcg/actuation 2 puffs inhalation Q4H PRN alcohol swabs (Alcohol Prep Pads) 2 pad topical BID 90 days blood sugar diagnostic ([employer]uch Ultra Test strips) 4x daily blood-glucose meter (Placeling Ultra2 Meter kit) As directed budesonide-formoterol 160-4.5 mcg/actuation (Symbicort) 2 puffs inhalation BID bupropion HCl XL 150 mg PO QAM diclofenac sodium 50 mg PO Q12H PRN divalproex 500 mg PO .daily at night dulaglutide (Trulicity) 1.5 mg subcut QWEEK 90 days hydroxyzine HCl 25 mg PO DAILY PRN insulin glargine U-300 conc (Toujeo Max U-300 SoloStar) subcutaneously 2 times a day; 80 u at 8 am and 20 u at 8 pm 90 days lancets 4x daily lancets (FreeStyle Lancets) As directed 3 times a day loratadine 10 mg PO DAILY losartan 25 mg PO QAM melatonin 6 mg PO BEDTIME metoprolol tartrate 50 mg PO BID montelukast 10 mg PO BEDTIME omeprazole 40 mg PO DAILY pen needle, diabetic (Comfort EZ Pen [place]) USE DIRECTED ONCE DAILY risperidone 3 mg PO DAILY simvastatin 80 mg PO BEDTIME 90 days topiramate 200 mg PO BID Tobacco use date assessed: 12/14/24 Dental Screening Dental Screen Date: 12/14/24 HPI 2 weeks f/up HPI Details History of Present Illness The patient is a 39-year-old male presenting for management of uncontrolled diabetes mellitus. Uncontrolled type 2 diabetes mellitus: - The patient presents for management of uncontrolled diabetes. - Recent blood glucose readings this month show fasting levels of 330, 249, and 233 mg/dL, with this morning's fasting level at 233 mg/dL. - Nighttime readings were 242, 204, 380, and 269 mg/dL. - His current medication regimen includes 80 units of insulin in the morning and 20 units at night, along with Trulicity, which is believed to be 1.5 mg. - consultation with an cyber analyst is recommended, and a referral has been placed. Medical History: - Diabetes mellitus Medications: - Insulin: 80 units in the morning and 20 units at night for diabetes. - Trulicity 1.5 mg for diabetes. Social History: - The patient is in a program where a nurse administers his insulin. - A medical dermatologist has visited the patient as part of this program. Diagnostic Results: - Self-monitored blood glucose (fasting) this month: 330, 249, and 233 mg/dL. - Self-monitored blood glucose (nighttime): 242, 204, 380, and 269 mg/dL. Problem List - Uncontrolled type 2 diabetes mellitus Plan - A referral to endocrinology has been placed , and the patient's retail account representative was advised to call and schedule the appointment. - Continue the current insulin regimen of 80 units in the morning and 20 units at night. - Increase Trulicity from 1.5 mg to 3 mg to improve blood glucose control. - The use of a continuous glucose monitor, as suggested by a medical dermatologist, will be addressed by the cyber analyst. - A follow-up visit is scheduled in two weeks to manage blood sugar levels while awaiting the endocrinology appointment. Review of Systems - General: No fever no chills - Neurological: No headaches no dizziness - Ear nose throat: No sore throat no hearing difficulty no ear pain - Cardiovascular: No syncope, no chest pain, no palpitations - Gastrointestinal: No nausea vomiting or diarrhea Physical Exam - General: No acute distress - HEENT: No acute findings - Neck: Supple - Respiratory system: Able to talk in full sentences, no audible wheeze - Cardiovascular: S1-S2 regular in rate and rhythm - Gastrointestinal: No pain - Extremities: No new findings - MINERAL ECONOMIST: Alert awake oriented x3 motor intact - Skin: Normal turgor [facility] Medical History Hyperglycemia due to type 2 diabetes mellitus DM2 (diabetes mellitus, type 2) Bipolar disorder Obesity due to excess calories Hyperlipidemia LDL goal <100 Essential hypertension Type 2 diabetes mellitus with hyperglycemia, with long-term current use of insulin Sleep apnea Tobacco abuse Suicide attempt by multiple drug overdose History of alcohol abuse Schizophrenia Lipid disorder Chronic GERD Asthma Anxiety, generalized Depression, major, recurrent Current use of insulin Surgical History History of foot surgery History of surgery Family History Father No problems noted. Mother Breast cancer Diabetes Mental health disorder Paternal Aunt Diabetes Social History Household Members: None Housing: Apartment Alcohol intake: former Patient Tobacco Use Status: Current everyday Tobacco user Cigarette Packs Per Day: 0.5 e-Cigarette/Vaping Use: Never Used Substance Use Type: Marijuana Current occupational status: unemployed Cognitive needs: No Hearing needs: No Vision needs: No Questionnaire Thrive Questionnaire Date Thrive assessed: 06/15/24 I am a: Parent/Caregiver What is your living situation today?: I do not have a steady places to live I am staying at a assisted Within the past 12 months, did the food you bought not last and you didn't have the money to get more?: Often true Within the past 12 months, did you worry whether your food would run out before you got money to buy more?: Often true Do you have trouble paying for medicines?: Yes Do you have trouble getting transportation to medical appointments?: Yes Do you have trouble paying your heating and electricity bill?: Yes Do you have trouble taking care of your child, family member or friend?: I choose not to answer this question Do you have trouble with day-to-day activities such as bathing, preparing meals, shopping, managing finances, etc.?: Yes Are you currently unemployed and looking for a job?: Yes Are you interested in more education?: No Please select the resources that you would like help with: Housing/Fdc Currently or been in a relationship where the following occur: I choose not to answer THRIVE Score: 5 KOKI-7 AMB Questionnaire KOKI-7 Date KOKI - 7 assessed: 09/15/24 Source: Developed by Cait Hendrix.W. Jacobo, Mark Montano and colleagues, with an educational janice from [employer]. Physical exam (Primary Care) Vital Signs: Last Vital Signs Pulse 96 12/29/24 11:38 BP 118/82 12/29/24 11:38 Pulse Ox 97 12/29/24 11:38 BMI result Body Mass Index 47.8 Tobacco/Smoking Status: Tobacco use Status Tobacco use date assessed 12/14/24 12/29/24 11:38 Patient Tobacco Use Status Current everyday Tobacco 12/29/24 11:38 e-Cigarette/Vaping Use Never Used 12/29/24 11:38 Thrive Assessment: Date of Thrive Assessment Date Thrive assessed 06/15/24 12/29/24 11:38 Currently or been in a relationship where the following occur: I choose not to answer Coding Level of Care Code Est Pt Level 3 (81364) Diagnoses Uncontrolled type 2 diabetes mellitus with hyperglycemia E11.65 Diabetes mellitus type: type 2 Glycemic state: with hyperglycemia Current use of insulin Z79.4 Assessment & Plan Assessment & Plan (1) Uncontrolled diabetes mellitus: Category: Medical Qualifiers: Diabetes mellitus type: type 2 Glycemic state: with hyperglycemia Qualified Code(s): E11.65 - Type 2 diabetes mellitus with hyperglycemia (2) Current use of insulin: Code(s): Z79.4 - detention (current) use of insulin Category: Medical Plan . Uncontrolled type 2 diabetes mellitus: - The patient presents for management of uncontrolled diabetes. - Recent blood glucose readings this month show fasting levels of 330, 249, and 233 mg/dL, with this morning's fasting level at 233 mg/dL. - Nighttime readings were 242, 204, 380, and 269 mg/dL. - His current medication regimen includes 80 units of insulin in the morning and 20 units at night, along with Trulicity, which is believed to be 1.5 mg. - consultation with an cyber analyst is recommended, and a referral has been placed. Medical History: - Diabetes mellitus Medications: - Insulin: 80 units in the morning and 20 units at night for diabetes. - Trulicity 1.5 mg for diabetes. Social History: - The patient is in a program where a nurse administers his insulin. - A medical dermatologist has visited the patient as part of this program. Diagnostic Results: - Self-monitored blood glucose (fasting) this month: 330, 249, and 233 mg/dL. - Self-monitored blood glucose (nighttime): 242, 204, 380, and 269 mg/dL. Problem List - Uncontrolled type 2 diabetes mellitus Plan - A referral to endocrinology has been placed , and the patient's retail account representative was advised to call and schedule the appointment. - Continue the current insulin regimen of 80 units in the morning and 20 units at night. - Increase Trulicity from 1.5 mg to 3 mg to improve blood glucose control. - The use of a continuous glucose monitor, as suggested by a medical dermatologist, will be addressed by the cyber analyst. - A follow-up visit is scheduled in two weeks to manage blood sugar levels while awaiting the endocrinology appointment. Medications: Changed From dulaglutide (Trulicity) 1.5 mg subcut QWEEK 90 days 13 mL 1RF E11.65 - Type 2 diabetes mellitus with hyperglycemia To dulaglutide 1.5 mg (0.5 mL) subcut QWEEK 90 days 6.5 mL 1RF E11.65 - Type 2 diabetes mellitus with hyperglycemia From dulaglutide 1.5 mg (0.5 mL) subcut QWEEK 90 days 6.5 mL 1RF E11.65 - Type 2 diabetes mellitus with hyperglycemia To dulaglutide 3 mg subcut QWEEK 13 mL 1RF 90 days E11.65 - Type 2 diabetes mellitus with hyperglycemia
[2024-12-29 11:38] VITALS: BP 118/82; PULSE 96; O2SAT 97; BMI 47.8
== END 2024-12-29 11:52 | disposition home or self-care (01) ==
LOC: HO.HMCC 11:32
PROVIDERS: PCP Internal Medicine; Visit Provider Internal Medicine
DX: E11.65 Type 2 diabetes mellitus with hyperglycemia (principal); Z79.4 Long term (current) use of insulin

== ENCOUNTER → 2024-12-29 11:31 | Outpatient (BNVA) | payer MEDICARE, MEDICAID, SELFPAY | PROVIDERS: PCP Internal Medicine; Visit Provider Internal Medicine | DX: E11.65 Type 2 diabetes mellitus with hyperglycemia (principal); Z79.4 Long term (current) use of insulin | CPT/HCPCS: 99212 ==

== ENCOUNTER 2025-01-14 08:46 | Outpatient (AMB) | payer MEDICARE, MEDICAID, SELFPAY ==
--- NOTE | 2025-01-14 08:50 | MHC.PC.OV ---
Vital Signs 01/14/25 08:51 Height 5 ft 9 in Weight 329 lb BMI 48.6 BP 128/76 Blood Pressure Location Lt brachial Position Sitting Pulse 91 Pulse Source Pulse Oximeter Pulse Oximetry (%) 98 Intake Visit Reasons: 2 weeks f/up Allergies iodine (IODINE) Allergy (Unknown, Verified 01/14/25 08:52) RASH, unknown Environmental Allergy (Unknown, Uncoded 12/02/24 11:58) Unknown Loverisol Allergy (Unknown, Uncoded 12/02/24 11:58) unknown SEASONAL ALLERGIES Allergy (Unknown, Uncoded 12/02/24 11:58) ASTHMA Medication List - Last Reconciled 01/14/25 by Manav Jones MD acetaminophen 650 mg PO .Q8 PRN albuterol sulfate 90 mcg/actuation 2 puffs inhalation Q4H PRN alcohol swabs (Alcohol Prep Pads) 2 pad topical BID 90 days blood sugar diagnostic ([employer]asterTouch Ultra Test strips) 4x daily blood-glucose meter ([employer]uch Ultra2 Meter kit) As directed budesonide-formoterol 160-4.5 mcg/actuation (Symbicort) 2 puffs inhalation BID bupropion HCl XL 150 mg PO QAM diclofenac sodium 50 mg PO Q12H PRN divalproex 500 mg PO .daily at night dulaglutide 4.5 mg (0.5 mL) subcut QWEEK 90 days hydroxyzine HCl 25 mg PO DAILY PRN insulin glargine U-300 conc (Toujeo Max U-300 SoloStar) subcutaneously 2 times a day; 80 u at 8 am and 20 u at 8 pm 90 days lancets 4x daily lancets (FreeStyle Lancets) As directed 3 times a day loratadine 10 mg PO DAILY losartan 25 mg PO QAM melatonin 6 mg PO BEDTIME metoprolol tartrate 50 mg PO BID montelukast 10 mg PO BEDTIME omeprazole 40 mg PO DAILY pen needle, diabetic (Comfort EZ Pen [place]) USE DIRECTED ONCE DAILY risperidone 3 mg PO DAILY simvastatin 80 mg PO BEDTIME 90 days topiramate 200 mg PO BID Tobacco use date assessed: 12/14/24 Dental Screening Dental Screen Date: 12/14/24 HPI HPI Comments History of Present Illness Details History of Present Illness The patient is a 39 year old individual presenting for follow-up management of uncontrolled diabetes. Type 2 diabetes mellitus: - The patient has persistently high blood sugar levels, with fasting readings consistently above 200 and a recent morning reading of 405. - Current medications include Trulicity 3 mg weekly, which the patient has been self-administering subcutaneously for a couple of weeks without any issues, and insulin glargine 80 units at 8 AM and 20 units at 8 PM. - The patient has an upcoming appointment with endocrinology on the of this month. Medical History: - Diabetes mellitus Medications: - Trulicity 3 mg subcutaneous injection once a week for diabetes. - Insulin glargine 80 units at 8 AM and 20 units at 8 PM for diabetes. [facility] Medical History Hyperglycemia due to type 2 diabetes mellitus DM2 (diabetes mellitus, type 2) Bipolar disorder Obesity due to excess calories Hyperlipidemia LDL goal <100 Essential hypertension Type 2 diabetes mellitus with hyperglycemia, with long-term current use of insulin Sleep apnea Tobacco abuse Suicide attempt by multiple drug overdose History of alcohol abuse Schizophrenia Lipid disorder Chronic GERD Asthma Anxiety, generalized Depression, major, recurrent Current use of insulin Surgical History History of foot surgery History of surgery Family History Father No problems noted. Mother Breast cancer Diabetes Mental health disorder Paternal Aunt Diabetes Social History Household Members: None Housing: Apartment Alcohol intake: former Patient Tobacco Use Status: Current everyday Tobacco user Cigarette Packs Per Day: 0.5 e-Cigarette/Vaping Use: Never Used Substance Use Type: Marijuana Current occupational status: unemployed Cognitive needs: No Hearing needs: No Vision needs: No Questionnaire Thrive Questionnaire Date Thrive assessed: 06/15/24 I am a: Parent/Caregiver What is your living situation today?: I do not have a steady places to live I am staying at a longterm Within the past 12 months, did the food you bought not last and you didn't have the money to get more?: Often true Within the past 12 months, did you worry whether your food would run out before you got money to buy more?: Often true Do you have trouble paying for medicines?: Yes Do you have trouble getting transportation to medical appointments?: Yes Do you have trouble paying your heating and electricity bill?: Yes Do you have trouble taking care of your child, family member or friend?: I choose not to answer this question Do you have trouble with day-to-day activities such as bathing, preparing meals, shopping, managing finances, etc.?: Yes Are you currently unemployed and looking for a job?: Yes Are you interested in more education?: No Please select the resources that you would like help with: Housing/Half-Way Currently or been in a relationship where the following occur: I choose not to answer THRIVE Score: 5 KOKI-7 AMB Questionnaire KOKI-7 Date KOKI - 7 assessed: 09/15/24 Source: Developed by Drs. Gianfranco Cardoso, Cait Centeno, Mark Montano and colleagues, with an educational janice from [employer]. Review of Systems Narrative Review of Systems - General: No fever no chills - Neurological: No headaches no dizziness - Ear nose throat: No sore throat no hearing difficulty no ear pain - Cardiovascular: No syncope, no chest pain, no palpitations - Gastrointestinal: No nausea vomiting or diarrhea - Endocrine: No polyuria polydipsia no heat intolerance - Genitourinary: No dysuria , no blood in urine Physical exam (Primary Care) Vital Signs: Last Vital Signs Pulse 91 01/14/25 08:51 BP 128/76 01/14/25 08:51 Pulse Ox 98 01/14/25 08:51 BMI result Body Mass Index 48.6 Tobacco/Smoking Status: Tobacco use Status Tobacco use date assessed 12/14/24 01/14/25 08:53 Patient Tobacco Use Status Current everyday Tobacco 01/14/25 08:53 e-Cigarette/Vaping Use Never Used 01/14/25 08:53 Thrive Assessment: Date of Thrive Assessment Date Thrive assessed 06/15/24 01/14/25 08:53 Currently or been in a relationship where the following occur: I choose not to answer Narrative Physical Exam - General: No acute distress - HEENT: No acute findings - Neck: Supple - Respiratory system: Able to talk in full sentences, no audible wheeze - Gastrointestinal: No pain - Extremities: No new findings - DIABETES SOLUTIONS SPECIALIST: Alert awake oriented x3 motor intact - Skin: Normal turgor Coding Level of Care Code Est Pt Level 3 (67424) Diagnoses Uncontrolled type 2 diabetes mellitus with hyperglycemia E11.65 Diabetes mellitus type: type 2 Glycemic state: with hyperglycemia Current use of insulin Z79.4 Assessment & Plan Assessment & Plan (1) Uncontrolled diabetes mellitus: Category: Medical Qualifiers: Diabetes mellitus type: type 2 Glycemic state: with hyperglycemia Qualified Code(s): E11.65 - Type 2 diabetes mellitus with hyperglycemia (2) Current use of insulin: Code(s): Z79.4 - senior living (current) use of insulin Category: Medical Plan Problem List - Type 2 diabetes mellitus Plan - The dosage of Trulicity will be increased from 3 mg to 4.5 mg, administered once weekly. - A new prescription for Trulicity 4.5 mg will be sent to [facility]. - The patient is to continue with the rest of the current medications. - The patient will proceed with the endocrinology follow-up appointment. - A follow-up visit is scheduled for February. Medications: Changed From dulaglutide 3 mg subcut QWEEK 90 days 13 mL 1RF E11.65 - Type 2 diabetes mellitus with hyperglycemia To dulaglutide 4.5 mg (0.5 mL) subcut QWEEK 6.5 mL 1RF 90 days E11.65 - Type 2 diabetes mellitus with hyperglycemia
[2025-01-14 08:51] VITALS: BP 128/76; PULSE 91; O2SAT 98; BMI 48.6
== END 2025-01-14 09:11 | disposition home or self-care (01) ==
LOC: HO.HMCC 08:47
PROVIDERS: PCP Internal Medicine; Visit Provider Internal Medicine
DX: E11.65 Type 2 diabetes mellitus with hyperglycemia (principal); Z79.4 Long term (current) use of insulin

== ENCOUNTER → 2025-01-14 08:46 | Outpatient (BNVA) | payer MEDICARE, MEDICAID, SELFPAY | PROVIDERS: PCP Internal Medicine; Visit Provider Internal Medicine | DX: E11.65 Type 2 diabetes mellitus with hyperglycemia (principal); Z79.4 Long term (current) use of insulin | CPT/HCPCS: 99212 ==

== ENCOUNTER 2025-01-19 08:32 | Outpatient (AMB) | payer MEDICARE, MEDICAID, SELFPAY ==
--- NOTE | 2025-01-19 09:06 | A.OFFVIS_ITS ---
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 He was last seen in endocrinology in 2021 Past medical history: DM2, HTN, HLD, schizophrenia, bipolar Diagnosed in his 20s who presents for continued management of diabetes. He lives in a snf setting. He is accompanied by a staff member. CGM has not worked for him in the past despite multiple attempts Micro and macrovascular complications: none known Diabetes medications: Toujeo 80 units am, 20 units pm Trulicity 4.5mg weekly Intolerant of metformin due to diarrhea Blood glucose monitoring: BG 200-high 300s. Checks fasting am (around 5am) and 5pm in the evening Hemoglobin A1C 9.8% 12/14 Symptoms: Denies numbness, tingling and cramping in lower extremities. Hypoglycemia: denies, Hyperglycemia: denies denies frequency, denies nocturia, polydypsia Diet: twice a day. Breakfast: skips Lunch: wrap or eggs or sandwich. Dinner: brown rice and meat with vegetables. Snack at night: cereal or fruit - if bg less than 115mg/dl will make sure to have snack. Drinks mostly water during the day, fruit punch (cortez it down) Activity: walk on most days over 40 minutes, also rides bicycle on occasion. Eye exam: due. Needs referral ROS CONSTITUTIONAL: Denies weight loss, fever and chills. HEENT: Denies changes in vision and hearing. RESPIRATORY: Denies SOB and cough. CV: Denies palpitations and CP GI: Denies abdominal pain, nausea, vomiting and diarrhea. : Denies dysuria and urinary frequency. MSK: Denies new myalgia and joint pain. SKIN: Denies rash and pruritus. NEUROLOGICAL: Denies headache PSYCHIATRIC: Denies recent changes in mood. PHYSICAL EXAM: GENERAL: Alert and oriented x 3. NAD EYES: EOMI. Anicteric. HENT: Moist mucous membranes. No scleral icterus. No cervical lymphadenopathy. LUNGS: Clear to auscultation bilaterally. CARDIOVASCULAR: Regular rate and rhythm. No murmur. No JVD. ABDOMEN: Soft, non-tender +bs EXTREMITIES: No edema. Non-tender. SKIN: No rashes or lesions. Warm. NEUROLOGIC: No focal neurological deficits. CN II-XII grossly intact PSYCHIATRIC: Cooperative. Appropriate mood and affect [facility] Medical History Hyperglycemia due to type 2 diabetes mellitus DM2 (diabetes mellitus, type 2) Bipolar disorder Obesity due to excess calories Hyperlipidemia LDL goal <100 Essential hypertension Type 2 diabetes mellitus with hyperglycemia, with long-term current use of insulin Sleep apnea Tobacco abuse Suicide attempt by multiple drug overdose History of alcohol abuse Schizophrenia Lipid disorder Chronic GERD Asthma Anxiety, generalized Depression, major, recurrent Current use of insulin Surgical History History of foot surgery History of surgery Family History Father No problems noted. Mother Breast cancer Diabetes Mental health disorder Paternal Aunt Diabetes Social History Household Members: None Housing: Apartment Alcohol intake: former Patient Tobacco Use Status: Current everyday Tobacco user Cigarette Packs Per Day: 0.5 e-Cigarette/Vaping Use: Never Used Substance Use Type: Marijuana Current occupational status: unemployed Cognitive needs: No Hearing needs: No Vision needs: No Assessment & Plan Assessment & Plan (1) Type 2 diabetes mellitus with hyperglycemia, with long-term current use of insulin: Code(s): E11.65 - Type 2 diabetes mellitus with hyperglycemia; Z79.4 - long term acute care registered nurse (current) use of insulin Category: Medical Plan 39 year old for diabetes follow up Uncontrolled. Stop trulicity, start mounjaro at 5mg, will likely need to be titrated up Increase toujeo to 60units am, 60units pm (total increase over 24hous is 20mg) Treat hypoglycemia by rules of 15s Follow up in 5 weeks or sooner as needed Coding Level of Care Code Est Pt Level 4 (38773) Diagnoses Type 2 diabetes mellitus with hyperglycemia, with long-term current use of insulin E11.65; Z79.4
[2025-01-19 09:09] VITALS: BP 120/80; PULSE 107; O2SAT 97; BMI 48.5
[2025-01-19 09:18] LABS: Glucose, Whole Blood 299 mg/dL (60-115)
== END 2025-01-19 09:30 | disposition home or self-care (01) ==
LOC: HO.ENCR 08:33
PROVIDERS: PCP Internal Medicine; Visit Provider Internal Medicine
DX: E11.65 Type 2 diabetes mellitus with hyperglycemia (principal); Z79.4 Long term (current) use of insulin

== ENCOUNTER → 2025-01-19 08:32 | Outpatient (BNVA) | payer MEDICARE, MEDICAID, SELFPAY | PROVIDERS: PCP Internal Medicine; Visit Provider Internal Medicine | DX: E11.65 Type 2 diabetes mellitus with hyperglycemia (principal); Z79.4 Long term (current) use of insulin; Z79.85 Long-term (current) use of injectable non-insulin antidiabetic drugs | CPT/HCPCS: 82947; 99212 ==